=== PATIENT | female | born 1950 | race Caucasian/White ===

== ENCOUNTER 2018-05-04 08:00 | Outpatient (CLI) | payer OTHER ==
[2018-05-04 19:37] LABS: BILIRUBIN,URINE NEGATIVE (NEGATIVE); GLUCOSE, URINE (UA) NEGATIVE (NEGATIVE); KETONES,URINE (UA) NEGATIVE (NEGATIVE); LEUKOCYTE ESTERASE, URINE LARGE (NEGATIVE); NITRITE,URINE NEGATIVE (NEGATIVE); OCCULT BLOOD,URINE SMALL (NEGATIVE); PH,URINE 5.5 PH (5.0-7.5); PROTEIN,URINE NEGATIVE (NEGATIVE); UROBILINOGEN,URINE 0.2 (NORMAL) E.U./dL (NORMAL)
[2018-05-04 19:38] LABS: BACTERIA,URINE None Seen /HPF (None Seen); CLARITY,URINE CLEAR (CLEAR); RBC,URINE 0-5 /HPF (0-5); SQUAMOUS EPITHELIAL CELL,UR NONE SEEN (<= Few)
== END 2018-05-04 08:01 | disposition home or self-care (01) ==
LOC: LAB.R 08:00
PROVIDERS: ATTEND Physician Assistant Medical
DX: R30.0 Dysuria (principal); N10 Acute pyelonephritis
CPT/HCPCS: 81001; 87077; 87086; 87181

== ENCOUNTER 2019-04-26 08:00 | Outpatient (CLI) | payer OTHER ==
[2019-04-26 18:38] LABS: BILIRUBIN,URINE NEGATIVE (NEGATIVE); GLUCOSE, URINE (UA) NEGATIVE (NEGATIVE); KETONES,URINE (UA) NEGATIVE (NEGATIVE); LEUKOCYTE ESTERASE, URINE TRACE (NEGATIVE); NITRITE,URINE NEGATIVE (NEGATIVE); OCCULT BLOOD,URINE TRACE-INTA (NEGATIVE); PROTEIN,URINE NEGATIVE (NEGATIVE); UROBILINOGEN,URINE 0.2 (NORMAL) E.U./dL (NORMAL)
[2019-04-26 18:46] LABS: CLARITY,URINE CLEAR (CLEAR)
[2019-04-26 18:53] LABS: BACTERIA,URINE Rare /HPF (None Seen); RBC,URINE 0-5 /HPF (0-5); SQUAMOUS EPITHELIAL CELL,UR FEW Squamous (<= Few)
== END 2019-04-26 23:59 | disposition home or self-care (01) ==
LOC: LAB.N 08:00
PROVIDERS: ATTEND Physician Assistant Medical
DX: M54.5 Low back pain (principal); N10 Acute pyelonephritis
CPT/HCPCS: 81001; 81003; 87086

== ENCOUNTER 2019-10-23 08:00 | Outpatient (CLI) | payer OTHER ==
[2019-10-23 12:29] LABS: BASOPHILS # (AUTO) 0.1 10^3/uL (0.0-0.1); BASOPHILS % (AUTO) 1.2 %; EOSINOPHILS % (AUTO) 0.6 %; HGB - HEMOGLOBIN 12.6 g/dL (12.0-16.0); LYMPHOCYTES # (AUTO) 1.6 10^3/uL (1.5-3.5); LYMPHOCYTES % (AUTO) 31.1 %; MEAN CORPUSCULAR HEMOGLOBIN 27.7 pg (27.0-31.0); MEAN CORPUSCULAR HGB CONC 31.6 g/dL (32.0-36.0); MEAN CORPUSCULAR VOLUME 87.7 fL (81.0-99.0); MEAN PLATELET VOLUME 9.6 fL (7.9-10.8); MONOCYTES # (AUTO) 0.3 10^3/uL (0.0-1.0); MONOCYTES % (AUTO) 5.3 %; NEUTROPHILS # (AUTO) 3.1 10^3/uL (1.5-6.6); NEUTROPHILS % (AUTO) 61.6 %; PLT - PLATELET COUNT 225 10^3/uL (130-450); RED BLOOD COUNT 4.55 10^6/uL (4.20-5.40); RED CELL DISTRIBUTION WIDTH 13.2 % (12.0-15.0); WHITE BLOOD COUNT 5.1 x10^3/uL (4.8-10.8)
[2019-10-23 12:45] LABS: ALBUMIN 4.4 g/dL (3.2-5.5); ALBUMIN/GLOBULIN RATIO 1.1 (1.0-2.2); BILIRUBIN,TOTAL 0.7 mg/dL (0.2-1.0); CALCIUM 9.1 mg/dL (8.5-10.3); TOTAL PROTEIN 8.3 g/dL (6.7-8.2)
== END 2019-10-23 23:59 | disposition home or self-care (01) ==
LOC: LAB.N 08:00
PROVIDERS: ATTEND Physician Assistant Medical
DX: I10 Essential (primary) hypertension (principal)
CPT/HCPCS: 36415; 80053; 85025

== ENCOUNTER 2020-01-30 08:00 | Outpatient (CLI) | payer OTHER ==
[2020-01-30 19:39] LABS: BILIRUBIN,URINE NEGATIVE (NEGATIVE); GLUCOSE, URINE (UA) NEGATIVE (NEGATIVE); KETONES,URINE (UA) NEGATIVE (NEGATIVE); LEUKOCYTE ESTERASE, URINE TRACE (NEGATIVE); NITRITE,URINE NEGATIVE (NEGATIVE); OCCULT BLOOD,URINE NEGATIVE (NEGATIVE); PROTEIN,URINE NEGATIVE (NEGATIVE); UROBILINOGEN,URINE 0.2 (NORMAL) E.U./dL (NORMAL)
[2020-01-30 19:56] LABS: CLARITY,URINE CLEAR (CLEAR)
[2020-01-30 20:10] LABS: BACTERIA,URINE Rare /HPF (None Seen); EPITHELIAL CELLS,UR RARE Transitional /HPF (<= Few); RBC,URINE 0-5 /HPF (0-5); SQUAMOUS EPITHELIAL CELL,UR FEW Squamous (<= Few); WBC CLUMPS,URINE PRESENT
== END 2020-01-30 23:59 | disposition home or self-care (01) ==
LOC: LAB.R 08:00
PROVIDERS: ATTEND Physician Assistant Medical
DX: N39.0 Urinary tract infection, site not specified (principal)
CPT/HCPCS: 81001; 81003; 87086

== ENCOUNTER 2020-02-19 08:57 | Outpatient (CLI) | payer OTHER ==
[2020-02-19 12:22] LABS: CALCIUM 8.8 mg/dL (8.5-10.3); CREATININE 0.9 mg/dL (0.4-1.0)
== END 2020-02-19 08:58 | disposition home or self-care (01) ==
LOC: LAB.N 08:57
PROVIDERS: ATTEND Physician Assistant Medical
DX: E87.6 Hypokalemia (principal)
CPT/HCPCS: 36415; 80048

== ENCOUNTER 2020-09-10 11:10 | Outpatient (CLI) | payer OTHER | END 2020-09-10 11:11 | disposition home or self-care (01) | LOC: COV 11:10 | PROVIDERS: ATTEND Family Medicine | DX: Z20.828 Contact with and (suspected) exposure to other viral communicable diseases (principal) ==

== ENCOUNTER 2022-09-30 08:15 | Outpatient (CLI) | payer MEDICARE | END 2022-09-30 08:16 | disposition critical access hospital (66) | LOC: EMS 08:15 | DX: R41.0 Disorientation, unspecified (principal); R44.3 Hallucinations, unspecified | CPT/HCPCS: A0425; A0429 ==

== ENCOUNTER 2022-09-30 09:35 | Emergency (ER) | payer MEDICARE, OTHER ==
[2022-09-30 10:37] LABS: BASOPHILS % (AUTO) 0.5 %; EOSINOPHILS % (AUTO) 0.4 %; HCT - HEMATOCRIT 36.6 % (37.0-47.0); HGB - HEMOGLOBIN 12.3 g/dL (12.0-16.0); LYMPHOCYTES # (AUTO) 1.1 10^3/uL (1.5-3.5); LYMPHOCYTES % (AUTO) 19.1 %; MEAN CORPUSCULAR HEMOGLOBIN 29.3 pg (27.0-31.0); MEAN CORPUSCULAR HGB CONC 33.6 g/dL (32.0-36.0); MEAN CORPUSCULAR VOLUME 87.1 fL (81.0-99.0); MEAN PLATELET VOLUME 9.3 fL (7.9-10.8); MONOCYTES # (AUTO) 0.2 10^3/uL (0.0-1.0); MONOCYTES % (AUTO) 4.2 %; NEUTROPHILS # (AUTO) 4.3 10^3/uL (1.5-6.6); NEUTROPHILS % (AUTO) 75.6 %; PLT - PLATELET COUNT 205 10^3/uL (130-450); RED CELL DISTRIBUTION WIDTH 12.4 % (12.0-15.0); WHITE BLOOD COUNT 5.7 x10^3/uL (4.8-10.8)
[2022-09-30 10:38] LABS: MUDS CUTOFF CONCENTRATIONS CUTOFF CONC BELOW:
[2022-09-30 10:40] LABS: BILIRUBIN,URINE NEGATIVE (NEGATIVE); GLUCOSE, URINE (UA) NEGATIVE (NEGATIVE); KETONES,URINE (UA) 15 mg/dL (NEGATIVE); LEUKOCYTE ESTERASE, URINE LARGE (NEGATIVE); NITRITE,URINE NEGATIVE (NEGATIVE); OCCULT BLOOD,URINE SMALL (NEGATIVE); PROTEIN,URINE NEGATIVE (NEGATIVE); UROBILINOGEN,URINE 0.2 (NORMAL) E.U./dL (NORMAL)
[2022-09-30 10:51] LABS: CLARITY,URINE HAZY (CLEAR)
[2022-09-30 10:52] LABS: AMPHETAMINE SCREEN,URINE NEGATIVE (NEGATIVE); BACTERIA,URINE Few /HPF (None Seen); BARBITURATE SCREEN,UR NEGATIVE (NEGATIVE); BENZODIAZEPINES SCREEN, URINE NEGATIVE (NEGATIVE); COCAINE SCREEN URINE NEGATIVE (NEGATIVE); METHADONE SCREEN, URINE NEGATIVE (NEGATIVE); METHAMPHETAMINES SCREEN, URINE NEGATIVE (NEGATIVE); OPIATE SCREEN, URINE NEGATIVE (NEGATIVE); OXYCODONE SCREEN, URINE NEGATIVE (NEGATIVE); PROPOXYPHENE SCREEN, URINE NEGATIVE (NEGATIVE); SQUAMOUS EPITHELIAL CELL,UR FEW Squamous (<= Few); THC CANNABINOID SCREEN, URINE NEGATIVE (NEGATIVE); TRICYCLIC ANTIDEPRESSANT,URINE NEGATIVE (NEGATIVE)
[2022-09-30 10:53] LABS: ACETAMINOPHEN < 10 ug/mL (10-30); ALBUMIN 4.5 g/dL (3.2-5.5); ALBUMIN/GLOBULIN RATIO 1.3 (1.0-2.2); ALKALINE PHOSPHATASE 58 IU/L (42-121); ALT ALANINE AMINOTRANSFERASE 16 IU/L (10-60); AST ASPARTATE AMINOTRANSFERASE 26 IU/L (10-42); BILIRUBIN,TOTAL 1.3 mg/dL (0.2-1.0); BUN - BLOOD UREA NITROGEN 24 mg/dL (6-20); CALCIUM 9.3 mg/dL (8.5-10.3); CARBON DIOXIDE - CO2 26 mmol/L (21-32); CHLORIDE 102 mmol/L (101-111); CREATININE 0.9 mg/dL (0.4-1.0); ETOH - ETHANOL < 5.0 mg/dL; GFR - MDRD 62 (>89); GLUCOSE 103 mg/dL (70-100); LIPASE 34 U/L (22-51); POTASSIUM 3.5 mmol/L (3.5-5.0); SALICYLATE < 6.0 mg/dL; SODIUM 136 mmol/L (135-145); TOTAL PROTEIN 7.9 g/dL (6.7-8.2)
--- NOTE | 2022-09-30 11:44 | CT Report ---
PROCEDURE: HEAD WO INDICATIONS: new onset hallucinations TECHNIQUE: Noncontrast 4.5 mm thick angled axial sections acquired from the foramen magnum to the vertex. For r adiation dose reduction, the following was used: automated exposure control, adjustment of mA and/or kV according to patient size. COMPARISON: None. FINDINGS: Image quality: Excellent. CSF spaces: Basal cisterns are patent. No extra-axial fluid collections. Ventricles are normal in size and shape. Brain: No midline shift. No intracranial masses or hemorrhage. Gilbert-white matter interface is norm al. Skull and face: Calvarium and visualized facial bones are intact, without suspicious lesions. Sinuses: Opacification of the visualized portions of the right maxillary sinus. Opacification of the some of the right ethmoid air cells. Paranasal sinuses, left maxillary sinus, frontal sinuses are jonathan ar. Mastoids are clear. IMPRESSION: No acute intracranial abnormality. Opacification of the visualized portions of the right maxillary sinus most consistent with sinusitis. Chronicity is uncertain. Reviewed by: Niraj Salinas MD on 09/30/2022 10:42 AM RYAN Approved by: Niraj Salinas MD on 09/30/2022 10:42 AM RYAN Station ID: [id number]
--- NOTE | 2022-09-30 12:06 | ED Physician Documentation ---
PD HPI MHE - Stated complaint Stated Complaint: MHE - Chief complaint Chief Complaint: MHE - History obtained from History obtained from: Patient, EMS - History of Present Illness Primary symptom: Psychosis Timing - onset: How many days ago (2) Contributing factors: Family, Money Similar symptoms before: Has not had sx before Recently seen: Not recently seen - Additional information Additional information: 71-year-old female the history of hypertension presents to the emergency department with francis hallucinations that she is seeing her sister have CPR performed on her. She had this yesterday and she has had this again today. She called 911 both times. Today she was been asked to come to the emergency department for evaluation. She is able to tell me now that she does not believe there was ever anything wrong with her sister. She tells me that she is under significant stress. The 2 of them are living in an apartment they have lived there for 20 years and they are now both without jobs and looking for subsidy to the rent. PD PAST MEDICAL HISTORY - Past Medical History Past Medical History: Yes Cardiovascular: Hypertension - Past Surgical History Past Surgical History: Yes General: Cholecystectomy - Present Medications Home Medications: Ambulatory Orders Medication Instructions Recorded Confirmed Atenolol 50 mg PO BID 05/18/13 09/30/22 Prazosin HCl [Minipress] 2 mg PO 3-4XD 05/18/13 09/30/22 - Allergies Allergies/Adverse Reactions: Allergies Allergy/AdvReac Type Severity Reaction Status Date / Time cefaclor [From Ceclor] Allergy Intermediate Itching Verified 09/30/22 09:50 cephradine [From Velosef] Allergy Intermediate Itching Verified 09/30/22 09:50 erythromycin base Allergy Intermediate Nausea Verified 09/30/22 09:50 [Erythromycin Base] naproxen [From Naprosyn] Allergy Intermediate Rash Verified 09/30/22 09:50 sulfamethoxazole Allergy Intermediate Rash Verified 09/30/22 09:50 [From Septra] trimethoprim [From Septra] Allergy Intermediate Rash Verified 09/30/22 09:50 erythromycin estolate * Allergy Mild Nausea Verified 09/30/22 09:50 [From Ilosone] Penicillins Allergy Mild Rash Verified 09/30/22 09:50 ibuprofen [From Motrin] AdvReac Intermediate Itching Verified 09/30/22 09:50 meperidine HCl * AdvReac Intermediate Headache Verified 09/30/22 09:50 [From Demerol] acetaminophen [From Tylox] AdvReac Mild Nausea Verified 09/30/22 09:50 oxycodone HCl * [From Tylox] AdvReac Mild Nausea Verified 09/30/22 09:50 bp Allergy Intermediate Edema Uncoded 09/30/22 09:50 - Social History Does the pt smoke?: No Smoking Status: Never smoker Does the pt drink ETOH?: No Does the pt have substance abuse?: No - Immunizations Immunizations are current?: Yes - POLST Patient has POLST: No Results - Vitals Vitals: Vital Signs - 24 hr 09/30/22 09:36 Temperature 36.3 C L Heart Rate 80 Respiratory 16 Rate Blood Pressure 203/113 H O2 Saturation 100 Oxygen O2 Source Room air - Labs Labs: Laboratory Tests 09/30/22 09/30/22 09/30/22 10:25 10:25 10:25 WBC 5.7 RBC 4.20 Hgb 12.3 Hct 36.6 L MCV 87.1 MCH 29.3 MCHC 33.6 RDW 12.4 Plt Count 205 MPV 9.3 Neut # (Auto) 4.3 Lymph # (Auto) 1.1 L Bell # (Auto) 0.2 Eos # (Auto) 0.0 Baso # (Auto) 0.0 Absolute Nucleated RBC 0.00 Nucleated RBC % 0.0 Sodium 136 Potassium 3.5 Chloride 102 Carbon Dioxide 26 Anion Gap 8.0 BUN 24 H Creatinine 0.9 Estimated GFR (MDRD) 62 L Glucose 103 H Calcium 9.3 Total Bilirubin 1.3 H AST 26 ALT 16 Alkaline Phosphatase 58 Total Protein 7.9 Albumin 4.5 Globulin 3.4 Albumin/Globulin Ratio 1.3 Lipase 34 TSH 2.11 Urine Color Urine Clarity Urine pH Ur Specific [place] Urine Protein Urine Glucose (UA) Urine Ketones Urine Occult Blood Urine Nitrite Urine Bilirubin Urine Urobilinogen Ur Leukocyte Esterase Urine RBC Urine WBC Ur Squamous Epith Cells Urine Bacteria Ur Microscopic Review Urine Culture Comments Salicylates < 6.0 Urine Opiates Screen Ur Oxycodone Screen Urine Methadone Screen Ur Propoxyphene Screen Acetaminophen < 10 L Ur Barbiturates Screen Ur Tricyclics Screen Ur Phencyclidine Scrn Ur Amphetamine Screen U Methamphetamines Scrn U Benzodiazepines Scrn Urine Cocaine Screen U Cannabinoids Screen Ethyl Alcohol < 5.0 09/30/22 10:28 WBC RBC Hgb Hct MCV MCH MCHC RDW Plt Count MPV Neut # (Auto) Lymph # (Auto) Bell # (Auto) Eos # (Auto) Baso # (Auto) Absolute Nucleated RBC Nucleated RBC % Sodium Potassium Chloride Carbon Dioxide Anion Gap BUN Creatinine Estimated GFR (MDRD) Glucose Calcium Total Bilirubin AST ALT Alkaline Phosphatase Total Protein Albumin Globulin Albumin/Globulin Ratio Lipase TSH Urine Color YELLOW Urine Clarity HAZY Urine pH 6.0 Ur Specific [place] 1.015 Urine Protein NEGATIVE Urine Glucose (UA) NEGATIVE Urine Ketones 15 H Urine Occult Blood SMALL H Urine Nitrite NEGATIVE Urine Bilirubin NEGATIVE Urine Urobilinogen 0.2 (NORMAL) Ur Leukocyte Esterase LARGE H Urine RBC 6-10 H Urine WBC 6-10 H Ur Squamous Epith Cells FEW Squamous Urine Bacteria Few Ur Microscopic Review INDICATED Urine Culture Comments INDICATED Salicylates Urine Opiates Screen NEGATIVE Ur Oxycodone Screen NEGATIVE Urine Methadone Screen NEGATIVE Ur Propoxyphene Screen NEGATIVE Acetaminophen Ur Barbiturates Screen NEGATIVE Ur Tricyclics Screen NEGATIVE Ur Phencyclidine Scrn NEGATIVE Ur Amphetamine Screen NEGATIVE U Methamphetamines Scrn NEGATIVE U Benzodiazepines Scrn NEGATIVE Urine Cocaine Screen NEGATIVE U Cannabinoids Screen NEGATIVE Ethyl Alcohol - Rads (name of study) CT head Radiology: Prelim report reviewed (Impression: No acute intracranial abnormality. Opacification Acacian of the visualized portion of the right maxillary sinus most consistent with sinusitis. Chronicity is uncertain.), EMP read indepedently, See rad report PD MEDICAL DECISION MAKING - ED course Complexity details: reviewed old records, reviewed results, re-evaluated patient, considered differential, d/w patient, d/w family ED course: 71 y/o female with acute psychosis and poor memory. Her case is not clear and we have asked for assistance with diagnosis from telepsych. At shift change her telepsych evaluation is pending and her care is turned over to the oncoming ED physician. Findings of sinusitis on CT are correlated with chronic sinus congestion and no current symptoms. She reports undulation of symptoms over years time. Departure - Departure Clinical Impression: Psychiatric symptoms
--- NOTE | 2022-09-30 17:05 | ED Physician Documentation ---
ED Addendum - Addendum Addendum: 09/30/22 17:[address] Car at shift change. 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 Case discussed with tele-psychiatrist. Recommends risperidone 1 mg p.o. nightly which we will prescribe and I sent the prescription electronically to [facility] per the daughters preference. She is willing to take her home and we have asked social work to give them resources on help with dementia. Discussed with patient that she is no longer able to drive which is very upsetting to her. Her blood pressure also remained on the high side here and I sent a prescription for his lisinopril 20 mg p.o. daily to [facility] as well. Disposition: Discharged home Condition: Stable Diagnosis: 1. Early onset dementia with psychosis
--- NOTE | 2022-09-30 17:10 | TELEPSYCH PHYS NOTE ---
Telepsych Consultation Note Consult: Array Name: KEILY JAMISON : 1950 Date and Time: 09/30/2022 7:04:22 PM Location of the patient: [facility] ED Location of the doctor: My office in [place], [place] Length of consult: 50 mins This evaluation was conducted via video telepsychiatry with the assistance of onsite staff Reason for consult: ED evaluation Requested by: Dr Car History of Present Illness: 71 year-old female without formal psychiatric history presents to the ED BIB EMS after she called 911 c/o hallucinations and paranoid/persecutory delusions regarding home invasion and concerns that her sister was getting CPR. At this time, pt is calm, cooperative, and oriented to self and location, states she was "having hallucinations I guess". She endorses stress, anxiety, and insomnia, but she denies SI/HI/. Per daughter Juliana, pt has an 18-month history of declining cognition, forgetfulness, and non-sensical and repetitive speech. Pt is non-compliant with all prescribed meds including her blood pressure medications, but she is not able to demonstrate an understanding of the risks of non-compliance. Collateral Contacted: Yes Collateral name: Daughter Juliana @ [phone] Collateral phone number: Collateral relationship to the patient: Sleep issues?: Yes Sleep Quantity: Acute insomnia Sleep Quality: Psychiatric History/Treatment History: Past diagnoses: None Hospitalizations: No Current Treatment:No Suicide Assessment: PSS-3: 1) Over the past 2 weeks have you felt down, depressed or hopeless? Yes 2) Over the past 2 weeks have you had thoughts of killing yourself? No 3) Have you ever in your life attempted to kill yourself? No Within the past 6 months? [facility] Safety Assessment: Risk Factors Stressors: Early onset dementia Attempts/Self-injury: No Impulsivity:No Drug/Alcohol History:No Trauma History:No Access to firearms:No HI/Violence/Property destruction:No Legal: No Family Psych History:Unknown-NA Family History of suicide:Unknown-NA Protective Factors: Can handle stress well? No Quaker? No External: Social supports/ Therapeutic relationships: Yes Description: Relationship history: Single Living situation: Lives alone/independently in her own apartment Employment: No Education: HS Responsibility to family/children/work: Yes Description: Future orientation:Yes Description: Health History: Medical History: HTN Medications & Freq: non-compliant Allergies: Multiple antibiotics - see chart Mental Status Exam: Appearance and Attire: Good eye contact Psychomotor agitation: No abnormality Attitude and behavior: Cooperative, Guarded Speech: No abnormality, Mood: Depressed Affect: Flat Thought process: Linear Thought content: No suicidal ideation, No homicidal ideation, Paranoia, Delusions, Ideas of persecution Perception: Auditory hallucinations, Visual hallucinations Intel: Unknown Abstract: Poor reasoning Language: No abnormality Orientation: Grossly oriented Sense: Normal Knowledge: Unknown Memory: Unknown Insight: Moderate impairment Judgement: Moderate impairment Gait: Unknown Impression/Risk Assessment: Current Suicide Risk Elevated? No Current Violence Risk Elevated? No Issues with ability to care for self? Yes Summary: 71 year-old female with unspecified psychosis, unspecified neurocognitive disorder, r/o dementia; she is low-risk imminent violence or intentional self-harm but she lacks capacity for her own medical decision-viri burkett NOTE: Capacity is a fluid determination and may be re-assessed as indicated. Case d/w pt's daughter Juliana at length regarding the above. 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 Assign proxy medical decision-maker i.e. daughter Juliana while guardianship is sought; Juliana is agreeable with the above. 2. D/C to home; 3. Rx risperidone 1mg PO qHS; 4. Follow-up with PCP and/or OP MH resources i.e. geriatric psychiatry; in the outpatient setting, consider Aricept or Namenda to slow the progression of possible dementia Level of Care: ED to outpatient Psychiatric Clearance: Yes Observation level 1:1 needed?: No Pharmacological: As above Patient psychotic?Yes Was a standing psychotic ordered? Yes Description: Therapy: Supportive Follow up needed while in the hospital?: No Discussed plan with onsite sales team manager: Yes Who ED MD Car Other: List names and roles of persons who participated in consult: Dr Car
[2022-09-30 17:28] VITALS: BP 211/120
== END 2022-09-30 17:29 | disposition home or self-care (01) ==
LOC: ED 09:35
DX: F03.92 Unspecified dementia, unspecified severity, with psychotic disturbance (principal)
CPT/HCPCS: 36415; 70450; 80053; 80306; 80307; 81001; 83690; 84443; 85025; 87086; 99283; 99284; G0426; G0480; Q3014; 80320; 80329; 81003; 90834

== ENCOUNTER 2023-10-03 09:15 | Outpatient (CLI) | payer MEDICARE ==
--- NOTE | 2023-10-03 12:09 | Ultrasound Report ---
PROCEDURE: Retroperitoneal INDICATIONS: CKD TECHNIQUE: Real-time scanning was performed of the retroperitoneal organs, with image documentation. COMPARISON: None. FINDINGS: Kidneys: Kidneys are normal in size. Right kidney measures 8.2 cm long; left kidney measures 9.7 cm long. Right renal cortical thickness is 0.7 cm; left renal cortical thickness is 0.9 cm. No solid masses, hydronephrosis, or nephrolithiasis. There is a 1.3 cm left lower pole simple cyst. Bladder: Pre-void bladder volume is 101.91 mL. Post-void residual is 76.15 mL. Pre-void images dem onstrate no intraluminal masses or stones. On pre-void images, bilateral ureteral jets are noted wit h color Doppler interrogation. (Of note, ureteral jets may not be detectable in up to 25% of cases d ue to insufficient differences in specific gravity between ureteral and bladder urine). Miscellaneous: No free abdominal fluid. IMPRESSION: 1. No hydronephrosis or nephrolithiasis. 2. Large post void residual. Reviewed by: Shayna Park MD on 10/03/2023 12:08 PM PST Approved by: Shayna Park MD on 10/03/2023 12:08 PM PST Station ID: [id number]
== END 2023-10-03 09:16 | disposition home or self-care (01) ==
LOC: DI 09:15
PROVIDERS: ATTEND Family Medicine
DX: N18.31 Chronic kidney disease, stage 3a (principal)

== ENCOUNTER 2024-01-23 18:31 | Outpatient (CLI) | payer MEDICARE | END 2024-01-23 23:59 | disposition critical access hospital (66) | LOC: EMS 18:31 | DX: R53.1 Weakness (principal); R41.0 Disorientation, unspecified; R30.9 Painful micturition, unspecified; I10 Essential (primary) hypertension; R50.9 Fever, unspecified; R39.89 Other symptoms and signs involving the genitourinary system; R00.0 Tachycardia, unspecified | CPT/HCPCS: A0425; A0427 ==

== ENCOUNTER 2024-01-23 18:48 | Inpatient (IN) | payer MEDICARE ==
--- NOTE | 2024-01-23 18:56 | ED Physician Documentation ---
PD HPI FEVER - Stated complaint Stated Complaint: DIZZINESS/FEVER - History obtained from History obtained from: Patient, Family, EMS - Additional information Additional information: This is a alberto 73-year-old woman presents by EMS accompanied by her daughter. She has a history of dementia and developed some weakness today and had a fall without injury. EMS noted her to be febrile to 101, tachycardic to 115 or so and brought her in for evaluation for that. PD PAST MEDICAL HISTORY - Past Medical History Cardiovascular: Hypertension - Past Surgical History Past Surgical History: Yes General: Cholecystectomy - Present Medications Home Medications: Ambulatory Orders Medication Instructions Recorded Confirmed Atenolol 50 mg PO BID 05/18/13 01/23/24 Lisinopril [Zestril] 20 mg PO DAILY #30 tablet 09/30/22 01/23/24 risperiDONE [RisperDAL] 1 mg PO QPM #30 tablet 09/30/22 01/23/24 Atorvastatin [Lipitor] 20 mg PO DAILY 01/23/24 01/23/24 Donepezil [Aricept] 5 mg PO DAILY PM 01/23/24 01/23/24 Mirtazapine 15 mg PO DAILY PM 01/23/24 01/23/24 amLODIPine [Norvasc] 2.5 mg PO DAILY 01/23/24 01/23/24 traZODone [Desyrel] 25 mg PO DAILY PM 01/23/24 01/23/24 - Allergies Allergies/Adverse Reactions: Allergies Allergy/AdvReac Type Severity Reaction Status Date / Time cefaclor [From Ceclor] Allergy Intermediate Itching Verified 01/23/24 18:54 cephradine [From Velosef] Allergy Intermediate Itching Verified 01/23/24 18:54 erythromycin base Allergy Intermediate Nausea Verified 01/23/24 18:54 [Erythromycin Base] naproxen [From Naprosyn] Allergy Intermediate Rash Verified 01/23/24 18:54 sulfamethoxazole Allergy Intermediate Rash Verified 01/23/24 18:54 [From Septra] trimethoprim [From Septra] Allergy Intermediate Rash Verified 01/23/24 18:54 erythromycin estolate * Allergy Mild Nausea Verified 01/23/24 18:54 [From Ilosone] Penicillins Allergy Mild Rash Verified 01/23/24 18:54 ibuprofen [From Motrin] AdvReac Intermediate Itching Verified 02/25/24 18:54 meperidine HCl * AdvReac Intermediate Headache Verified 01/23/24 18:54 [From Demerol] acetaminophen [From Tylox] AdvReac Mild Nausea Verified 01/23/24 18:54 oxycodone HCl * [From Tylox] AdvReac Mild Nausea Verified 01/23/24 18:54 bp Allergy Intermediate Edema Uncoded 01/23/24 18:54 - Social History Does the pt smoke?: No Smoking Status: Never smoker Does the pt drink ETOH?: No Does the pt have substance abuse?: No - Immunizations Immunizations are current?: Yes - POLST Patient has POLST: No PD ED PE NORMAL - Vitals Vital signs reviewed: Yes - General General: No acute distress, Other (Alert and oriented to person and place but not time or events. Appears well and nontoxic.) - HEENT HEENT: Pharynx benign - Neck Neck: Supple, no meningeal sign, No bony TTP - Cardiac Cardiac: Other (Mild resting tachycardia) - Respiratory Respiratory: No respiratory distress, Clear bilaterally - Abdomen Abdomen: Non tender - Psych Psych: Normal mood Results - Vitals Vitals: Vital Signs - 24 hr 01/23/24 01/23/24 18:55 19:24 Temperature 36.7 C Heart Rate 110 H 96 Respiratory 18 18 Rate Blood Pressure 170/100 H 164/90 H O2 Saturation 100 96 Oxygen O2 Source Room air - Labs Labs: Laboratory Tests 01/23/24 01/23/24 01/23/24 19:03 19:03 19:03 WBC 4.6 L RBC 4.00 L Hgb 11.2 L Hct 34.8 L MCV 87.0 MCH 28.0 MCHC 32.2 RDW 12.8 Plt Count 118 L MPV 8.9 Neut # (Auto) 3.4 Lymph # (Auto) 0.6 L [place] # (Auto) 0.6 Eos # (Auto) 0.0 Baso # (Auto) 0.0 Absolute Nucleated RBC 0.00 Nucleated RBC % 0.0 Sodium 132 L Potassium 3.3 L Chloride 97 L Carbon Dioxide 26 Anion Gap 9.0 BUN 20 Creatinine 1.0 Estimated GFR (MDRD) 55 L Glucose 106 H Lactic Acid 0.9 Calcium 9.1 Total Bilirubin 0.9 AST 17 ALT 9 L Alkaline Phosphatase 68 Total Protein 7.2 Albumin 4.5 Globulin 2.7 Albumin/Globulin Ratio 1.7 Lipase 38 Urine Color Urine Clarity Urine pH Ur Specific [place] Urine Protein Urine Glucose (UA) Urine Ketones Urine Occult Blood Urine Nitrite Urine Bilirubin Urine Urobilinogen Ur Leukocyte Esterase Urine RBC Urine WBC Ur Squamous Epith Cells Amorphous Sediment Urine Bacteria Ur Microscopic Review Urine Culture Comments Nasal Adenovirus (PCR) Nasal B. parapertussis DNA (PCR) Nasal Coronavir 229E PCR Nasal Coronavir HKU1 PCR Nasal Coronavir NL63 PCR Nasal Coronavir OC43 PCR Nasal Enterovir/Rhinovir PCR Nasal Influenza B PCR Nasal Influenza A PCR Nasal Parainfluen 1 PCR Nasal Parainfluen 2 PCR Nasal Parainfluen 3 PCR Nasal Parainfluen 4 PCR Nasal RSV (PCR) Nasal B.pertussis DNA PCR Nasal C.pneumoniae (PCR) [place] Human Metapneumo PCR Nasal M.pneumoniae (PCR) Nasal SARS-CoV-2 (PCR) 01/23/24 01/23/24 19:27 20:07 WBC RBC Hgb Hct MCV MCH MCHC RDW Plt Count MPV Neut # (Auto) Lymph # (Auto) [place] # (Auto) Eos # (Auto) Baso # (Auto) Absolute Nucleated RBC Nucleated RBC % Sodium Potassium Chloride Carbon Dioxide Anion Gap BUN Creatinine Estimated GFR (MDRD) Glucose Lactic Acid Calcium Total Bilirubin AST ALT Alkaline Phosphatase Total Protein Albumin Globulin Albumin/Globulin Ratio Lipase Urine Color YELLOW Urine Clarity CLOUDY Urine pH 8.5 H Ur Specific [place] 1.015 Urine Protein TRACE Urine Glucose (UA) NEGATIVE Urine Ketones NEGATIVE Urine Occult Blood MODERATE H Urine Nitrite POSITIVE H Urine Bilirubin NEGATIVE Urine Urobilinogen 0.2 (NORMAL) Ur Leukocyte Esterase TRACE H Urine RBC 6-10 H Urine WBC 4-5 Ur Squamous Epith Cells RARE Squamous Amorphous Sediment Few Urine Bacteria Many H Ur Microscopic Review INDICATED Urine Culture Comments INDICATED Nasal Adenovirus (PCR) NOT DETECTED Nasal B. parapertussis DNA (PCR) NOT DETECTED Nasal Coronavir 229E PCR NOT DETECTED Nasal Coronavir HKU1 PCR NOT DETECTED Nasal Coronavir NL63 PCR NOT DETECTED Nasal Coronavir OC43 PCR NOT DETECTED Nasal Enterovir/Rhinovir PCR NOT DETECTED Nasal Influenza B PCR NOT DETECTED Nasal Influenza A PCR NOT DETECTED Nasal Parainfluen 1 PCR NOT DETECTED Nasal Parainfluen 2 PCR NOT DETECTED Nasal Parainfluen 3 PCR NOT DETECTED Nasal Parainfluen 4 PCR NOT DETECTED Nasal RSV (PCR) NOT DETECTED Nasal B.pertussis DNA PCR NOT DETECTED Nasal C.pneumoniae (PCR) NOT DETECTED [place] Human Metapneumo PCR NOT DETECTED Nasal M.pneumoniae (PCR) NOT DETECTED Nasal SARS-CoV-2 (PCR) DETECTED A PD Medical Decision Making - ED course ED course: 73-year-old woman presents with fever, tachycardia, and concern for UTI with positive UA. She does have sepsis criteria with tachycardia and fever. She does not have a white count or lactic acidosis. She is administered Levaquin after blood cultures noting extensive antibiotic allergies. Spoke with telehealth physician for admission at 8:21 PM. Also Covid 19 pos Departure - Departure Disposition: 66 [facility] DC/Xfer Clinical Impression: COVID-19 UTI (urinary tract infection) Qualifiers: Urinary tract infection type: site unspecified Hematuria presence: without hematuria Qualified Code(s): N39.0 - Urinary tract infection, site not specified Sepsis Qualifiers: Sepsis type: sepsis due to unspecified organism Sepsis acute organ dysfunction status: without acute organ dysfunction Qualified Code(s): A41.9 - Sepsis, unspecified organism Condition: Serious
[2024-01-23 19:12] LABS: BASOPHILS % (AUTO) 0.4 %; HCT - HEMATOCRIT 34.8 % (37.0-47.0); HGB - HEMOGLOBIN 11.2 g/dL (12.0-16.0); LYMPHOCYTES # (AUTO) 0.6 10^3/uL (1.5-3.5); LYMPHOCYTES % (AUTO) 12.1 %; MEAN CORPUSCULAR HGB CONC 32.2 g/dL (32.0-36.0); MEAN PLATELET VOLUME 8.9 fL (7.9-10.8); MONOCYTES # (AUTO) 0.6 10^3/uL (0.0-1.0); MONOCYTES % (AUTO) 13.4 %; NEUTROPHILS # (AUTO) 3.4 10^3/uL (1.5-6.6); NEUTROPHILS % (AUTO) 73.7 %; PLT - PLATELET COUNT 118 10^3/uL (130-450); RED CELL DISTRIBUTION WIDTH 12.8 % (12.0-15.0); WHITE BLOOD COUNT 4.6 x10^3/uL (4.8-10.8)
[2024-01-23] MEDS: SODIUM CHLORIDE 0.9% 1,000 ML IV STA (19:15)
[2024-01-23 19:34] LABS: ALBUMIN 4.5 g/dL (3.2-5.5); ALBUMIN/GLOBULIN RATIO 1.7 (1.0-2.2); BILIRUBIN,TOTAL 0.9 mg/dL (0.2-1.0); CALCIUM 9.1 mg/dL (8.5-10.3); POTASSIUM 3.3 mmol/L (3.5-4.5); TOTAL PROTEIN 7.2 g/dL (6.4-8.9)
[2024-01-23 19:36] LABS: BILIRUBIN,URINE NEGATIVE (NEGATIVE); GLUCOSE, URINE (UA) NEGATIVE (NEGATIVE); KETONES,URINE (UA) NEGATIVE (NEGATIVE); LEUKOCYTE ESTERASE, URINE TRACE (NEGATIVE); NITRITE,URINE POSITIVE (NEGATIVE); OCCULT BLOOD,URINE MODERATE (NEGATIVE); PH,URINE 8.5 PH (5.0-7.5); PROTEIN,URINE TRACE mg/dL (NEGATIVE); UROBILINOGEN,URINE 0.2 (NORMAL) E.U./dL (NORMAL)
[2024-01-23 19:40] LABS: CLARITY,URINE CLOUDY (CLEAR)
[2024-01-23 19:46] LABS: AMORPHOUS SEDIMENT,UR Few /LPF; BACTERIA,URINE Many /HPF (None Seen); SQUAMOUS EPITHELIAL CELL,UR RARE Squamous (<= Few)
[2024-01-23] MEDS: levoFLOXacin 500 MG/100 ML 500 MG/100 ML BAG IV STA (20:12)
--- NOTE | 2024-01-23 20:42 | HISTORY & PHYSICAL EXAMINATION ---
Chief Complaint - Chief Complaint Chief Complaint: fall fver, History of Present Illness - Admitted From Admitted From:: ED - History of Present Illness HPI Comment/Other: This is a 73yo female with history of dementia lives at a halfway facility brought here to the ED with complaint of fall,no injury.pt is confused history obtain from daughter at bedside via zoom technology.EMS responded to call pt was found to be febrile of 101,tachycardic of 115,urinary urgency .As per ed was soft sepss received iv abx, imaging negative for bleed.we were called to evaluate for admission History - Past Medical History Cardiovascular: reports: Hypertension Neuro: reports: Dementia MRSA Hx?: No - Past Surgical History General: reports: Cholecystectomy - POLST Patient has POLST: No Meds/Allgy - Home Medications Home Medications: Ambulatory Orders Medication Instructions Recorded Confirmed Atenolol 50 mg PO BID 05/18/13 01/23/24 Lisinopril [Zestril] 20 mg PO DAILY #30 tablet 09/30/22 01/23/24 risperiDONE [RisperDAL] 1 mg PO QPM #30 tablet 09/30/22 01/23/24 Atorvastatin [Lipitor] 20 mg PO DAILY 01/23/24 01/23/24 Donepezil [Aricept] 5 mg PO DAILY PM 01/23/24 01/23/24 Mirtazapine 15 mg PO DAILY PM 01/23/24 01/23/24 amLODIPine [Norvasc] 2.5 mg PO DAILY 01/23/24 01/23/24 traZODone [Desyrel] 25 mg PO DAILY PM 01/23/24 01/23/24 - Allergies Allergies/Adverse Reactions: Allergies Allergy/AdvReac Type Severity Reaction Status Date / Time cefaclor [From Ceclor] Allergy Intermediate Itching Verified 01/23/24 18:54 cephradine [From Velosef] Allergy Intermediate Itching Verified 01/23/24 18:54 erythromycin base Allergy Intermediate Nausea Verified 01/23/24 18:54 [Erythromycin Base] naproxen [From Naprosyn] Allergy Intermediate Rash Verified 01/23/24 18:54 sulfamethoxazole Allergy Intermediate Rash Verified 01/23/24 18:54 [From Septra] trimethoprim [From Septra] Allergy Intermediate Rash Verified 01/23/24 18:54 erythromycin estolate * Allergy Mild Nausea Verified 01/23/24 18:54 [From Ilosone] Penicillins Allergy Mild Rash Verified 01/23/24 18:54 ibuprofen [From Motrin] AdvReac Intermediate Itching Verified 01/23/24 18:54 meperidine HCl * AdvReac Intermediate Headache Verified 01/23/24 18:54 [From Demerol] acetaminophen [From Tylox] AdvReac Mild Nausea Verified 01/23/24 18:54 oxycodone HCl * [From Tylox] AdvReac Mild Nausea Verified 01/23/24 18:54 bp Allergy Intermediate Edema Uncoded 01/23/24 18:54 Prior Level of Functionality: stable Exam - Vital Signs Vital Signs: Vital Signs x48h Temp Pulse Resp BP Pulse Ox 01/23/24 19:24 96 18 164/90 H 96 01/23/24 18:55 36.7 C 110 H 18 170/100 H 100 - Physical Exam General Appearance: positive: No acute distress (confused) Eyes Bilateral: positive: Normal inspection ENT: positive: ENT inspection nml Respiratory: positive: No respiratory distress Cardiovascular: positive: Tachycardia (na) Conclusion/Plan - Lab Results Fish Bones: 01/23/24 19:03 01/23/24 19:03 - Diagnostic Imaging Results Diagnostic Imaging Results: positive: Prelim report reviewed - EKG Results EKG Interpreted Independently: No Core Measures - Issues Hospital Issues and Management Plan: UTI htn dementia fall no injury hypertension will admit to medr under hospital service as inpatient iv ceftriaxone i gm daily pain control tylenon 650 mg po q6hrs prn pain iv fluids ns 100ml/hr resume home med regular diet Activity as tolerated heparin 500u sc q12hrs plan dw daughter answered all qyestions. - DVT/VTE - Prophylaxis VTE/DVT Device ordered at admit?: Yes
[2024-01-23 21:03] LABS: CORONAVIRUS 229E-RESP PCR NOT DETECTED; CORONAVIRUS HKU1-RESP PCR NOT DETECTED; CORONAVIRUS NL63-RESP PCR NOT DETECTED; CORONAVIRUS OC43-RESP PCR NOT DETECTED
[2024-01-23 21:04] LABS: B. PARAPERTUSSIS- RESP PCR PAN NOT DETECTED; B. PERTUSSIS- RESP PCR PANEL NOT DETECTED; C. PNEUMONIAE- RESP PCR PANEL NOT DETECTED; HUMAN METAPNEUMOVIRUS NOT DETECTED; INFLUENZA A- RESP PCR PANEL NOT DETECTED; INFLUENZA B - RESP PCR PANEL NOT DETECTED; M. PNEUMONIAE- RESP PCR PANEL NOT DETECTED; PARAINFLUENZA VIRUS 1 NOT DETECTED; PARAINFLUENZA VIRUS 2 NOT DETECTED; PARAINFLUENZA VIRUS 3 NOT DETECTED; PARAINFLUENZA VIRUS 4 NOT DETECTED; RHINOVIRUS/ENTEROVIRUS NOT DETECTED; RSV- RESP PCR PANEL NOT DETECTED; SARS-CoV-2 -RESP PCR PANEL DETECTED
[2024-01-23] MEDS: POTASSIUM CHLOR 10 MEQ/100 ML 10 MEQ/100 ML BAG IV STA (21:56)
[2024-01-23] MEDS: SODIUM CHLORIDE 0.9% 1,000 ML IV SCH (21:58)
[2024-01-23] MEDS: HEPARIN 5,000 UNIT/ML VIAL SUBQ SCH (21:58)
[2024-01-23] MEDS: cefTRIAXone 1 GM in SODIUM CHLORIDE 0.9% MINIBAG 100 ML IV ONE (21:59)
[2024-01-23] MEDS: SODIUM CHLORIDE FLUSH 0.9% 10 ML SYRINGE IVP PRN (22:02)
[2024-01-24] MEDS: ACETAMINOPHEN 325 MG TABLET PO PRN (01:16)
[2024-01-24] MEDS: oxyCODONE 5 MG TABLET PO PRN (01:17)
[2024-01-24] MEDS: POTASSIUM CHLORIDE 20 MEQ TABLET PO ONE (01:17)
[2024-01-24] MEDS: SODIUM CHLORIDE FLUSH 0.9% 10 ML SYRINGE IVP SCH (01:18)
[2024-01-24] MEDS: cefTRIAXone 1 GM VIAL IVP STA (01:38)
--- NOTE | 2024-01-24 07:30 | PROVIDER PROGRESS NOTE ---
Assessment/Plan - Problem List (1) UTI (urinary tract infection) Qualifiers: Hematuria presence: without hematuria Assessment/Plan: Her urinalysis was abnormal. Urine culture and blood cultures were drawn and are pending. She spiked a fever at midnight. WBC was 4.6, and Lactic Acid was normal at admission. Today WBC is 4.7 Plan: She received Levaquin in the ER because of multiple allergies but then the admitting Telemedicine provider ordered iv Ceftriaxone which was given and she had no allergic reactions. Therefore, I will continue with Ceftriaxone 1 g IV daily to treat her UTI Await culture results to tailor antibiotics Continue gentle IV fluids Will start Pyridium for her dysuria (2) COVID-19 Assessment/Plan: She is COVID-positive. This is probably adding to her fever She is not hypoxic, and has no productive cough No chest x-ray was performed at admission Plan: Continue with respiratory and infectious isolation precautions Obtain chest x-ray She does not qualify for Remdesivir or Decadron as she is not hypoxic Cont iv fluids due to the fever (3) Fall at long term Assessment/Plan: I reviewed the ambulance run sheet. They describe that she "fell flat on her face". ER provider's note said that the fall was "without injury". No imaging of any kind was done. She is complaining of pain everywhere to her RN Plan: Will obtain facial bones x-rays Will obtain head CT Administer pain meds as needed She will likely need PT and OT elevations. Will order those after we rule out fractures. (4) Hypertension, uncontrolled Assessment/Plan: BP is poorly controlled since admission running 170/100 - 150/90. Having "pain everywhere" after her fall is probably adding to the elevated BP. Plan: I will resume her usual BP meds: Amlodipine 2.5 mg daily, and Lisinopril 20 mg daily Give meds to control her pain (5) Dementia Assessment/Plan: Plan: I have resumed her Aricept at hs, Trazodone at hs, and Mirtazapine at hs - Current Meds Current Meds: Current Medications Generic Name Dose Route Start Last Admin Trade Name Freq PRN Reason Stop Dose Admin Acetaminophen 650 mg 01/24/24 00:41 01/24/24 01:16 Acetaminophen 325 Mg Tablet PO 650 mg Q4HR PRN Administration Pain or Fever > 38C (100.4F) Sodium Chloride 1,000 mls @ 100 mls/hr 01/23/24 21:00 01/23/24 21:58 Normal Saline 0.9% IV 100 mls/hr .Q10H RENETTA Administration Oxycodone HCl 5 mg 01/24/24 00:41 01/24/24 01:17 Oxycodone 5 Mg Tablet PO 5 mg Q6H PRN Administration Severe Pain (Level 7-10) Sodium Chloride 10 ml 01/23/24 20:28 01/23/24 22:02 Sodium Chloride Flush 0.9% 10 Ml Syringe IVP 10 ml PRN PRN Administration NEEDED PER PROVIDER ORDERS Sodium Chloride 10 ml 01/24/24 01:00 01/24/24 01:18 Sodium Chloride Flush 0.9% 10 Ml Syringe IVP 10 ml 0100,[id number],1700 RENETTA Administration - Lab Result Fish Bone Diagrams: 01/24/24 07:40 01/24/24 07:40 - Diagnostic Imaging Results Diagnostic Imaging Results: Final report reviewed - Additional Planning My Orders: My Active Orders 01/24/24 BMP - BASIC METABOLIC PANEL [CHEM] Urgent CBC - COMP BLD CT W/AUTO DIFF [HEME] Urgent 01/24/24 07:26 Facial Bones 1-2V [XR] Stat Head WO [CT] Stat 01/24/24 08:00 Donepezil [Aricept] 5 mg PO DAILY PM Mirtazapine [Remeron] 15 mg PO DAILY PM traZODone [Desyrel] 25 mg PO DAILY PM 01/24/24 09:00 Atenolol [Atenolol] 50 mg PO BID Enoxaparin [Lovenox] 40 mg SUBQ DAILY amLODIPine [Norvasc] 2.5 mg PO DAILY lisinopriL [Zestril] 20 mg PO DAILY 01/24/24 21:00 Atorvastatin [Lipitor] 20 mg PO QPM cefTRIAXone [Rocephin] 1 gm Sodium Chloride 0.9% Minibag [Normal Saline 0.9% Minibag] 100 ml IV QPM risperiDONE [RisperDAL] 1 mg PO QPM 01/25/24 05:00 BMP - BASIC METABOLIC PANEL [CHEM] DAILYLAB CALCIUM [CHEM] DAILYLAB CBC - COMP BLD CT W/AUTO DIFF [HEME] DAILYLAB MAGNESIUM [CHEM] DAILYLAB PHOSPHORUS [CHEM] DAILYLAB 01/26/24 05:00 BMP - BASIC METABOLIC PANEL [CHEM] DAILYLAB CBC - COMP BLD CT W/AUTO DIFF [HEME] DAILYLAB 01/27/24 05:00 BMP - BASIC METABOLIC PANEL [CHEM] DAILYLAB CBC - COMP BLD CT W/AUTO DIFF [HEME] DAILYLAB Subjective - Subjective Patient Reports: Cough (Dry cough noted), Pain (c/O "pain everywhere", RN needed to call night Telemedicine provider and got orders for Tylenol and oxycodone prn), Other (Complains of burning with urination) Objective Vital Signs: Vital Signs - 24 hr 01/23/24 01/23/24 01/23/24 18:55 19:24 20:47 Temperature 36.7 C Heart Rate 110 H 96 96 Heart Rate [ Radial] Respiratory 18 18 18 Rate Blood Pressure 170/100 H 164/90 H 168/88 H Blood Pressure [Right Radial artery] O2 Saturation 100 96 97 01/23/24 01/23/24 01/24/24 21:40 23:55 01:06 Temperature 38.8 C H 38.1 C H Heart Rate Heart Rate [ 103 H 99 102 H Radial] Respiratory 20 18 14 Rate Blood Pressure Blood Pressure 165/97 H 158/95 H 154/91 H [Right Radial artery] O2 Saturation 92 97 97 01/24/24 01/24/24 01/24/24 01:45 01:46 06:27 Temperature 37.3 C 37.3 C 37.0 C Heart Rate Heart Rate [ Radial] Respiratory Rate Blood Pressure Blood Pressure [Right Radial artery] O2 Saturation Oxygen O2 Source Room air I&O (Last 24 Hrs): Intake and Output Totals x24h 01/22/24 01/23/24 01/24/24 23:59 23:59 23:59 Intake Total 1450 Output Total 600 400 Balance 850 -400 General: Alert, No acute distress HEENT: EOMI, Mucous membr. moist/pink Neck: Supple Neuro: Alert, Disoriented, Non Focal Cardiovascular: Regular rate Respiratory: No respiratory distress, Breath sounds nml (fine wheeze) Abdomen: Normal bowel sounds, Soft Extremities: Other (Trace edema) - Results Results: Laboratory Results WBC 4.6 x10^3/uL (4.8-10.8) L 01/23/24 19:03 RBC 4.00 10^6/uL (4.20-5.40) L 01/23/24 19:03 Hgb 11.2 g/dL (12.0-16.0) L 01/23/24 19:03 Hct 34.8 % (37.0-47.0) L 01/23/24 19:03 MCV 87.0 fL (81.0-99.0) 01/23/24 19:03 MCH 28.0 pg (27.0-31.0) 01/23/24 19:03 MCHC 32.2 g/dL (32.0-36.0) 01/23/24 19:03 RDW 12.8 % (12.0-15.0) 01/23/24 19:03 Plt Count 118 10^3/uL (130-450) L 01/23/24 19:03 MPV 8.9 fL (7.9-10.8) 01/23/24 19:03 Neut # (Auto) 3.4 10^3/uL (1.5-6.6) 01/23/24 19:03 Lymph # (Auto) 0.6 10^3/uL (1.5-3.5) L 01/23/24 19:03 [place] # (Auto) 0.6 10^3/uL (0.0-1.0) 01/23/24 19:03 Eos # (Auto) 0.0 10^3/uL (0.0-0.7) 01/23/24 19:03 Baso # (Auto) 0.0 10^3/uL (0.0-0.1) 01/23/24 19:03 Absolute Nucleated RBC 0.00 x10^3/uL 01/23/24 19:03 Nucleated RBC % 0.0 /100WBC 01/23/24 19:03 Sodium 132 mmol/L (135-145) L 01/23/24 19:03 Potassium 3.3 mmol/L (3.5-4.5) L 01/23/24 19:03 Chloride 97 mmol/L (101-111) L 01/23/24 19:03 Carbon Dioxide 26 mmol/L (21-32) 01/23/24 19:03 Anion Gap 9.0 (6-13) 01/23/24 19:03 BUN 20 mg/dL (6-20) 01/23/24 19:03 Creatinine 1.0 mg/dL (0.6-1.3) 01/23/24 19:03 Estimated GFR (MDRD) 55 (>89) L 01/23/24 19:03 Glucose 106 mg/dL (74-104) H 01/23/24 19:03 Lactic Acid 0.9 mmol/L (0.5-2.2) 01/23/24 19:03 Calcium 9.1 mg/dL (8.5-10.3) 01/23/24 19:03 Total Bilirubin 0.9 mg/dL (0.2-1.0) 01/23/24 19:03 AST 17 IU/L (10-42) 01/23/24 19:03 ALT 9 IU/L (10-60) L 01/23/24 19:03 Alkaline Phosphatase 68 IU/L (42-121) 01/23/24 19:03 Total Protein 7.2 g/dL (6.4-8.9) 01/23/24 19:03 Albumin 4.5 g/dL (3.2-5.5) 01/23/24 19:03 Globulin 2.7 g/dL (2.1-4.2) 01/23/24 19:03 Albumin/Globulin Ratio 1.7 (1.0-2.2) 01/23/24 19:03 Lipase 38 U/L (11-82) 01/23/24 19:03 Urine Color YELLOW 01/23/24: Urine Clarity CLOUDY (CLEAR) 01/23/24: Urine pH 8.5 PH (5.0-7.5) H 01/23/24: Ur Specific [place] 1.015 (1.002-1.030) 01/23/24: Urine Protein TRACE mg/dL (NEGATIVE) 01/23/24: Urine Glucose (UA) NEGATIVE mg/dL (NEGATIVE) 01/23/24: Urine Ketones NEGATIVE mg/dL (NEGATIVE) 01/23/24: Urine Occult Blood MODERATE (NEGATIVE) H 01/23/24: Urine Nitrite POSITIVE (NEGATIVE) H 01/23/24: Urine Bilirubin NEGATIVE (NEGATIVE) 02/25/24 19:27 Urine Urobilinogen 0.2 (NORMAL) E.U./dL (NORMAL) 01/23/24 19:27 Ur Leukocyte Esterase TRACE (NEGATIVE) H 01/23/24 19:27 Urine RBC 6-10 /HPF (0-5) H 01/23/24 19:27 Urine WBC 4-5 /HPF (0-5) 01/23/24 19:27 Ur Squamous Epith Cells RARE Squamous (<= Few) 01/23/24 19:27 Amorphous Sediment Few /LPF 01/23/24 19:27 Urine Bacteria Many /HPF (None Seen) H 01/23/24 19:27 Ur Microscopic Review INDICATED 01/23/24 19:27 Urine Culture Comments INDICATED 01/23/24 19:27 Nasal Adenovirus (PCR) NOT DETECTED 01/23/24 20:07 Nasal B. parapertussis DNA (PCR) NOT DETECTED 01/23/24 20:07 Nasal Coronavir 229E PCR NOT DETECTED 01/23/24 20:07 Nasal Coronavir HKU1 PCR NOT DETECTED 01/23/24 20:07 Nasal Coronavir NL63 PCR NOT DETECTED 01/23/24 20:07 Nasal Coronavir OC43 PCR NOT DETECTED 01/23/24 20:07 Nasal Enterovir/Rhinovir PCR NOT DETECTED 01/23/24 20:07 Nasal Influenza B PCR NOT DETECTED 01/23/24 20:07 Nasal Influenza A PCR NOT DETECTED 01/23/24 20:07 Nasal Parainfluen 1 PCR NOT DETECTED 01/23/24 20:07 Nasal Parainfluen 2 PCR NOT DETECTED 01/23/24 20:07 Nasal Parainfluen 3 PCR NOT DETECTED 01/23/24 20:07 Nasal Parainfluen 4 PCR NOT DETECTED 01/23/24 20:07 Nasal RSV (PCR) NOT DETECTED 01/23/24 20:07 Nasal B.pertussis DNA PCR NOT DETECTED 01/23/24 20:07 Nasal C.pneumoniae (PCR) NOT DETECTED 01/23/24 20:07 [place] Human Metapneumo PCR NOT DETECTED 01/23/24 20:07 Nasal M.pneumoniae (PCR) NOT DETECTED 01/23/24 20:07 Nasal SARS-CoV-2 (PCR) DETECTED A 01/23/24 20:07 - Procedures Procedures: Procedures ING HERNIA REP-GRAFT NOS (05/18/13) UNIL FEMOR HRN REP-GRFT (05/18/13)
[2024-01-24 07:46] LABS: BASOPHILS % (AUTO) 0.2 %; HCT - HEMATOCRIT 35.6 % (37.0-47.0); HGB - HEMOGLOBIN 11.7 g/dL (12.0-16.0); LYMPHOCYTES # (AUTO) 0.9 10^3/uL (1.5-3.5); LYMPHOCYTES % (AUTO) 18.8 %; MEAN CORPUSCULAR HEMOGLOBIN 28.6 pg (27.0-31.0); MEAN CORPUSCULAR HGB CONC 32.9 g/dL (32.0-36.0); MONOCYTES # (AUTO) 0.6 10^3/uL (0.0-1.0); MONOCYTES % (AUTO) 11.8 %; NEUTROPHILS # (AUTO) 3.2 10^3/uL (1.5-6.6); PLT - PLATELET COUNT 109 10^3/uL (130-450); RED BLOOD COUNT 4.09 10^6/uL (4.20-5.40); WHITE BLOOD COUNT 4.7 x10^3/uL (4.8-10.8)
[2024-01-24 07:59] LABS: CALCIUM 8.7 mg/dL (8.5-10.3); CREATININE 0.9 mg/dL (0.6-1.3); POTASSIUM 3.3 mmol/L (3.5-4.5)
[2024-01-24] MEDS ORDERED: NON FORMULARY MED (Atenolol [Atenolol] 50 MG Tablet) PO SCH (09:00)
[2024-01-24] MEDS: PHENAZOPYRIDINE 100 MG TABLET PO SCH (09:13)
[2024-01-24] MEDS: amLODIPine 5 MG TABLET PO SCH (09:13)
[2024-01-24] MEDS: lisinopriL 20 MG TABLET PO SCH (09:14)
[2024-01-24] MEDS: ENOXAPARIN 40 MG/0.4 ML SYRINGE SUBQ SCH (09:15)
[2024-01-24] MEDS: LIDOCAINE PATCH 4% TOP SCH (09:15)
--- NOTE | 2024-01-24 09:17 | XRAY Report ---
PROCEDURE: Chest 1V INDICATIONS: COVID (+) TECHNIQUE: One view of the chest was acquired. COMPARISON: None. FINDINGS: Surgical changes and devices: None. Lungs and pleura: No pleural effusions or pneumothorax. Lungs are clear. Mediastinum: Mediastinal contours appear normal. Top normal heart size. Bones and chest wall: No suspicious bony lesions. Overlying soft tissues appear unremarkable. IMPRESSION: Top normal heart size. No acute pulmonary process. Reviewed by: Mikey Renteria MD on 01/24/2024 9:15 AM [facility] Approved by: Mikey Renteria MD on 01/24/2024 9:15 AM [facility] Station ID: [id number]
--- NOTE | 2024-01-24 10:42 | CT Report ---
PROCEDURE: Head WO INDICATIONS: fall onto face on 01/23/24 TECHNIQUE: Noncontrast 4.5 mm thick angled axial sections acquired from the foramen magnum to the vertex. For r adiation dose reduction, the following was used: automated exposure control, adjustment of mA and/or kV according to patient size. COMPARISON: 09/30/2022, CT maxillofacial areas from today.. FINDINGS: Image quality: Excellent. CSF spaces: Basal cisterns are patent. No extra-axial fluid collections. Ventricles are normal in size and shape. Brain: No midline shift. No intracranial masses or hemorrhage. Gilbert-white matter interface is norm al. Intracranial carotid calcifications. Age-related volume loss and mild, age-appropriate small ves xiao ischemic change. Skull and face: Calvarium and visualized facial bones are intact, without suspicious lesions. Sinuses: Minimal left maxillary sinus air-fluid level. IMPRESSION: No acute intracranial pathology. Minimal left maxillary sinus disease. Reviewed by: Mikey Renteria MD on 01/24/2024 10:40 AM PST Approved by: Mikey Renteria MD on 01/24/2024 10:40 AM PST Station ID: [id number]
--- NOTE | 2024-01-24 10:44 | CT Report ---
PROCEDURE: Maxillofacial WO INDICATIONS: FALL ONTO FACE ON 01/23/24 TECHNIQUE: Noncontrast 1.5 mm thick axial images acquired from the mandible through the frontal sinuses, with co taty and sagittal reformatting. For radiation dose reduction, the following was used: automated ex posure control, adjustment of mA and/or kV according to patient size. COMPARISON: None. FINDINGS: Image quality: Excellent. Bones and teeth: Orbital hannah are intact. Sinus hannah show no fracture or deformity. Bilateral TMJ degenerative change. Nasal bones and septum are intact. Visualized portions of the mandible demons trate no fractures or subluxation. Zygomatic arches are intact. Pterygoid plates are intact. Visua lized portions of the skull base and auditory canals are intact. Sinuses: Tiny leftair maxillary sinus-fluid level. Minimal patchy bilateral anterior ethmoid opacific ation. Mastoid air cells are aerated. Soft tissues: No edema, masses, or fluid collections. No enlarged lymph nodes. No soft tissue lace rations or debris. Vascular: Visualized vascular structures appear normal in the absence of contrast. Bony vascular fo ramina and canals are intact. IMPRESSION: 1. No displaced facial bone fracture or mandibular fracture. 2. Bilateral TMJ degenerative arthritis. 3. Mild sinus disease. Reviewed by: Mikey Renteria MD on 01/24/2024 10:43 AM [facility] Approved by: Mikey Renteria MD on 01/24/2024 10:43 AM [facility] Station ID: [id number]
--- NOTE | 2024-01-24 12:08 | PHARMACY PROGRESS NOTE ---
- Best Possible Medication History Admit Date and Time: 01/23/242027 Processed by: Pharmacy Medications reviewed in ED?: Yes (By ED RN) Medication History completed: Yes Secondary Source(s): Physician records, Insurance records As the person ultimately responsible for medication therapy, providers are able to order a medication from an existing home medication list in [facility] via the "Reconcile Routine" prior to Confirmation of that medication by administrative support associate. Such practice is discouraged except when the physician, in their clinical judgment, deems that a medical need exists for a medication without regard to previous use.
[2024-01-24] MEDS: cefTRIAXone 1 GM in SODIUM CHLORIDE 0.9% MINIBAG 100 ML IV SCH (21:30)
[2024-01-24] MEDS: risperiDONE 1 MG TABLET PO SCH (21:30)
[2024-01-24] MEDS: MIRTAZAPINE 15 MG TABLET PO SCH (21:30)
[2024-01-24] MEDS: traZODone 50 MG TABLET PO SCH (21:30)
[2024-01-24] MEDS: ATORVASTATIN 10 MG TABLET PO SCH (21:30)
[2024-01-24] MEDS: DONEPEZIL 5 MG TABLET PO SCH (21:31)
[2024-01-25 05:46] LABS: BASOPHILS % (AUTO) 0.3 %; HCT - HEMATOCRIT 37.3 % (37.0-47.0); HGB - HEMOGLOBIN 12.4 g/dL (12.0-16.0); LYMPHOCYTES # (AUTO) 1.1 10^3/uL (1.5-3.5); MEAN CORPUSCULAR HEMOGLOBIN 28.7 pg (27.0-31.0); MEAN CORPUSCULAR HGB CONC 33.2 g/dL (32.0-36.0); MEAN CORPUSCULAR VOLUME 86.3 fL (81.0-99.0); MEAN PLATELET VOLUME 9.4 fL (7.9-10.8); MONOCYTES # (AUTO) 0.4 10^3/uL (0.0-1.0); MONOCYTES % (AUTO) 11.6 %; NEUTROPHILS # (AUTO) 2.3 10^3/uL (1.5-6.6); NEUTROPHILS % (AUTO) 59.8 %; PLT - PLATELET COUNT 131 10^3/uL (130-450); RED BLOOD COUNT 4.32 10^6/uL (4.20-5.40); RED CELL DISTRIBUTION WIDTH 12.8 % (12.0-15.0); WHITE BLOOD COUNT 3.8 x10^3/uL (4.8-10.8)
[2024-01-25 06:00] LABS: CALCIUM 8.7 mg/dL (8.5-10.3); CREATININE 0.9 mg/dL (0.6-1.3); MAGNESIUM 1.5 mg/dL (1.7-2.3); POTASSIUM 3.1 mmol/L (3.5-4.5)
--- NOTE | 2024-01-25 08:30 | PROVIDER PROGRESS NOTE ---
Subjective - Prog Note Date Prog Note Date: 01/25/24 Prog Note Time: 09:00 - Subjective Pt reports feeling: Improved Subjective: Pt feeling improved from yesterday, alert and oriented to person and place but not time or events, unknown if that is baseline for her at the moment. Denies any pain, chills, SOB, N/V/D. Able to eat breakfast this morning. Objective - Vital Signs/Intake & Output Vital Signs: Vital Signs x48h Temp Pulse Resp BP Pulse Ox 01/25/24 05:29 37.1 C 96 16 134/80 H 98 Intake & Output: Intake & Output 01/22/24 01/23/24 01/24/24 01/25/24 23:59 23:59 23:59 23:59 Intake Total 1450 3143.333 996.667 Output Total 600 2000 Balance 850 1143.333 996.667 - Objective General Appearance: positive: No acute distress Eyes Bilateral: positive: EOMI ENT: positive: ENT inspection nml Neck: positive: Nml inspection, No JVD Respiratory: positive: Chest non-tender, No respiratory distress, Breath sounds nml Cardiovascular: positive: Regular rate & rhythm, No murmur Abdomen: positive: Non-tender. negative: Guarding, Rebound Skin: positive: Color nml, Warm, Dry Extremities: positive: Pedal edema (1+), Other (Dry skin, vericose veins present.) Neurologic/Psychiatric: positive: Other (Pt is oriented to person and place but not time or event.) - Lab Results Fish Bones: 01/25/24 05:43 01/25/24 05:43 Other Labs: Lab Results x24hrs 01/25/24 01/25/24 Range/Units 05:43 05:43 WBC 3.8 L (4.8-10.8) x10^3/uL RBC 4.32 (4.20-5.40) 10^6/uL Hgb 12.4 (12.0-16.0) g/dL Hct 37.3 (37.0-47.0) % MCV 86.3 (81.0-99.0) fL MCH 28.7 (27.0-31.0) pg MCHC 33.2 (32.0-36.0) g/dL RDW 12.8 (12.0-15.0) % Plt Count 131 (130-450) 10^3/uL MPV 9.4 (7.9-10.8) fL Neut # (Auto) 2.3 (1.5-6.6) 10^3/uL Lymph # (Auto) 1.1 L (1.5-3.5) 10^3/uL [place] # (Auto) 0.4 (0.0-1.0) 10^3/uL Eos # (Auto) 0.0 (0.0-0.7) 10^3/uL Baso # (Auto) 0.0 (0.0-0.1) 10^3/uL Absolute Nucleated RBC 0.00 x10^3/uL Nucleated RBC % 0.0 /100WBC Sodium 137 (135-145) mmol/L Potassium 3.1 L (3.5-4.5) mmol/L Chloride 102 (101-111) mmol/L Carbon Dioxide 26 (21-32) mmol/L Anion Gap 9.0 (6-13) BUN 15 (6-20) mg/dL Creatinine 0.9 (0.6-1.3) mg/dL Estimated GFR (MDRD) 62 L (>89) Glucose 88 (74-104) mg/dL Calcium 8.7 (8.5-10.3) mg/dL Phosphorus 4.0 (2.5-5.0) mg/dL Magnesium 1.5 L (1.7-2.3) mg/dL Assessment/Plan - Problem List (1) UTI (urinary tract infection) Impression: UTI (urinary tract infection) Assessment/Plan: Her urinalysis was abnormal. Fever resolved currently. HR in upper 90's. Urine culture grew E.Coli and unknown proteus species. Sensitivity is pending. Blood cultures show no growth after 1 day. WBC was 4.6, and Lactic Acid was normal at admission. Today WBC is 4.7 Plan: -She received Levaquin in the ER because of multiple allergies but then the admitting Telemedicine provider ordered IV Ceftriaxone which was given and she had no allergic reactions. Will continue with Ceftriaxone 1 g IV daily to treat her UTI -Await culture results to tailor antibiotics -Continue gentle IV fluids -Will start Pyridium for her dysuria COVID-19 Assessment/Plan: She is COVID-positive. She is not hypoxic, and has no productive cough or SOB. Denies any chills or muscle aches. Nml CXR, no acute changes. no signs of PNA. Per social media developer, pt is to be sent back to assisted living, no restrictions with pt testing positive for COVID at this point. Plan: -Continue with respiratory and infectious isolation precautions. -She does not qualify for Remdesivir or Decadron as she is not hypoxic -Cont IV fluids due to the fever Fall at half-way Assessment/Plan: I reviewed the ambulance run sheet. They describe that she "fell flat on her face". ER provider's note said that the fall was "without injury". No imaging of any kind was done. On admission pt was complaining of pain everywhere to her RN. Imaging results: XR facial bones, no fx's or dislocations, head CT showed no injuries as well, no acute pathology, minimal left maxillary sinus disease, CXR showed no fx's or pnuemothorax. Per RN pt is one person assist, recommend PT and OT eval. Plan: -Administer pain meds as needed -Order PT and OT elevations. Hypertension, uncontrolled Assessment/Plan: BP is poorly controlled since admission running 170/100 - 150/90. Having "pain everywhere" after her fall is probably adding to the elevated BP. Plan: -Discontinue amlodipine, cont lisinopril, will give cardizem to help control her pressure. -Give meds to control her pain. Dementia Assessment/Plan: Plan: I have resumed her Aricept at hs, Trazodone at hs, and Mirtazapine at hs Hypokalemia Assessment/Plan: Plan: K was 3.1. Will administer oral potassium, 40 meq. Hypomagnesemia. Assessment/Plan: Plan: Mag was 1.5. Will order supplement. Qualifiers: Hematuria presence: without hematuria
[2024-01-25] MEDS: BENZOCAINE/MENTHOL LOZENGE MM PRN (12:29)
[2024-01-25] MEDS: POTASSIUM CHLORIDE 20 MEQ/15 ML UDC PO SCH (12:29)
[2024-01-25] MEDS: MAGNESIUM OXIDE 400 MG TABLET PO SCH (18:45)
[2024-01-26 07:25] LABS: MAGNESIUM 1.6 mg/dL (1.7-2.3); POTASSIUM 3.2 mmol/L (3.5-4.5)
--- NOTE | 2024-01-26 09:26 | PROVIDER PROGRESS NOTE ---
Subjective - Prog Note Date Prog Note Date: 01/26/24 Prog Note Time: 10:00 - Subjective Pt reports feeling: No change (Pt states she had some trouble sleeping last night because she feels like she is in a strange place. Reports some chills. Denies any pain, SOB, N/V/D.) Objective - Vital Signs/Intake & Output Vital Signs: Vital Signs x48h Temp Pulse Resp BP BP Pulse Ox 01/26/24 09:00 37.1 C 97 16 142/77 H 96 01/26/24 08:11 142/77 H 01/26/24 05:57 37 C 80 16 129/75 97 Intake & Output: Intake & Output 01/23/24 01/24/24 01/25/24 01/26/24 23:59 23:59 23:59 23:59 Intake Total 1450 3143.333 3223.334 755 Output Total 600 2000 1370 500 Balance 850 2915.823 8637.334 255 - Objective General Appearance: positive: No acute distress, Alert Eyes Bilateral: positive: PERRL, EOMI ENT: positive: Pharynx nml Neck: positive: Nml inspection, No JVD, Trachea midline Respiratory: positive: Chest non-tender, No respiratory distress, Breath sounds nml Cardiovascular: positive: Regular rate & rhythm, No murmur Abdomen: positive: Non-tender, No distention. negative: Guarding, Rebound Skin: positive: Color nml, No rash, Warm, Dry Extremities: positive: Pedal edema (1+), Other (Dry scaly skin to LE's, vericose veins present.) Neurologic/Psychiatric: positive: Other (Aware or person and place but not time or event. Repeats questions.) - Lab Results Fish Bones: 01/25/24 05:43 01/26/24 05:57 Other Labs: Lab Results x24hrs 01/26/24 Range/Units 05:57 Potassium 3.2 L (3.5-4.5) mmol/L Magnesium 1.6 L (1.7-2.3) mg/dL Sepsis Event Note (H) - Evaluation Current Stage of Sepsis: Resolved Assessment/Plan - Problem List (1) UTI (urinary tract infection) Impression: Assessment/Plan: UA in ER showing UTI. Fever has resolved currently. HR in upper 90's. Urine culture grew E.Coli and unknown proteus mirabillis. Showed sensitivity to ceftriaxone which she is currently on. Blood cultures show no growth after 2 day. WBC trend 4.6, 4.7, 3.8. Normal lactic Acid at admission. Plan: -She received Levaquin in the ER because of multiple allergies but then the admitting Telemedicine provider ordered IV Ceftriaxone which was given and she had no allergic reactions. Will continue with Ceftriaxone 1 g IV daily to treat her UTI. -Continue gentle IV fluids -Cont Pyridium for her dysuria COVID-19 Assessment/Plan: Tested COVID-positive on 01-23-24. O2 sat has remained in upper 90's on RA. Today 97%. Does not appear hypoxic, afebrile at 37.1C, and has no productive cough or SOB. Denies any chills or muscle aches. Nml CXR 01-24-24, no acute changes, nml heart size, no signs of PNA. Per protective services social worker, pt is to be sent back to assisted living, no restrictions with pt testing positive for COVID at this point. Plan: -Continue with respiratory and infectious isolation precautions. -She does not qualify for Remdesivir or Decadron as she is not hypoxic -Cont IV fluids. Fall at senior living Assessment/Plan: ER provider's note said that the fall was "without injury". No imaging of any kind was done. Ambulance sheet reports pt "fell flat on her face". On admission pt was complaining of pain everywhere to her RN. Imaging done here. Imaging results: XR facial bones, no fx's or dislocations, head CT showed no injuries as well, no acute pathology, minimal left maxillary sinus disease, CXR showed no fx's or pnuemothorax. Per RN pt is one person assist, recommend PT and OT eval. Plan: -Administer pain meds as needed -Order PT and OT elevations. Hypertension, uncontrolled Assessment/Plan: BP was poorly controlled since admission running 170/100 - 150/90. Today 142/72. Pain has improved since admission, this was likely contributing to her hypertension. Plan: -Discontinue amlodipine, cont lisinopril, will give cardizem to help control her pressure. -Give meds to control her pain. Dementia Assessment/Plan: Plan: Resume Aricept at hs, Trazodone at hs, and Mirtazapine at hs Hypokalemia Assessment/Plan: Plan: K was 3.1, today 3.2. Will cont monitoring. Ordered oral potassium, 40 meq. Hypomagnesemia. Assessment/Plan: Plan: Mag was 1.5, today 1.6. Will cont monitoring. Ordered magnesium 400mg daily. Qualifiers: Hematuria presence: without hematuria
[2024-01-26] MEDS: POTASSIUM CHLORIDE 20 MEQ/15 ML UDC PO SCH (11:45)
--- NOTE | 2024-01-26 16:34 | DISCHARGE SUMMARY ---
Discharge Summary Admit Date: 01/23/24 Discharge Date: 01/27/24 Discharging Provider: Dr. Deng Mullen Code Status: Attempt Resuscitation Condition at Discharge: Good Discharge Disposition: [facility] DC/Xfer - DIAGNOSES Admission Diagnoses: Urinary tract infection UA in ER showing UTI. Was febrile but resolved now. HR remained in the upper 90's throughout stay, HR now 72. Vitals otherwise stable. Urine culture grew E.Coli and proteus mirabillis and showed sensitivity to ceftriaxone which she is currently on. Blood cultures show no growth. WBC trend 4.6, 4.7, 3.8. Normal lactic Acid at admission. Discharge: -Ceftriaxone 1 g IV daily to treat her UTI. -IV fluids -Pyridium for her dysuria COVID-19 Tested COVID-positive on 01-23-24. O2 sat has remained in upper 90's on RA. No respiratory distress, afebrile, denied any sx, no productive cough or SOB, chills or muscle aches. Pt did not require Remdesivir or Decadron during stay. Nml CXR 01-24-24, no acute changes, nml heart size, no signs of PNA. Per outreach and education social worker, pt is to be sent back to assisted living, no restrictions with pt testing positive for COVID at this point. Recommend continuing with respiratory and infectious isolation precautions at home. Fall at group home GLF at group home, Pt "fell flat on her face". Imaging results: XR facial bones, no fx's or dislocations, head CT showed no acute injuries, minimal left maxillary sinus disease, CXR showed no fx's or pnuemothorax. Pt evaluated by PT and OT during stay. Stable to be discharged to SNF. Hypertension, uncontrolled RESOLVED. Pt was having poorly controlled BP during stay, running 170/100 - 150/90. Given Cardizem during stay. Today 132/77. Cont BP meds at home. Dementia Resume Aricept at hs, Trazodone at hs, and Mirtazapine at hs Hypokalemia RESOLVED. K levels 3.1, 3.2, 3.8. Treated with oral potassium, 40 meq. Hypomagnesemia. Mag levels 1.5, 1.6, 1.6. Treated with magnesium 400mg daily. - HPI History of Present Illness: 73 YOF with a Hx of dementia who lives in a group home is brought in by EMS s/p ground level fall which EMS states she "fell onto her face" but did not suffer obvious injuries. On scene she was noted to have a fever of 101F and was also tachycardic at 115 BMP which is what ultimately brought her in. She was also confused but it is uncertain if this is her baseline mental status. - HOSPITAL COURSE Hospital Course: Pt found to have UTI in ED meeting criteria for sepsis with tachycardia and fever was admitted and started on Levaquin due to allergies but switched to ceftriaxone 1gm daily upon admission. Fever resolved with Tylenol 650mg, h ydrated with IV fluids. Culture of urine grew E.coli and proteus microbillis which both showed sensitivity to ceftriaxone. Blood cultures done showed no growth. Pt tested (+) for COVID in ED, did not have URI symptoms prior to arrival or during admission aside from fever and slight sore throat which resolved. CXR showed no acute pathology. Pt was on air droplet precautions. Pt endured a GLF at her nursing facility, EMS reports her "falling to her face", initial ER evaluation was benign, no imaging was done, upon admission pt complained of pain throughout, XR of facial bones showed no acute injuries, head CT was also benign. PT and OT evaluated pt during stay and pt is now stable. Abnormal labs: Pt was hypokalemic, K was 3.1 and 3.2, treated w/ 40meq potassium chloride. Now 3.8. She was also hypomagnesemia, mg 1.5, 1.6, 1.6 treated w/ 400mg daily. - ALLERGIES Allergies/Adverse Reactions: Allergies Allergy/AdvReac Type Severity Reaction Status Date / Time cefaclor [From Ceclor] Allergy Intermediate Itching Verified 01/23/24 18:54 cephradine [From Velosef] Allergy Intermediate Itching Verified 01/23/24 18:54 erythromycin base Allergy Intermediate Nausea Verified 01/23/24 18:54 [Erythromycin Base] naproxen [From Naprosyn] Allergy Intermediate Rash Verified 01/23/24 18:54 sulfamethoxazole Allergy Intermediate Rash Verified 01/23/24 18:54 [From Septra] trimethoprim [From Septra] Allergy Intermediate Rash Verified 01/23/24 18:54 erythromycin estolate * Allergy Mild Nausea Verified 01/23/24 18:54 [From Ilosone] Penicillins Allergy Mild Rash Verified 01/23/24 18:54 ibuprofen [From Motrin] AdvReac Intermediate Itching Verified 01/23/24 18:54 meperidine HCl * AdvReac Intermediate Headache Verified 01/23/24 18:54 [From Demerol] acetaminophen [From Tylox] AdvReac Mild Nausea Verified 01/23/24 18:54 oxycodone HCl * [From Tylox] AdvReac Mild Nausea Verified 01/23/24 18:54 bp Allergy Intermediate Edema Uncoded 01/23/24 18:54 - MEDICATIONS Home Medications: Ambulatory Orders Medication Instructions Recorded Confirmed Lisinopril [Zestril] 20 mg PO DAILY #30 tablet 09/30/22 01/23/24 risperiDONE [RisperDAL] 1 mg PO QPM #30 tablet 09/30/22 01/23/24 Atorvastatin [Lipitor] 20 mg PO DAILY 01/23/24 01/23/24 Donepezil [Aricept] 5 mg PO QPM 01/23/24 01/24/24 Mirtazapine 15 mg PO QPM 01/23/24 01/24/24 amLODIPine [Norvasc] 2.5 mg PO DAILY 01/23/24 01/23/24 traZODone [Desyrel] 25 mg PO QPM 01/24/24 01/24/24 - PHYSICAL EXAM AT DISCHARGE General Appearance: positive: No acute distress Eyes Bilateral: positive: EOMI Neck: positive: Nml inspection, Trachea midline. negative: No JVD Respiratory: positive: Chest non-tender, Breath sounds nml. negative: No respiratory distress Cardiovascular: positive: Regular rate & rhythm, No murmur Peripheral Pulses: positive: 2+ Abdomen: positive: Non-tender. negative: No distention, Guarding, Rebound Skin: positive: Color nml, Warm, Dry. negative: Cyanosis Extremities: positive: Pedal edema (1+). negative: Non-tender Neurologic/Psychiatric: positive: Other (Oriented to person and place but not time or event. Appears to be baseline at this point. ) - LABS Result Diagrams: 01/25/24 05:43 01/27/24 05:46 - SEPSIS Current Stage of Sepsis: Resolved - TIME SPENT Time Spent in Discharge (Minutes): 30
[2024-01-27 06:10] LABS: CALCIUM 8.8 mg/dL (8.5-10.3); CREATININE 0.8 mg/dL (0.6-1.3); MAGNESIUM 1.6 mg/dL (1.7-2.3); PHOSPHORUS 2.8 mg/dL (2.5-5.0); POTASSIUM 3.8 mmol/L (3.5-4.5)
[2024-01-27] MEDS: LIDOCAINE PATCH 5% TOP SCH (08:58)
--- NOTE | 2024-01-27 11:06 | PROVIDER PROGRESS NOTE ---
Subjective - Prog Note Date Prog Note Date: 01/27/24 Prog Note Time: 10:00 - Subjective Pt reports feeling: No change Subjective: Pt reports being able to sleep last night. Denies any pain or SOB. No N/V/D. Eating breakfast in the morning. Objective - Vital Signs/Intake & Output Vital Signs: Vital Signs x48h Temp Pulse Resp BP BP Pulse Ox 01/27/24 09:04 168/106 H 01/27/24 08:37 36.6 C 94 18 168/92 H 98 01/27/24 04:43 36.6 C 77 16 132/77 H 98 Intake & Output: Intake & Output 01/24/24 01/25/24 01/26/24 01/27/24 23:59 23:59 23:59 23:59 Intake Total 3143.333 3223.334 2695 1891.667 Output Total 1999 1370 1550 600 Balance 1734.616 1751.334 1145 1291.667 - Objective General Appearance: positive: No acute distress, Alert (To person and place but not time or event.) Eyes Bilateral: positive: PERRL, EOMI ENT: positive: ENT inspection nml, Pharynx nml Neck: positive: Nml inspection, No JVD Respiratory: positive: Chest non-tender, No respiratory distress, Breath sounds nml Cardiovascular: positive: Regular rate & rhythm, No murmur Abdomen: positive: Non-tender, No distention. negative: Guarding, Rebound Skin: positive: Color nml, Warm, Dry, Cyanosis Extremities: positive: Pedal edema (1+) Neurologic/Psychiatric: positive: Other (Oriented to person and place but not time or event. Repeats questions frequently.) - Lab Results Fish Bones: 01/25/24 05:43 01/27/24 05:46 Other Labs: Lab Results x24hrs 01/27/24 01/26/24 Range/Units 05:46 20:00 Sodium 138 (135-145) mmol/L Potassium 3.8 (3.5-4.5) mmol/L Chloride 105 (101-111) mmol/L Carbon Dioxide 27 (21-32) mmol/L Anion Gap 6.0 (6-13) BUN 10 (6-20) mg/dL Creatinine 0.8 (0.6-1.3) mg/dL Estimated GFR (MDRD) 71 L (>89) Glucose 97 (74-104) mg/dL Calcium 8.8 (8.5-10.3) mg/dL Phosphorus 2.8 (2.5-5.0) mg/dL Magnesium 1.6 L 1.7 (1.7-2.3) mg/dL Sepsis Event Note (H) - Evaluation Current Stage of Sepsis: Resolved Assessment/Plan - Problem List (1) UTI (urinary tract infection) Impression: Urinary tract infection UA in ER showing UTI. Was febrile but resolved now. HR has lowered from upper 90's to mid 70's now. Vitals otherwise stable. Urine culture grew E.Coli and proteus mirabillis and showed sensitivity to ceftriaxone which she is being barry ated with. Blood cultures show no growth. WBC trend 4.6, 4.7, 3.8. Normal lactic Acid at admission. Pt is medically cleared to be discharged but is remaining hospitalized due to SNF stating pt cant be transferred until 02-02-24 because of her COVID Dx. Plan: -Ceftriaxone 1 g IV daily to treat her UTI. -IV fluids -Pyridium for her dysuria. COVID-19 Tested COVID-positive on 01-23-24. O2 sat has remained in upper 90's on RA. No respiratory distress, sx have resolved. Pt did not require Remdesivir or Decadron during stay. Nml CXR 01-24-24, no acute changes, nml heart size, no signs of PNA. Per manager social work, pt wont be discharged to SNF until 02-02-24 due to COVID. Will continue with respiratory and infectious isolation precautions. Fall at alf GLF at alf, Pt "fell flat on her face". Imaging results: XR facial bones w/ no fx's or dislocations. Head CT showed no acute injuries, minimal left maxillary sinus disease. CXR showed no fx's, pneumo, PNA. Pt evaluated by PT and OT during stay. Stable for transfer to SNF once COVID precautions are met. Hypertension, uncontrolled RESOLVED. Pt was having poorly controlled BP during stay, running 170/100 - 150/90. Given Cardizem during stay. BP now stable, cont BP meds at home. Dementia Resume Aricept at hs, Trazodone at hs, and Mirtazapine at hs Hypokalemia RESOLVED. K levels 3.1, 3.2, 3.8. Treated with oral potassium, 40 meq. Hypomagnesemia. Mag levels 1.5, 1.6, 1.6. Treated with magnesium 400mg daily. Qualifiers: Hematuria presence: without hematuria
[2024-01-27] MEDS: MULTIVITAMIN W/MINERALS TABLET PO SCH (14:27)
[2024-01-27] MEDS: MAGNESIUM OXIDE 400 MG TABLET PO SCH (20:56)
--- NOTE | 2024-01-28 21:52 | PROVIDER PROGRESS NOTE ---
Assessment/Plan - Problem List (1) UTI (urinary tract infection) Qualifiers: Hematuria presence: without hematuria Assessment/Plan: UA in ER showing UTI. Was febrile but resolved now. HR has lowered from upper 90's to mid 70's now. Vitals otherwise stable. Urine culture grew E.Coli and proteus mirabillis and showed sensitivity to ceftriaxone which she is being treated with. Blood cultures show no growth. WBC trend 4.6, 4.7, 3.8. Normal lactic Acid at admission. Pt is medically cleared to be discharged but is remaining hospitalized due to SNF stating pt cant be transferred until 02-02-24 because of her COVID Dx. Plan: Couse of antibiotics completed COVID-19 Tested COVID-positive on 01-23-24. O2 sat has remained in upper 90's on RA. No respiratory distress, sx have resolved. Pt did not require Remdesivir or Decadron during stay. Nml CXR 01-24-24, no acute changes, nml heart size, no signs of PNA. Per social worker delinquency prevention, pt wont be discharged to SNF until 02-02-24 due to COVID. Will continue with respiratory and infectious isolation precautions. Fall at [facility] at [facility], Pt "fell flat on her face". Imaging results: XR facial bones w/ no fx's or dislocations. Head CT showed no acute injuries, minimal left maxillary sinus disease. CXR showed no fx's, pneumo, PNA. Pt evaluated by PT and OT during stay. Stable for transfer to SNF once COVID precautions are met. Hypertension, uncontrolled RESOLVED. Pt was having poorly controlled BP during stay, running 170/100 - 150/90. Given Cardizem during stay. BP now stable, cont BP meds at home. Dementia Resume Aricept at hs, Trazodone at hs, and Mirtazapine at hs Hypokalemia RESOLVED. Hypomagnesemia. Continue magnesium oxide. Qualifiers: Hematuria presence: without hematuria - Current Meds Current Meds: Current Medications Generic Name Dose Route Start Last Admin Trade Name Freq PRN Reason Stop Dose Admin Acetaminophen 650 mg 01/24/24 00:41 01/24/24 01:16 Acetaminophen 325 Mg Tablet PO 650 mg Q4HR PRN Administration Pain or Fever > 38C (100.4F) Atorvastatin Calcium 20 mg 01/24/24 21:00 01/28/24 19:59 Atorvastatin 10 Mg Tablet PO 20 mg QPM RENETTA Administration Diltiazem HCl 60 mg 01/24/24 19:00 01/28/24 19:59 Diltiazem 60 Mg Tablet PO 60 mg 0800,1300,1900 RENETTA Administration Donepezil HCl 5 mg 01/24/24 21:00 01/28/24 19:59 Donepezil 5 Mg Tablet PO 5 mg QPM RENETTA Administration Enoxaparin Sodium 40 mg 01/24/24 09:00 01/28/24 08:22 Enoxaparin 40 Mg/0.4 Ml Syringe SUBQ 40 mg DAILY RENETTA Administration Ceftriaxone Sodium 1 gm/ 100 mls @ 200 mls/hr 01/24/24 21:00 01/28/24 20:51 Sodium Chloride IV Infused QPM RENETTA Infusion Lidocaine 1 patch 01/27/24 09:00 01/28/24 08:35 Lidocaine Patch 5% TOP 1 patch DAILY RENETTA Administration Lisinopril 20 mg 01/24/24 09:00 01/28/24 08:22 Lisinopril 20 Mg Tablet PO 20 mg DAILY RENETTA Administration Magnesium Oxide 400 mg 01/25/24 18:39 01/28/24 08:22 Magnesium Oxide 400 Mg Tablet PO 400 mg DAILYWM RENETTA Administration Mirtazapine 15 mg 01/24/24 21:00 01/28/24 19:59 Mirtazapine 15 Mg Tablet PO 15 mg QPM RENETTA Administration Multivitamins/Minerals 1 tab 01/27/24 12:00 01/28/24 08:22 Multivitamin W/Minerals Tablet PO 1 tab DAILYWM RENETTA Administration Oxycodone HCl 5 mg 01/24/24 00:41 01/24/24 01:17 Oxycodone 5 Mg Tablet PO 5 mg Q6H PRN Administration Severe Pain (Level 7-10) Phenazopyridine HCl 100 mg 01/24/24 08:00 01/28/24 19:59 Phenazopyridine 100 Mg Tablet PO 100 mg TID RENETTA Administration Potassium Chloride 40 meq 01/25/24 12:00 01/28/24 08:22 Potassium Chloride 20 Meq/15 Ml Udc PO 40 meq DAILYWM RENETTA Administration Risperidone 1 mg 01/24/24 21:00 01/28/24 19:59 Risperidone 1 Mg Tablet PO 1 mg QPM RENETTA Administration Sodium Chloride 10 ml 02/25/24 20:28 01/23/24 22:02 Sodium Chloride Flush 0.9% 10 Ml Syringe IVP 10 ml PRN PRN Administration NEEDED PER PROVIDER ORDERS Sodium Chloride 10 ml 01/24/24 01:00 01/28/24 16:07 Sodium Chloride Flush 0.9% 10 Ml Syringe IVP 10 ml 0100,0900,1700 RENETTA Administration Throat Lozenges 1 lozenge 01/25/24 11:39 01/25/24 12:29 Benzocaine/Menthol Lozenge MM 1 lozenge Q2HR PRN Administration Mouth Sore Pain Trazodone HCl 25 mg 01/24/24 21:00 01/28/24 19:59 Trazodone 50 Mg Tablet PO 25 mg QPM RENETTA Administration - Lab Result Fish Bone Diagrams: 01/25/24 05:43 01/27/24 05:46 Subjective - Subjective Patient Reports: Other (Alert. No complaints today.) Objective Vital Signs: Vital Signs - 24 hr 01/28/24 01/28/24 01/28/24 00:21 04:51 08:00 Temperature 36.7 C 36.8 C 36.8 C Heart Rate [ 82 79 76 Brachial] Respiratory 20 16 18 Rate Blood Pressure Blood Pressure 117/79 146/81 H [Left Brachial artery] Blood Pressure 108/62 [Right Radial artery] O2 Saturation 97 96 97 01/28/24 01/28/24 01/28/24 08:36 12:27 12:41 Temperature 36.6 C Heart Rate [ 106 H Brachial] Respiratory 18 Rate Blood Pressure 144/77 H 114/78 Blood Pressure 114/78 [Left Brachial artery] Blood Pressure [Right Radial artery] O2 Saturation 97 01/28/24 15:46 Temperature 36.8 C Heart Rate [ 75 Brachial] Respiratory 18 Rate Blood Pressure Blood Pressure [Left Brachial artery] Blood Pressure 139/74 H [Right Radial artery] O2 Saturation 95 Oxygen O2 Source Room air I&O (Last 24 Hrs): Intake and Output Totals x24h 01/26/24 01/27/24 01/28/24 23:59 23:59 23:59 Intake Total 2695 2811.667 870 Output Total 1550 1050 50 Balance 1145 1761.667 820 General: Alert, No acute distress Neck: No JVD, No thyromegaly Neuro: Alert Cardiovascular: Regular rate, Normal S1, Normal S2 Respiratory: Other (Good air exchange in all lung zendejas no wheezing no crackles.) Abdomen: Normal bowel sounds Extremities: No cyanosis Skin: No rashes - Results Results: Laboratory Results WBC 3.8 x10^3/uL (4.8-10.8) L 01/25/24 05:43 RBC 4.32 10^6/uL (4.20-5.40) 01/25/24 05:43 Hgb 12.4 g/dL (12.0-16.0) 01/25/24 05:43 Hct 37.3 % (37.0-47.0) 01/25/24 05:43 MCV 86.3 fL (81.0-99.0) 01/25/24 05:43 MCH 28.7 pg (27.0-31.0) 01/25/24 05:43 MCHC 33.2 g/dL (32.0-36.0) 01/25/24 05:43 RDW 12.8 % (12.0-15.0) 01/25/24 05:43 Plt Count 131 10^3/uL (130-450) 01/25/24 05:43 MPV 9.4 fL (7.9-10.8) 01/25/24 05:43 Neut # (Auto) 2.3 10^3/uL (1.5-6.6) 01/25/24 05:43 Lymph # (Auto) 1.1 10^3/uL (1.5-3.5) L 01/25/24 05:43 [place] # (Auto) 0.4 10^3/uL (0.0-1.0) 01/25/24 05:43 Eos # (Auto) 0.0 10^3/uL (0.0-0.7) 01/25/24 05:43 Baso # (Auto) 0.0 10^3/uL (0.0-0.1) 01/25/24 05:43 Absolute Nucleated RBC 0.00 x10^3/uL 01/25/24 05:43 Nucleated RBC % 0.0 /100WBC 01/25/24 05:43 Sodium 138 mmol/L (135-145) 01/27/24 05:46 Potassium 3.8 mmol/L (3.5-4.5) 01/27/24 05:46 Chloride 105 mmol/L (101-111) 01/27/24 05:46 Carbon Dioxide 27 mmol/L (21-32) 01/27/24 05:46 Anion Gap 6.0 (6-13) 01/27/24 05:46 BUN 10 mg/dL (6-20) 01/27/24 05:46 Creatinine 0.8 mg/dL (0.6-1.3) 01/27/24 05:46 Estimated GFR (MDRD) 71 (>89) L 01/27/24 05:46 Glucose 97 mg/dL (74-104) 01/27/24 05:46 Lactic Acid 0.9 mmol/L (0.5-2.2) 01/23/24 19:03 Calcium 8.8 mg/dL (8.5-10.3) 01/27/24 05:46 Phosphorus 2.8 mg/dL (2.5-5.0) 01/27/24 05:46 Magnesium 1.6 mg/dL (1.7-2.3) L 01/27/24 05:46 Total Bilirubin 0.9 mg/dL (0.2-1.0) 01/23/24 19:03 AST 17 IU/L (10-42) 01/23/24 19:03 ALT 9 IU/L (10-60) L 01/23/24 19:03 Alkaline Phosphatase 68 IU/L (42-121) 01/23/24 19:03 Total Protein 7.2 g/dL (6.4-8.9) 01/23/24 19:03 Albumin 4.5 g/dL (3.2-5.5) 01/23/24 19:03 Globulin 2.7 g/dL (2.1-4.2) 01/23/24 19:03 Albumin/Globulin Ratio 1.7 (1.0-2.2) 01/23/24 19:03 Lipase 38 U/L (11-82) 01/23/24 19:03 Urine Color YELLOW 01/23/24 19:27 Urine Clarity CLOUDY (CLEAR) 01/23/24 19:27 Urine pH 8.5 PH (5.0-7.5) H 01/23/24 19:27 Ur Specific [place] 1.015 (1.002-1.030) 01/23/24 19: Urine Protein TRACE mg/dL (NEGATIVE) 01/23/24 19: Urine Glucose (UA) NEGATIVE mg/dL (NEGATIVE) 01/23/24 19: Urine Ketones NEGATIVE mg/dL (NEGATIVE) 01/23/24 19: Urine Occult Blood MODERATE (NEGATIVE) H 01/23/24 19: Urine Nitrite POSITIVE (NEGATIVE) H 01/23/24 19: Urine Bilirubin NEGATIVE (NEGATIVE) 01/23/24 19: Urine Urobilinogen 0.2 (NORMAL) E.U./dL (NORMAL) 01/23/24 19: Ur Leukocyte Esterase TRACE (NEGATIVE) H 01/23/24 19: Urine RBC 6-10 /HPF (0-5) H 01/23/24 19: Urine WBC 4-5 /HPF (0-5) 01/23/24 19:27 Ur Squamous Epith Cells RARE Squamous (<= Few) 01/23/24 19: Amorphous Sediment Few /LPF 01/23/24 19:27 Urine Bacteria Many /HPF (None Seen) H 01/23/24 19:27 Ur Microscopic Review INDICATED 01/23/24 19:27 Urine Culture Comments INDICATED 01/23/24 19: Nasal Adenovirus (PCR) NOT DETECTED 01/23/24 20:07 Nasal B. parapertussis DNA (PCR) NOT DETECTED 01/23/24 20:07 Nasal Coronavir 229E PCR NOT DETECTED 01/23/24 20:07 Nasal Coronavir HKU1 PCR NOT DETECTED 01/23/24 20:07 Nasal Coronavir NL63 PCR NOT DETECTED 01/23/24 20:07 Nasal Coronavir OC43 PCR NOT DETECTED 01/23/24 20:07 Nasal Enterovir/Rhinovir PCR NOT DETECTED 01/23/24 20:07 Nasal Influenza B PCR NOT DETECTED 01/23/24 20:07 Nasal Influenza A PCR NOT DETECTED 01/23/24 20:07 Nasal Parainfluen 1 PCR NOT DETECTED 01/23/24 20:07 Nasal Parainfluen 2 PCR NOT DETECTED 01/23/24 20:07 Nasal Parainfluen 3 PCR NOT DETECTED 01/23/24 20:07 Nasal Parainfluen 4 PCR NOT DETECTED 01/23/24 20:07 Nasal RSV (PCR) NOT DETECTED 01/23/24 20:07 Nasal B.pertussis DNA PCR NOT DETECTED 01/23/24 20:07 Nasal C.pneumoniae (PCR) NOT DETECTED 01/23/24 20:07 [place] Human Metapneumo PCR NOT DETECTED 01/23/24 20:07 Nasal M.pneumoniae (PCR) NOT DETECTED 01/23/24 20:07 Nasal SARS-CoV-2 (PCR) DETECTED A 01/23/24 20:07 - Procedures Procedures: Procedures ING HERNIA REP-GRAFT NOS (05/18/13) UNIL FEMOR HRN REP-GRFT (05/18/13) Sepsis Event Note (H) - Evaluation Current Stage of Sepsis: Resolved
--- NOTE | 2024-01-29 10:53 | PROVIDER PROGRESS NOTE ---
Assessment/Plan - Problem List (1) UTI (urinary tract infection) Qualifiers: Hematuria presence: without hematuria Assessment/Plan: UA in ER showing UTI. Was febrile but resolved now. HR has lowered from upper 90's to mid 70's now. Vitals otherwise stable. Urine culture grew E.Coli and proteus mirabillis and showed sensitivity to ceftriaxone which she is being treated with. Blood cultures show no growth. WBC trend 4.6, 4.7, 3.8. Normal lactic Acid at admission. Pt is medically cleared to be discharged but is remaining hospitalized due to SNF stating pt cant be transferred until 02-02-24 because of her COVID Dx. Plan: Course of antibiotics completed COVID-19 Tested COVID-positive on 01-23-24. O2 sat has remained in upper 90's on RA. No re spiratory distress, sx have resolved. Pt did not require Remdesivir or Decadron during stay. Nml CXR 01-24-24, no acute changes, nml heart size, no signs of PNA. Per professor of social work, pt wont be discharged to SNF until 02-02-24 due to COVID. Will continue with respiratory and infectious isolation precautions. [facility], Pt "fell flat on her face". Imaging results: XR facial bones w/ no fx's or dislocations. Head CT showed no acute injuries, minimal left maxillary sinus disease. CXR showed no fx's, pneumo, PNA. Pt evaluated by PT and OT during stay. Stable for transfer to SNF once COVID precautions are met. Hypertension, uncontrolled RESOLVED. Pt was having poorly controlled BP during stay, running 170/100 - 150/90. Given Cardizem during stay. BP now stable, cont BP meds at home. Dementia Resume Aricept at hs, Trazodone at hs, and Mirtazapine at hs Hypokalemia RESOLVED. Hypomagnesemia. Continue magnesium oxide. Qualifiers: Hematuria presence: without hematuria - Current Meds Current Meds: Current Medications Generic Name Dose Route Start Last Admin Trade Name Freq PRN Reason Stop Dose Admin Acetaminophen 650 mg 01/24/24 00:41 01/24/24 01:16 Acetaminophen 325 Mg Tablet PO 650 mg Q4HR PRN Administration Pain or Fever > 38C (100.4F) Atorvastatin Calcium 20 mg 01/24/24 21:00 01/28/24 19:59 Atorvastatin 10 Mg Tablet PO 20 mg QPM RENETTA Administration Diltiazem HCl 60 mg 01/24/24 19:00 01/29/24 08:20 Diltiazem 60 Mg Tablet PO 60 mg 0800,1300,1900 RENETTA Administration Donepezil HCl 5 mg 01/24/24 21:00 01/28/24 19:59 Donepezil 5 Mg Tablet PO 5 mg QPM RENETTA Administration Enoxaparin Sodium 40 mg 01/24/24 09:00 01/29/24 08:20 Enoxaparin 40 Mg/0.4 Ml Syringe SUBQ 40 mg DAILY RENETTA Administration Lidocaine 1 patch 01/27/24 09:00 01/29/24 09:16 Lidocaine Patch 5% TOP 1 patch DAILY RENETTA Administration Lisinopril 20 mg 01/24/24 09:00 01/29/24 08:20 Lisinopril 20 Mg Tablet PO 20 mg DAILY RENETTA Administration Magnesium Oxide 400 mg 01/25/24 18:39 01/29/24 08:20 Magnesium Oxide 400 Mg Tablet PO 400 mg DAILYWM RENETTA Administration Mirtazapine 15 mg 01/24/24 21:00 01/28/24 19:59 Mirtazapine 15 Mg Tablet PO 15 mg QPM RENETTA Administration Multivitamins/Minerals 1 tab 01/27/24 12:00 01/29/24 08:20 Multivitamin W/Minerals Tablet PO 1 tab DAILYWM RENETTA Administration Oxycodone HCl 5 mg 01/24/24 00:41 01/24/24 01:17 Oxycodone 5 Mg Tablet PO 5 mg Q6H PRN Administration Severe Pain (Level 7-10) Phenazopyridine HCl 100 mg 01/24/24 08:00 01/29/24 05:44 Phenazopyridine 100 Mg Tablet PO 100 mg TID RENETTA Administration Potassium Chloride 40 meq 01/25/24 12:00 01/29/24 08:20 Potassium Chloride 20 Meq/15 Ml Udc PO 40 meq DAILYWM RENETTA Administration Risperidone 1 mg 01/24/24 21:00 01/28/24 19:59 Risperidone 1 Mg Tablet PO 1 mg QPM RENETTA Administration Sodium Chloride 10 ml 01/23/24 20:28 01/23/24 22:02 Sodium Chloride Flush 0.9% 10 Ml Syringe IVP 10 ml PRN PRN Administration NEEDED PER PROVIDER ORDERS Sodium Chloride 10 ml 01/24/24 01:00 01/29/24 08:21 Sodium Chloride Flush 0.9% 10 Ml Syringe IVP 10 ml 0100,0900,1700 RENETTA Administration Throat Lozenges 1 lozenge 01/25/24 11:39 01/25/24 12:29 Benzocaine/Menthol Lozenge MM 1 lozenge Q2HR PRN Administration Mouth Sore Pain Trazodone HCl 25 mg 01/24/24 21:00 01/28/24 19:59 Trazodone 50 Mg Tablet PO 25 mg QPM RENETTA Administration - Lab Result Fish Bone Diagrams: 01/25/24 05:43 01/27/24 05:46 Subjective - Subjective Patient Reports: Other (Alert. Patient denies any complaints at this time.) Objective Vital Signs: Vital Signs - 24 hr 01/28/24 01/28/24 01/28/24 12:27 12:41 15:46 Temperature 36.6 C 36.8 C Heart Rate [ 106 H 75 Brachial] Respiratory 18 18 Rate Blood Pressure 114/78 Blood Pressure 114/78 [Left Brachial artery] Blood Pressure 139/74 H [Right Radial artery] O2 Saturation 97 95 01/29/24 01/29/24 01/29/24 00:05 07:26 08:20 Temperature 36.3 C L 36.9 C Heart Rate [ 75 77 Brachial] Respiratory 16 18 Rate Blood Pressure 152/84 H Blood Pressure 125/78 [Left Brachial artery] Blood Pressure 152/84 H [Right Radial artery] O2 Saturation 95 99 Oxygen O2 Source Room air I&O (Last 24 Hrs): Intake and Output Totals x24h 01/27/24 01/28/24 01/29/24 23:59 23:59 23:59 Intake Total 2811.667 1120 120 Output Total 1050 50 Balance 4773.767 4939 120 General: Alert HEENT: Atraumatic Neck: Supple, No JVD Neuro: Alert Cardiovascular: Regular rate, Normal S1, Normal S2 Respiratory: Other (Good air exchange in all lung zendejas no wheezing no crackles.) Extremities: No cyanosis Skin: No rashes - Results Results: Laboratory Results WBC 3.8 x10^3/uL (4.8-10.8) L 01/25/24 05:43 RBC 4.32 10^6/uL (4.20-5.40) 01/25/24 05:43 Hgb 12.4 g/dL (12.0-16.0) 01/25/24 05:43 Hct 37.3 % (37.0-47.0) 01/25/24 05:43 MCV 86.3 fL (81.0-99.0) 01/25/24 05:43 MCH 28.7 pg (27.0-31.0) 01/25/24 05:43 MCHC 33.2 g/dL (32.0-36.0) 01/25/24 05:43 RDW 12.8 % (12.0-15.0) 01/25/24 05:43 Plt Count 131 10^3/uL (130-450) 01/25/24 05:43 MPV 9.4 fL (7.9-10.8) 01/25/24 05:43 Neut # (Auto) 2.3 10^3/uL (1.5-6.6) 01/25/24 05:43 Lymph # (Auto) 1.1 10^3/uL (1.5-3.5) L 01/25/24 05:43 [place] # (Auto) 0.4 10^3/uL (0.0-1.0) 01/25/24 05:43 Eos # (Auto) 0.0 10^3/uL (0.0-0.7) 01/25/24 05:43 Baso # (Auto) 0.0 10^3/uL (0.0-0.1) 01/25/24 05:43 Absolute Nucleated RBC 0.00 x10^3/uL 01/25/24 05:43 Nucleated RBC % 0.0 /100WBC 01/25/24 05:43 Sodium 138 mmol/L (135-145) 01/27/24 05:46 Potassium 3.8 mmol/L (3.5-4.5) 01/27/24 05:46 Chloride 105 mmol/L (101-111) 01/27/24 05:46 Carbon Dioxide 27 mmol/L (21-32) 01/27/24 05:46 Anion Gap 6.0 (6-13) 01/27/24 05:46 BUN 10 mg/dL (6-20) 01/27/24 05:46 Creatinine 0.8 mg/dL (0.6-1.3) 01/27/24 05:46 Estimated GFR (MDRD) 71 (>89) L 01/27/24 05:46 Glucose 97 mg/dL (74-104) 01/27/24 05:46 Lactic Acid 0.9 mmol/L (0.5-2.2) 01/23/24 19:03 Calcium 8.8 mg/dL (8.5-10.3) 01/27/24 05:46 Phosphorus 2.8 mg/dL (2.5-5.0) 01/27/24 05:46 Magnesium 1.6 mg/dL (1.7-2.3) L 01/27/24 05:46 Total Bilirubin 0.9 mg/dL (0.2-1.0) 01/23/24 19:03 AST 17 IU/L (10-42) 01/23/24 19:03 ALT 9 IU/L (10-60) L 01/23/24 19:03 Alkaline Phosphatase 68 IU/L (42-121) 01/23/24 19:03 Total Protein 7.2 g/dL (6.4-8.9) 01/23/24 19:03 Albumin 4.5 g/dL (3.2-5.5) 01/23/24 19:03 Globulin 2.7 g/dL (2.1-4.2) 01/23/24 19:03 Albumin/Globulin Ratio 1.7 (1.0-2.2) 01/23/24 19:03 Lipase 38 U/L (11-82) 01/23/24 19:03 Urine Color YELLOW 01/23/24 19:27 Urine Clarity CLOUDY (CLEAR) 01/23/24 19: Urine pH 8.5 PH (5.0-7.5) H 01/23/24 19: Ur Specific [place] 1.015 (1.002-1.030) 01/23/24 19:27 Urine Protein TRACE mg/dL (NEGATIVE) 01/23/24 19: Urine Glucose (UA) NEGATIVE mg/dL (NEGATIVE) 01/23/24 19: Urine Ketones NEGATIVE mg/dL (NEGATIVE) 01/23/24 19:27 Urine Occult Blood MODERATE (NEGATIVE) H 01/23/24 19:27 Urine Nitrite POSITIVE (NEGATIVE) H 01/23/24 19: Urine Bilirubin NEGATIVE (NEGATIVE) 01/23/24 19: Urine Urobilinogen 0.2 (NORMAL) E.U./dL (NORMAL) 01/23/24 19:27 Ur Leukocyte Esterase TRACE (NEGATIVE) H 01/23/24 19:27 Urine RBC 6-10 /HPF (0-5) H 01/23/24 19: Urine WBC 4-5 /HPF (0-5) 01/23/24 19:27 Ur Squamous Epith Cells RARE Squamous (<= Few) 01/23/24 19: Amorphous Sediment Few /LPF 01/23/24 19: Urine Bacteria Many /HPF (None Seen) H 01/23/24 19:27 Ur Microscopic Review INDICATED 01/23/24 19: Urine Culture Comments INDICATED 01/23/24 19: Nasal Adenovirus (PCR) NOT DETECTED 01/23/24 20:07 Nasal B. parapertussis DNA (PCR) NOT DETECTED 01/23/24 20:07 Nasal Coronavir 229E PCR NOT DETECTED 01/23/24 20:07 Nasal Coronavir HKU1 PCR NOT DETECTED 01/23/24 20:07 Nasal Coronavir NL63 PCR NOT DETECTED 01/23/24 20:07 Nasal Coronavir OC43 PCR NOT DETECTED 01/23/24 20:07 Nasal Enterovir/Rhinovir PCR NOT DETECTED 01/23/24 20:07 Nasal Influenza B PCR NOT DETECTED 01/23/24 20:07 Nasal Influenza A PCR NOT DETECTED 01/23/24 20:07 Nasal Parainfluen 1 PCR NOT DETECTED 01/23/24 20:07 Nasal Parainfluen 2 PCR NOT DETECTED 01/23/24 20:07 Nasal Parainfluen 3 PCR NOT DETECTED 01/23/24 20:07 Nasal Parainfluen 4 PCR NOT DETECTED 01/23/24 20:07 Nasal RSV (PCR) NOT DETECTED 01/23/24 20:07 Nasal B.pertussis DNA PCR NOT DETECTED 01/23/24 20:07 Nasal C.pneumoniae (PCR) NOT DETECTED 01/23/24 20:07 [place] Human Metapneumo PCR NOT DETECTED 01/23/24 20:07 Nasal M.pneumoniae (PCR) NOT DETECTED 01/23/24 20:07 Nasal SARS-CoV-2 (PCR) DETECTED A 01/23/24 20:07 - Procedures Procedures: Procedures ING HERNIA REP-GRAFT NOS (05/18/13) UNIL FEMOR HRN REP-GRFT (05/18/13) Sepsis Event Note (H) - Evaluation Current Stage of Sepsis: Resolved
--- NOTE | 2024-01-30 21:45 | PROVIDER PROGRESS NOTE ---
Assessment/Plan - Problem List (1) UTI (urinary tract infection) Qualifiers: Hematuria presence: without hematuria Assessment/Plan: Resolved. UA in ER showing UTI. Was febrile but resolved now. HR has lowered from upper 90's to mid 70's now. Vitals otherwise stable. Urine culture grew E.Coli and proteus mirabillis and showed sensitivity to ceftriaxone which she is being barry ated with. Blood cultures show no growth. WBC trend 4.6, 4.7, 3.8. Normal lactic Acid at admission. Pt is medically cleared to be discharged but is remaining hospitalized due to SNF stating pt cant be transferred until 02-02-24 because of her COVID Dx. Plan: Course of antibiotics completed COVID-19 Tested COVID-positive on 01-23-24. O2 sat has remained in upper 90's on RA. No respiratory distress, sx have resolved. Pt did not require Remdesivir or Decadron during stay. Nml CXR 01-24-24, no acute changes, nml heart size, no signs of PNA. Per social worker delinquency prevention, pt wont be discharged to SNF until 02-02-24 due to COVID. Will continue with respiratory and infectious isolation precautions. Fall at alf GLF at alf, Pt "fell flat on her face". Imaging results: XR facial bones w/ no fx's or dislocations. Head CT showed no acute injuries, minimal left maxillary sinus disease. CXR showed no fx's, pneumo, PNA. Pt evaluated by PT and OT during stay. Stable for transfer to SNF once COVID precautions are met. Hypertension, uncontrolled RESOLVED. Pt was having poorly controlled BP during stay, running 170/100 - 150/90. Given Cardizem during stay. BP now stable, cont BP meds at home. Dementia Resume Aricept at hs, Trazodone at hs, and Mirtazapine at hs Hypokalemia RESOLVED. Hypomagnesemia. Continue magnesium oxide. Qualifiers: Hematuria presence: without hematuria - Current Meds Current Meds: Current Medications Generic Name Dose Route Start Last Admin Trade Name Freq PRN Reason Stop Dose Admin Acetaminophen 650 mg 01/24/24 00:41 01/30/24 09:01 Acetaminophen 325 Mg Tablet PO 650 mg Q4HR PRN Administration Pain or Fever > 38C (100.4F) Atorvastatin Calcium 20 mg 01/24/24 21:00 01/30/24 20:49 Atorvastatin 10 Mg Tablet PO 20 mg QPM RENETTA Administration Diltiazem HCl 60 mg 01/24/24 19:00 01/30/24 19:50 Diltiazem 60 Mg Tablet PO 60 mg 0800,1300,1900 RENETTA Administration Donepezil HCl 5 mg 01/24/24 21:00 01/30/24 20:50 Donepezil 5 Mg Tablet PO 5 mg QPM RENETTA Administration Enoxaparin Sodium 40 mg 01/24/24 09:00 01/30/24 09:02 Enoxaparin 40 Mg/0.4 Ml Syringe SUBQ 40 mg DAILY RENETTA Administration Lidocaine 1 patch 01/27/24 09:00 01/30/24 09:02 Lidocaine Patch 5% TOP 1 patch DAILY RENETTA Administration Lisinopril 20 mg 01/24/24 09:00 01/30/24 09:01 Lisinopril 20 Mg Tablet PO 20 mg DAILY RENETTA Administration Magnesium Oxide 400 mg 01/25/24 18:39 01/30/24 09:01 Magnesium Oxide 400 Mg Tablet PO 400 mg DAILYWM RENETTA Administration Mirtazapine 15 mg 01/24/24 21:00 01/30/24 20:50 Mirtazapine 15 Mg Tablet PO 15 mg QPM RENETTA Administration Multivitamins/Minerals 1 tab 01/27/24 12:00 01/30/24 08:58 Multivitamin W/Minerals Tablet PO 1 tab DAILYWM RENETTA Administration Oxycodone HCl 5 mg 01/24/24 00:41 01/24/24 01:17 Oxycodone 5 Mg Tablet PO 5 mg Q6H PRN Administration Severe Pain (Level 7-10) Risperidone 1 mg 01/24/24 21:00 01/30/24 20:50 Risperidone 1 Mg Tablet PO 1 mg QPM RENETTA Administration Sodium Chloride 10 ml 01/23/24 20:28 01/23/24 22:02 Sodium Chloride Flush 0.9% 10 Ml Syringe IVP 10 ml PRN PRN Administration NEEDED PER PROVIDER ORDERS Sodium Chloride 10 ml 01/24/24 01:00 01/30/24 15:48 Sodium Chloride Flush 0.9% 10 Ml Syringe IVP 10 ml 0100,0900,1700 RENETTA Administration Throat Lozenges 1 lozenge 01/25/24 11:39 01/25/24 12:29 Benzocaine/Menthol Lozenge MM 1 lozenge Q2HR PRN Administration Mouth Sore Pain Trazodone HCl 25 mg 01/24/24 21:00 01/30/24 20:50 Trazodone 50 Mg Tablet PO 25 mg QPM RENETTA Administration - Lab Result Fish Bone Diagrams: 01/25/24 05:43 01/27/24 05:46 Subjective - Subjective Patient Reports: Other (Alert.Not oriented to person time place or situation.No other complaints today.) Objective Vital Signs: Vital Signs - 24 hr 01/29/24 01/30/24 01/30/24 23:35 08:00 08:59 Temperature 36.8 C 36.6 C Heart Rate [ 71 96 Brachial] Respiratory 18 18 Rate Blood Pressure 145/88 H Blood Pressure 144/89 H [Left Brachial artery] Blood Pressure 116/68 [Right Radial artery] O2 Saturation 95 97 01/30/24 01/30/24 16:00 19:50 Temperature 37 C Heart Rate [ 78 Brachial] Respiratory 16 Rate Blood Pressure 154/100 H Blood Pressure 125/72 [Left Brachial artery] Blood Pressure [Right Radial artery] O2 Saturation 98 Oxygen O2 Source Room air I&O (Last 24 Hrs): Intake and Output Totals x24h 01/28/24 01/29/24 01/30/24 23:59 23:59 23:59 Intake Total 1120 973 978 Output Total 50 50 1800 Balance 1070 923 -822 General: Alert, No acute distress HEENT: Atraumatic Neck: Supple, No JVD Lymphatic: no adenopathy, axilla node tender (R) Neuro: Alert, Non Focal Cardiovascular: Regular rate, Normal S1, Normal S2 Respiratory: Other (Good air exchange in all lung zendejas no wheezing no crackles.) Abdomen: Normal bowel sounds, Soft, No tenderness Extremities: No cyanosis, No edema Skin: No rashes - Results Results: Laboratory Results WBC 3.8 x10^3/uL (4.8-10.8) L 01/25/24 05:43 RBC 4.32 10^6/uL (4.20-5.40) 01/25/24 05:43 Hgb 12.4 g/dL (12.0-16.0) 01/25/24 05:43 Hct 37.3 % (37.0-47.0) 01/25/24 05:43 MCV 86.3 fL (81.0-99.0) 01/25/24 05:43 MCH 28.7 pg (27.0-31.0) 01/25/24 05:43 MCHC 33.2 g/dL (32.0-36.0) 01/25/24 05:43 RDW 12.8 % (12.0-15.0) 01/25/24 05:43 Plt Count 131 10^3/uL (130-450) 01/25/24 05:43 MPV 9.4 fL (7.9-10.8) 01/25/24 05:43 Neut # (Auto) 2.3 10^3/uL (1.5-6.6) 01/25/24 05:43 Lymph # (Auto) 1.1 10^3/uL (1.5-3.5) L 01/25/24 05:43 [place] # (Auto) 0.4 10^3/uL (0.0-1.0) 01/25/24 05:43 Eos # (Auto) 0.0 10^3/uL (0.0-0.7) 01/25/24 05:43 Baso # (Auto) 0.0 10^3/uL (0.0-0.1) 01/25/24 05:43 Absolute Nucleated RBC 0.00 x10^3/uL 01/25/24 05:43 Nucleated RBC % 0.0 /100WBC 01/25/24 05:43 Sodium 138 mmol/L (135-145) 01/27/24 05:46 Potassium 3.8 mmol/L (3.5-4.5) 01/27/24 05:46 Chloride 105 mmol/L (101-111) 01/27/24 05:46 Carbon Dioxide 27 mmol/L (21-32) 01/27/24 05:46 Anion Gap 6.0 (6-13) 01/27/24 05:46 BUN 10 mg/dL (6-20) 01/27/24 05:46 Creatinine 0.8 mg/dL (0.6-1.3) 01/27/24 05:46 Estimated GFR (MDRD) 71 (>89) L 01/27/24 05:46 Glucose 97 mg/dL (74-104) 01/27/24 05:46 Lactic Acid 0.9 mmol/L (0.5-2.2) 01/23/24 19:03 Calcium 8.8 mg/dL (8.5-10.3) 01/27/24 05:46 Phosphorus 2.8 mg/dL (2.5-5.0) 01/27/24 05:46 Magnesium 1.6 mg/dL (1.7-2.3) L 01/27/24 05:46 Total Bilirubin 0.9 mg/dL (0.2-1.0) 01/23/24 19:03 AST 17 IU/L (10-42) 01/23/24 19:03 ALT 9 IU/L (10-60) L 01/23/24 19:03 Alkaline Phosphatase 68 IU/L (42-121) 01/23/24 19:03 Total Protein 7.2 g/dL (6.4-8.9) 01/23/24 19:03 Albumin 4.5 g/dL (3.2-5.5) 01/23/24 19:03 Globulin 2.7 g/dL (2.1-4.2) 01/23/24 19:03 Albumin/Globulin Ratio 1.7 (1.0-2.2) 01/23/24 19:03 Lipase 38 U/L (11-82) 01/23/24 19:03 Urine Color YELLOW 01/23/24 19: Urine Clarity CLOUDY (CLEAR) 01/23/24 19: Urine pH 8.5 PH (5.0-7.5) H 01/23/24 19: Ur Specific [place] 1.015 (1.002-1.030) 01/23/24 19: Urine Protein TRACE mg/dL (NEGATIVE) 01/23/24 19: Urine Glucose (UA) NEGATIVE mg/dL (NEGATIVE) 01/23/24: Urine Ketones NEGATIVE mg/dL (NEGATIVE) 01/23/24 19: Urine Occult Blood MODERATE (NEGATIVE) H 01/23/24 19: Urine Nitrite POSITIVE (NEGATIVE) H 01/23/24: Urine Bilirubin NEGATIVE (NEGATIVE) 01/23/24 19: Urine Urobilinogen 0.2 (NORMAL) E.U./dL (NORMAL) 01/23/24 19:27 Ur Leukocyte Esterase TRACE (NEGATIVE) H 01/23/24 19:27 Urine RBC 6-10 /HPF (0-5) H 01/23/24 19:27 Urine WBC 4-5 /HPF (0-5) 01/23/24 19:27 Ur Squamous Epith Cells RARE Squamous (<= Few) 01/23/24 19:27 Amorphous Sediment Few /LPF 01/23/24 19:27 Urine Bacteria Many /HPF (None Seen) H 01/23/24 19:27 Ur Microscopic Review INDICATED 01/23/24 19:27 Urine Culture Comments INDICATED 01/23/24 19:27 Nasal Adenovirus (PCR) NOT DETECTED 01/23/24 20:07 Nasal B. parapertussis DNA (PCR) NOT DETECTED 01/23/24 20:07 Nasal Coronavir 229E PCR NOT DETECTED 01/23/24 20:07 Nasal Coronavir HKU1 PCR NOT DETECTED 01/23/24 20:07 Nasal Coronavir NL63 PCR NOT DETECTED 01/23/24 20:07 Nasal Coronavir OC43 PCR NOT DETECTED 01/23/24 20:07 Nasal Enterovir/Rhinovir PCR NOT DETECTED 01/23/24 20:07 Nasal Influenza B PCR NOT DETECTED 01/23/24 20:07 Nasal Influenza A PCR NOT DETECTED 01/23/24 20:07 Nasal Parainfluen 1 PCR NOT DETECTED 01/23/24 20:07 Nasal Parainfluen 2 PCR NOT DETECTED 01/23/24 20:07 Nasal Parainfluen 3 PCR NOT DETECTED 01/23/24 20:07 Nasal Parainfluen 4 PCR NOT DETECTED 01/23/24 20:07 Nasal RSV (PCR) NOT DETECTED 01/23/24 20:07 Nasal B.pertussis DNA PCR NOT DETECTED 01/23/24 20:07 Nasal C.pneumoniae (PCR) NOT DETECTED 01/23/24 20:07 [place] Human Metapneumo PCR NOT DETECTED 01/23/24 20:07 Nasal M.pneumoniae (PCR) NOT DETECTED 01/23/24 20:07 Nasal SARS-CoV-2 (PCR) DETECTED A 01/23/24 20:07 - Procedures Procedures: Procedures ING HERNIA REP-GRAFT NOS (05/18/13) UNIL FEMOR HRN REP-GRFT (05/18/13) Sepsis Event Note (H) - Evaluation Current Stage of Sepsis: Resolved
[2024-01-31 06:27] LABS: CALCIUM 9.8 mg/dL (8.5-10.3); PHOSPHORUS 4.8 mg/dL (2.5-5.0)
--- NOTE | 2024-01-31 11:20 | PROVIDER PROGRESS NOTE ---
Assessment/Plan - Problem List (1) UTI (urinary tract infection) Qualifiers: Hematuria presence: without hematuria Assessment/Plan: Resolved. UA in ER showing UTI. Was febrile but resolved now. HR has lowered from upper 90's to mid 70's now. Vitals otherwise stable. Urine culture grew E.Coli and proteus mirabillis and showed sensitivity to ceftriaxone which she is being tr eated with. Blood cultures show no growth. WBC trend 4.6, 4.7, 3.8. Normal lactic Acid at admission. Pt is medically cleared to be discharged but is remaining hospitalized due to SNF stating pt cant be transferred until 02-02-24 because of her COVID Dx. Plan: Course of antibiotics completed COVID-19 Tested COVID-positive on 01-23-24. O2 sat has remained in upper 90's on RA. No respiratory distress, sx have resolved. Pt did not require Remdesivir or Decadron during stay. Nml CXR 01-24-24, no acute changes, nml heart size, no signs of PNA. Per older adult social work specialist, pt wont be discharged to SNF until 02-02-24 due to COVID. Will continue with respiratory and infectious isolation precautions. [facility] Imaging results: XR facial bones w/ no fx's or dislocations. Head CT showed no acute injuries, minimal left maxillary sinus disease. CXR showed no fx's, pneumo, PNA. Pt evaluated by PT and OT during stay. Stable for transfer to SNF once COVID precautions are met. Hypertension, uncontrolled RESOLVED. Pt was having poorly controlled BP during stay, running 170/100 - 150/90. Given Cardizem during stay. BP now stable, cont BP meds at home. Dementia Resume Aricept at hs, Trazodone at hs, and Mirtazapine at hs Hypokalemia RESOLVED. Hypomagnesemia. Continue magnesium oxide. Qualifiers: Hematuria presence: without hematuria Disposition Patient is now medically cleared for return to nursing facility. - Current Meds Current Meds: Current Medications Generic Name Dose Route Start Last Admin Trade Name Freq PRN Reason Stop Dose Admin Acetaminophen 650 mg 01/24/24 00:41 01/30/24 09:01 Acetaminophen 325 Mg Tablet PO 650 mg Q4HR PRN Administration Pain or Fever > 38C (100.4F) Atorvastatin Calcium 20 mg 01/24/24 21:00 01/30/24 20:49 Atorvastatin 10 Mg Tablet PO 20 mg QPM RENETTA Administration Diltiazem HCl 60 mg 01/24/24 19:00 01/31/24 08:44 Diltiazem 60 Mg Tablet PO 60 mg 0800,1300,1900 RENETTA Administration Donepezil HCl 5 mg 01/24/24 21:00 01/30/24 20:50 Donepezil 5 Mg Tablet PO 5 mg QPM RENETTA Administration Enoxaparin Sodium 40 mg 01/24/24 09:00 01/31/24 08:45 Enoxaparin 40 Mg/0.4 Ml Syringe SUBQ 40 mg DAILY RENETTA Administration Lidocaine 1 patch 01/27/24 09:00 01/31/24 08:45 Lidocaine Patch 5% TOP 1 patch DAILY RENETTA Administration Lisinopril 20 mg 01/24/24 09:00 01/31/24 08:45 Lisinopril 20 Mg Tablet PO 20 mg DAILY RENETTA Administration Magnesium Oxide 400 mg 01/25/24 18:39 01/31/24 08:45 Magnesium Oxide 400 Mg Tablet PO 400 mg DAILYWM RENETTA Administration Mirtazapine 15 mg 01/24/24 21:00 01/30/24 20:50 Mirtazapine 15 Mg Tablet PO 15 mg QPM RENETTA Administration Multivitamins/Minerals 1 tab 01/27/24 12:00 01/31/24 08:45 Multivitamin W/Minerals Tablet PO 1 tab DAILYWM RENETTA Administration Risperidone 1 mg 01/24/24 21:00 01/30/24 20:50 Risperidone 1 Mg Tablet PO 1 mg QPM RENETTA Administration Sodium Chloride 10 ml 01/23/24 20:28 01/23/24 22:02 Sodium Chloride Flush 0.9% 10 Ml Syringe IVP 10 ml PRN PRN Administration NEEDED PER PROVIDER ORDERS Sodium Chloride 10 ml 01/24/24 01:00 01/31/24 08:46 Sodium Chloride Flush 0.9% 10 Ml Syringe IVP 10 ml 0100,0900,1700 RENETTA Administration Throat Lozenges 1 lozenge 01/25/24 11:39 01/25/24 12:29 Benzocaine/Menthol Lozenge MM 1 lozenge Q2HR PRN Administration Mouth Sore Pain Trazodone HCl 25 mg 01/24/24 21:00 01/30/24 20:50 Trazodone 50 Mg Tablet PO 25 mg QPM RENETTA Administration - Lab Result Fish Bone Diagrams: 01/25/24 05:43 01/31/24 05:54 Subjective - Subjective Patient Reports: Other (Alert. Oriented to name only. She has no complaints to day.) Objective Vital Signs: Vital Signs - 24 hr 01/30/24 01/30/24 01/31/24 16:00 19:50 08:26 Temperature 37 C 36.6 C Heart Rate [ 78 85 Brachial] Respiratory 16 18 Rate Blood Pressure 154/100 H Blood Pressure 125/72 154/88 H [Left Brachial artery] O2 Saturation 98 98 01/31/24 08:44 Temperature Heart Rate [ Brachial] Respiratory Rate Blood Pressure 154/88 H Blood Pressure [Left Brachial artery] O2 Saturation Oxygen O2 Source Room air I&O (Last 24 Hrs): Intake and Output Totals x24h 01/29/24 01/30/24 01/31/24 23:59 23:59 23:59 Intake Total 973 978 Output Total 50 1800 900 Balance 923 -822 -900 General: Alert, No acute distress HEENT: Atraumatic Neck: Supple, No JVD Lymphatic: no adenopathy Neuro: Alert Cardiovascular: Regular rate, Normal S1, Normal S2 Respiratory: Other (Good air exchange in all lung zendejas no wheezing no crackles.) Extremities: No cyanosis Skin: No rashes - Results Results: Laboratory Results WBC 3.8 x10^3/uL (4.8-10.8) L 01/25/24 05:43 RBC 4.32 10^6/uL (4.20-5.40) 01/25/24 05:43 Hgb 12.4 g/dL (12.0-16.0) 01/25/24 05:43 Hct 37.3 % (37.0-47.0) 01/25/24 05:43 MCV 86.3 fL (81.0-99.0) 01/25/24 05:43 MCH 28.7 pg (27.0-31.0) 01/25/24 05:43 MCHC 33.2 g/dL (32.0-36.0) 01/25/24 05:43 RDW 12.8 % (12.0-15.0) 01/25/24 05:43 Plt Count 131 10^3/uL (130-450) 01/25/24 05:43 MPV 9.4 fL (7.9-10.8) 01/25/24 05:43 Neut # (Auto) 2.3 10^3/uL (1.5-6.6) 01/25/24 05:43 Lymph # (Auto) 1.1 10^3/uL (1.5-3.5) L 01/25/24 05:43 Story # (Auto) 0.4 10^3/uL (0.0-1.0) 01/25/24 05:43 Eos # (Auto) 0.0 10^3/uL (0.0-0.7) 01/25/24 05:43 Baso # (Auto) 0.0 10^3/uL (0.0-0.1) 01/25/24 05:43 Absolute Nucleated RBC 0.00 x10^3/uL 01/25/24 05:43 Nucleated RBC % 0.0 /100WBC 01/25/24 05:43 Sodium 137 mmol/L (135-145) 01/31/24 05:54 Potassium 4.0 mmol/L (3.5-4.5) 01/31/24 05:54 Chloride 98 mmol/L (101-111) L 01/31/24 05:54 Carbon Dioxide 32 mmol/L (21-32) 01/31/24 05:54 Anion Gap 7.0 (6-13) 01/31/24 05:54 BUN 19 mg/dL (6-20) 01/31/24 05:54 Creatinine 1.0 mg/dL (0.6-1.3) 01/31/24 05:54 Estimated GFR (MDRD) 55 (>89) L 01/31/24 05:54 Glucose 96 mg/dL (74-104) 01/31/24 05:54 Lactic Acid 0.9 mmol/L (0.5-2.2) 01/23/24 19:03 Calcium 9.8 mg/dL (8.5-10.3) 01/31/24 05:54 Phosphorus 4.8 mg/dL (2.5-5.0) 01/31/24 05:54 Magnesium 2.0 mg/dL (1.7-2.3) 01/31/24 05:54 Total Bilirubin 0.9 mg/dL (0.2-1.0) 01/23/24 19:03 AST 17 IU/L (10-42) 01/23/24 19:03 ALT 9 IU/L (10-60) L 01/23/24 19:03 Alkaline Phosphatase 68 IU/L (42-121) 01/23/24 19:03 Total Protein 7.2 g/dL (6.4-8.9) 01/23/24 19:03 Albumin 4.5 g/dL (3.2-5.5) 01/23/24 19:03 Globulin 2.7 g/dL (2.1-4.2) 01/23/24 19:03 Albumin/Globulin Ratio 1.7 (1.0-2.2) 01/23/24 19:03 Lipase 38 U/L (11-82) 01/23/24 19:03 Urine Color YELLOW 01/23/24 19: Urine Clarity CLOUDY (CLEAR) 01/23/24 19: Urine pH 8.5 PH (5.0-7.5) H 01/23/24 19: Ur Specific [place] 1.015 (1.002-1.030) 01/23/24 19: Urine Protein TRACE mg/dL (NEGATIVE) 01/23/24: Urine Glucose (UA) NEGATIVE mg/dL (NEGATIVE) 01/23/24: Urine Ketones NEGATIVE mg/dL (NEGATIVE) 01/23/24: Urine Occult Blood MODERATE (NEGATIVE) H 01/23/24: Urine Nitrite POSITIVE (NEGATIVE) H 01/23/24: Urine Bilirubin NEGATIVE (NEGATIVE) 01/23/24: Urine Urobilinogen 0.2 (NORMAL) E.U./dL (NORMAL) 01/23/24 19: Ur Leukocyte Esterase TRACE (NEGATIVE) H 01/23/24 19: Urine RBC 6-10 /HPF (0-5) H 01/23/24 19: Urine WBC 4-5 /HPF (0-5) 01/23/24 19:27 Ur Squamous Epith Cells RARE Squamous (<= Few) 01/23/24 19: Amorphous Sediment Few /LPF 01/23/24 19:27 Urine Bacteria Many /HPF (None Seen) H 01/23/24 19:27 Ur Microscopic Review INDICATED 01/23/24 19:27 Urine Culture Comments INDICATED 01/23/24 19:27 Nasal Adenovirus (PCR) NOT DETECTED 01/23/24 20:07 Nasal B. parapertussis DNA (PCR) NOT DETECTED 01/23/24 20:07 Nasal Coronavir 229E PCR NOT DETECTED 01/23/24 20:07 Nasal Coronavir HKU1 PCR NOT DETECTED 01/23/24 20:07 Nasal Coronavir NL63 PCR NOT DETECTED 01/23/24 20:07 Nasal Coronavir OC43 PCR NOT DETECTED 01/23/24 20:07 Nasal Enterovir/Rhinovir PCR NOT DETECTED 01/23/24 20:07 Nasal Influenza B PCR NOT DETECTED 01/23/24 20:07 Nasal Influenza A PCR NOT DETECTED 01/23/24 20:07 Nasal Parainfluen 1 PCR NOT DETECTED 01/23/24 20:07 Nasal Parainfluen 2 PCR NOT DETECTED 01/23/24 20:07 Nasal Parainfluen 3 PCR NOT DETECTED 01/23/24 20:07 Nasal Parainfluen 4 PCR NOT DETECTED 01/23/24 20:07 Nasal RSV (PCR) NOT DETECTED 01/23/24 20:07 Nasal B.pertussis DNA PCR NOT DETECTED 01/23/24 20:07 Nasal C.pneumoniae (PCR) NOT DETECTED 01/23/24 20:07 [place] Human Metapneumo PCR NOT DETECTED 01/23/24 20:07 Nasal M.pneumoniae (PCR) NOT DETECTED 01/23/24 20:07 Nasal SARS-CoV-2 (PCR) DETECTED A 01/23/24 20:07 - Procedures Procedures: Procedures ING HERNIA REP-GRAFT NOS (05/18/13) UNIL FEMOR HRN REP-GRFT (05/18/13) Sepsis Event Note (H) - Evaluation Current Stage of Sepsis: Resolved
--- NOTE | 2024-02-01 09:16 | PROVIDER PROGRESS NOTE ---
Assessment/Plan - Problem List (1) Fall at residential Qualifiers: Encounter type: initial encounter Qualified Code(s): W19.XXXA - Unspecified fall, initial encounter; Y92.129 - Unspecified place in residential as the place of occurrence of the external cause Assessment/Plan: secondary to UTI, Covid-19 infection -treat medical conditions -Treat with PT/OT -patient has been improved, pet PT, patient can be discharged to home with home health, if she is comfortable with the plan (2) COVID-19 Assessment/Plan: No hypoxia, no indication for anti-viral treatment Covid-19 positive on admission, patient has no need of use oxygen, continue supportive care. - Current Meds Current Meds: Current Medications Generic Name Dose Route Start Last Admin Trade Name Freq PRN Reason Stop Dose Admin Acetaminophen 650 mg 01/24/24 00:41 01/30/24 09:01 Acetaminophen 325 Mg Tablet PO 650 mg Q4HR PRN Administration Pain or Fever > 38C (100.4F) Atorvastatin Calcium 20 mg 01/24/24 21:00 01/31/24 21:00 Atorvastatin 10 Mg Tablet PO 20 mg QPM RENETTA Administration Diltiazem HCl 60 mg 01/24/24 19:00 02/01/24 08:35 Diltiazem 60 Mg Tablet PO 60 mg 0800,1300,1900 RENETTA Administration Donepezil HCl 5 mg 01/24/24 21:00 01/31/24 20:59 Donepezil 5 Mg Tablet PO 5 mg QPM RENETTA Administration Enoxaparin Sodium 40 mg 01/24/24 09:00 02/01/24 08:31 Enoxaparin 40 Mg/0.4 Ml Syringe SUBQ 40 mg DAILY RENETTA Administration Lidocaine 1 patch 01/27/24 09:00 02/01/24 08:31 Lidocaine Patch 5% TOP Not Given DAILY RENETTA Lisinopril 20 mg 01/24/24 09:00 02/01/24 08:30 Lisinopril 20 Mg Tablet PO 20 mg DAILY RENETTA Administration Magnesium Oxide 400 mg 01/25/24 18:39 02/01/24 08:30 Magnesium Oxide 400 Mg Tablet PO 400 mg DAILYWM RENETTA Administration Mirtazapine 15 mg 01/24/24 21:00 01/31/24 20:59 Mirtazapine 15 Mg Tablet PO 15 mg QPM RENETTA Administration Multivitamins/Minerals 1 tab 01/27/24 12:00 02/01/24 08:30 Multivitamin W/Minerals Tablet PO 1 tab DAILYWM RENETTA Administration Risperidone 1 mg 01/24/24 21:00 01/31/24 21:00 Risperidone 1 Mg Tablet PO 1 mg QPM RENETTA Administration Sodium Chloride 10 ml 01/23/24 20:28 01/31/24 20:59 Sodium Chloride Flush 0.9% 10 Ml Syringe IVP 10 ml PRN PRN Administration NEEDED PER PROVIDER ORDERS Sodium Chloride 10 ml 01/24/24 01:00 02/01/24 08:31 Sodium Chloride Flush 0.9% 10 Ml Syringe IVP 10 ml 0100,0900,1700 RENETTA Administration Throat Lozenges 1 lozenge 01/25/24 11:39 01/25/24 12:29 Benzocaine/Menthol Lozenge MM 1 lozenge Q2HR PRN Administration Mouth Sore Pain Trazodone HCl 25 mg 01/24/24 21:00 01/31/24 20:59 Trazodone 50 Mg Tablet PO 25 mg QPM RENETTA Administration - Lab Result Fish Bone Diagrams: 01/25/24 05:43 01/31/24 05:54 - Additional Planning Additional Planning Notes: Await for PT/OT re-evaluation tomorrow, if continue improving, can be discharged back to her facility Subjective - Subjective Patient Reports: Feeling Better, Other (able to walk with PT/OT) Objective Vital Signs: Vital Signs - 24 hr 01/31/24 01/31/24 01/31/24 13:14 16:32 18:51 Temperature 36.9 C Heart Rate [ 99 Brachial] Respiratory 17 Rate Blood Pressure 116/70 120/79 Blood Pressure [Left Brachial artery] Blood Pressure 117/69 [Right Radial artery] O2 Saturation 98 01/31/24 02/01/24 02/01/24 20:52 08:08 08:35 Temperature 36.7 C 36.6 C Heart Rate [ 92 73 Brachial] Respiratory 18 14 Rate Blood Pressure 117/68 Blood Pressure 120/71 [Left Brachial artery] Blood Pressure 117/68 [Right Radial artery] O2 Saturation 97 98 Oxygen O2 Source Room air I&O (Last 24 Hrs): Intake and Output Totals x24h 01/30/24 01/31/24 02/01/24 23:59 23:59 23:59 Intake Total 978 250 120 Output Total 1800 1100 Balance -822 -817 120 - Results Results: Laboratory Results WBC 3.8 x10^3/uL (4.8-10.8) L 01/25/24 05:43 RBC 4.32 10^6/uL (4.20-5.40) 01/25/24 05:43 Hgb 12.4 g/dL (12.0-16.0) 01/25/24 05:43 Hct 37.3 % (37.0-47.0) 01/25/24 05:43 MCV 86.3 fL (81.0-99.0) 01/25/24 05:43 MCH 28.7 pg (27.0-31.0) 01/25/24 05:43 MCHC 33.2 g/dL (32.0-36.0) 01/25/24 05:43 RDW 12.8 % (12.0-15.0) 01/25/24 05:43 Plt Count 131 10^3/uL (130-450) 01/25/24 05:43 MPV 9.4 fL (7.9-10.8) 01/25/24 05:43 Neut # (Auto) 2.3 10^3/uL (1.5-6.6) 01/25/24 05:43 Lymph # (Auto) 1.1 10^3/uL (1.5-3.5) L 01/25/24 05:43 [place] # (Auto) 0.4 10^3/uL (0.0-1.0) 01/25/24 05:43 Eos # (Auto) 0.0 10^3/uL (0.0-0.7) 01/25/24 05:43 Baso # (Auto) 0.0 10^3/uL (0.0-0.1) 01/25/24 05:43 Absolute Nucleated RBC 0.00 x10^3/uL 01/25/24 05:43 Nucleated RBC % 0.0 /100WBC 01/25/24 05:43 Sodium 137 mmol/L (135-145) 01/31/24 05:54 Potassium 4.0 mmol/L (3.5-4.5) 01/31/24 05:54 Chloride 98 mmol/L (101-111) L 01/31/24 05:54 Carbon Dioxide 32 mmol/L (21-32) 01/31/24 05:54 Anion Gap 7.0 (6-13) 01/31/24 05:54 BUN 19 mg/dL (6-20) 01/31/24 05:54 Creatinine 1.0 mg/dL (0.6-1.3) 01/31/24 05:54 Estimated GFR (MDRD) 55 (>89) L 01/31/24 05:54 Glucose 96 mg/dL (74-104) 01/31/24 05:54 Lactic Acid 0.9 mmol/L (0.5-2.2) 01/23/24 19:03 Calcium 9.8 mg/dL (8.5-10.3) 01/31/24 05:54 Phosphorus 4.8 mg/dL (2.5-5.0) 01/31/24 05:54 Magnesium 2.0 mg/dL (1.7-2.3) 01/31/24 05:54 Total Bilirubin 0.9 mg/dL (0.2-1.0) 01/23/24 19:03 AST 17 IU/L (10-42) 01/23/24 19:03 ALT 9 IU/L (10-60) L 01/23/24 19:03 Alkaline Phosphatase 68 IU/L (42-121) 01/23/24 19:03 Total Protein 7.2 g/dL (6.4-8.9) 01/23/24 19:03 Albumin 4.5 g/dL (3.2-5.5) 01/23/24 19:03 Globulin 2.7 g/dL (2.1-4.2) 01/23/24 19:03 Albumin/Globulin Ratio 1.7 (1.0-2.2) 01/23/24 19:03 Lipase 38 U/L (11-82) 01/23/24 19:03 Urine Color YELLOW 01/23/24 19:27 Urine Clarity CLOUDY (CLEAR) 01/23/24 19:27 Urine pH 8.5 PH (5.0-7.5) H 01/23/24 19:27 Ur Specific [place] 1.015 (1.002-1.030) 01/23/24 19:27 Urine Protein TRACE mg/dL (NEGATIVE) 01/23/24 19: Urine Glucose (UA) NEGATIVE mg/dL (NEGATIVE) 01/23/24 19: Urine Ketones NEGATIVE mg/dL (NEGATIVE) 01/23/24 19: Urine Occult Blood MODERATE (NEGATIVE) H 01/23/24 19: Urine Nitrite POSITIVE (NEGATIVE) H 01/23/24 19: Urine Bilirubin NEGATIVE (NEGATIVE) 01/23/24 19: Urine Urobilinogen 0.2 (NORMAL) E.U./dL (NORMAL) 01/23/24 19:27 Ur Leukocyte Esterase TRACE (NEGATIVE) H 01/23/24 19: Urine RBC 6-10 /HPF (0-5) H 01/23/24 19: Urine WBC 4-5 /HPF (0-5) 01/23/24 19:27 Ur Squamous Epith Cells RARE Squamous (<= Few) 01/23/24 19: Amorphous Sediment Few /LPF 01/23/24 19: Urine Bacteria Many /HPF (None Seen) H 01/23/24 19:27 Ur Microscopic Review INDICATED 01/23/24 19:27 Urine Culture Comments INDICATED 01/23/24 19:27 Nasal Adenovirus (PCR) NOT DETECTED 01/23/24 20:07 Nasal B. parapertussis DNA (PCR) NOT DETECTED 01/23/24 20:07 Nasal Coronavir 229E PCR NOT DETECTED 01/23/24 20:07 Nasal Coronavir HKU1 PCR NOT DETECTED 01/23/24 20:07 Nasal Coronavir NL63 PCR NOT DETECTED 01/23/24 20:07 Nasal Coronavir OC43 PCR NOT DETECTED 01/23/24 20:07 Nasal Enterovir/Rhinovir PCR NOT DETECTED 01/23/24 20:07 Nasal Influenza B PCR NOT DETECTED 01/23/24 20:07 Nasal Influenza A PCR NOT DETECTED 01/23/24 20:07 Nasal Parainfluen 1 PCR NOT DETECTED 01/23/24 20:07 Nasal Parainfluen 2 PCR NOT DETECTED 01/23/24 20:07 Nasal Parainfluen 3 PCR NOT DETECTED 01/23/24 20:07 Nasal Parainfluen 4 PCR NOT DETECTED 01/23/24 20:07 Nasal RSV (PCR) NOT DETECTED 01/23/24 20:07 Nasal B.pertussis DNA PCR NOT DETECTED 01/23/24 20:07 Nasal C.pneumoniae (PCR) NOT DETECTED 01/23/24 20:07 [place] Human Metapneumo PCR NOT DETECTED 01/23/24 20:07 Nasal M.pneumoniae (PCR) NOT DETECTED 01/23/24 20:07 Nasal SARS-CoV-2 (PCR) DETECTED A 01/23/24 20:07 - Procedures Procedures: Procedures ING HERNIA REP-GRAFT NOS (05/18/13) UNIL FEMOR HRN REP-GRFT (05/18/13) Sepsis Event Note (H) - Evaluation Current Stage of Sepsis: Resolved ABX Reporting Has patient been on IV antibiotics over the past 48 hours?: No Current Medications - Current Medications Current Medications: Active Medications Acetaminophen (Acetaminophen 325 Mg Tablet) 650 mg PO Q4HR PRN PRN Reason: Pain or Fever > 38C (100.4F) Last Admin: 01/30/24 09:01 Dose: 650 mg Atorvastatin Calcium (Atorvastatin 10 Mg Tablet) 20 mg PO QPM [facility] Last Admin: 02/01/24 21:08 Dose: 20 mg Diltiazem HCl (Diltiazem 60 Mg Tablet) 60 mg PO 0800,1300,1900 [facility] Last Admin: 02/01/24 19:15 Dose: 60 mg Donepezil HCl (Donepezil 5 Mg Tablet) 5 mg PO QPM [facility] Last Admin: 02/01/24 21:08 Dose: 5 mg Enoxaparin Sodium (Enoxaparin 40 Mg/0.4 Ml Syringe) 40 mg SUBQ DAILY [facility] Last Admin: 02/01/24 08:31 Dose: 40 mg Lidocaine (Lidocaine Patch 5%) 1 patch TOP DAILY [facility] Last Admin: 02/01/24 08:31 Dose: Not Given Lisinopril (Lisinopril 20 Mg Tablet) 20 mg PO DAILY [facility] Last Admin: 02/01/24 08:30 Dose: 20 mg Magnesium Oxide (Magnesium Oxide 400 Mg Tablet) 400 mg PO DAILYWM [facility] Last Admin: 02/01/24 08:30 Dose: 400 mg Mirtazapine (Mirtazapine 15 Mg Tablet) 15 mg PO QPM [facility] Last Admin: 02/01/24 21:08 Dose: 15 mg Multivitamins/Minerals (Multivitamin W/Minerals Tablet) 1 tab PO DAILYWM [facility] Last Admin: 02/01/24 08:30 Dose: 1 tab Risperidone (Risperidone 1 Mg Tablet) 1 mg PO QPM [facility] Last Admin: 02/01/24 21:09 Dose: 1 mg Sodium Chloride (Sodium Chloride Flush 0.9% 10 Ml Syringe) 10 ml IVP PRN PRN PRN Reason: NEEDED PER PROVIDER ORDERS Last Admin: 01/31/24 20:59 Dose: 10 ml Sodium Chloride (Sodium Chloride Flush 0.9% 10 Ml Syringe) 10 ml IVP 0100,0900,1700 [facility] Last Admin: 02/01/24 19:00 Dose: Not Given Throat Lozenges (Benzocaine/Menthol Lozenge) 1 lozenge MM Q2HR PRN PRN Reason: Mouth Sore Pain Last Admin: 01/25/24 12:29 Dose: 1 lozenge Trazodone HCl (Trazodone 50 Mg Tablet) 25 mg PO QPM [facility] Last Admin: 02/01/24 21:09 Dose: 25 mg Atorvastatin [Lipitor] 20 mg PO DAILY 01/23/24 Donepezil [Aricept] 5 mg PO QPM 01/23/24 Mirtazapine 15 mg PO QPM 01/23/24 amLODIPine [Norvasc] 2.5 mg PO DAILY 01/23/24 traZODone [Desyrel] 25 mg PO QPM 01/24/24
--- NOTE | 2024-02-02 13:40 | Discharge Plan ---
Discharge Plan Problem Reviewed?: Yes Disposition: 03 [facility] DC/Xfer Condition: Stable Prescriptions: traZODone [Desyrel] 25 mg PO QPM 30 Days #15 tab Megestrol [Megace] 400 mg PO DAILY 30 Days ea risperiDONE [RisperDAL] 1 mg PO QPM 30 Days #30 tablet Multivitamin W/Minerals [Theragran M] 1 tab PO DAILYWM 30 Days #30 tab Diet: Regular Activity Restrictions: Additional Comments (Be slow when getting up, patient has orthostatic hypotension.) Shower Restrictions: No Driving Restrictions: Yes (congative function impaired) Assistance Devices: Walker Weight Bearing: Full Weight Instruction Topics: Falls Risks Prevent Health Concerns: Urine culture grew E. coli and Proteus, Your UTI was treated during hospital stay with Ceftriaxone, your fever and leukocytosis resolved. You are tested COVID-positive on 01/23/2024, your oxygen saturation has remained in the upper 90s on room air, no Antiviral treatment Indicated, you received only supportive care Regarding your falls at shelter, imaging results showed no fracture or dislocation of your facial bones, head CT no acute injury. Chest x-ray showed no fracture or other pathology. Plan of Treatment: continue PT OT to improve function the goal is to maintain your baseline function is much as possible Care Goals: Resume baseline independent ADLs Assessment: During hospital stay orthostatic hypotension noted while patient is on 60 mg of Cardizem. Decrease the dose to 30 mg. Also instructed patient to hold Cardizem if systolic blood pressure less than 130 With further PT eval, patient is recommended to discharge to SNF Follow-Up Care: Home Health - PT, Home Health - OT No Smoking: If you smoke, Please STOP! Call for help.
--- NOTE | 2024-02-02 17:06 | PROVIDER PROGRESS NOTE ---
Assessment/Plan - Problem List (1) Fall at skilled nursing Qualifiers: Encounter type: initial encounter Qualified Code(s): W19.XXXA - Unspecified fall, initial encounter; Y92.129 - Unspecified place in skilled nursing as the place of occurrence of the external cause Assessment/Plan: Improving Per PT OT evaluation, patient is stable to be discharged to home with home health and home PT OT Await for final plan of the assisted living facility (3) Hypertension, uncontrolled Assessment/Plan: Patient was put on Cardizem 60 mg 3 times a day, blood pressure improved However episode of lightheadedness noted after Cardizem given, orthostatic vital signs were positive for orthostatic hypotension Decrease Cardizem dose to 30 mg Monitoring blood pressure - Current Meds Current Meds: Current Medications Generic Name Dose Route Start Last Admin Trade Name Freq PRN Reason Stop Dose Admin Acetaminophen 650 mg 01/24/24 00:41 01/30/24 09:01 Acetaminophen 325 Mg Tablet PO 650 mg Q4HR PRN Administration Pain or Fever > 38C (100.4F) Atorvastatin Calcium 20 mg 01/24/24 21:00 02/01/24 21:08 Atorvastatin 10 Mg Tablet PO 20 mg QPM RENETTA Administration Donepezil HCl 5 mg 01/24/24 21:00 02/01/24 21:08 Donepezil 5 Mg Tablet PO 5 mg QPM RENETTA Administration Enoxaparin Sodium 40 mg 01/24/24 09:00 02/02/24 08:45 Enoxaparin 40 Mg/0.4 Ml Syringe SUBQ 40 mg DAILY RENETTA Administration Lidocaine 1 patch 01/27/24 09:00 02/02/24 10:54 Lidocaine Patch 5% TOP Not Given DAILY RENETTA Lisinopril 20 mg 01/24/24 09:00 02/02/24 08:45 Lisinopril 20 Mg Tablet PO 20 mg DAILY RENETTA Administration Magnesium Oxide 400 mg 01/25/24 18:39 02/02/24 08:45 Magnesium Oxide 400 Mg Tablet PO 400 mg DAILYWM RENETTA Administration Mirtazapine 15 mg 01/24/24 21:00 02/01/24 21:08 Mirtazapine 15 Mg Tablet PO 15 mg QPM RENETTA Administration Multivitamins/Minerals 1 tab 01/27/24 12:00 02/02/24 08:45 Multivitamin W/Minerals Tablet PO 1 tab DAILYWM RENETTA Administration Risperidone 1 mg 01/24/24 21:00 02/01/24 21:09 Risperidone 1 Mg Tablet PO 1 mg QPM RENETTA Administration Sodium Chloride 10 ml 01/23/24 20:28 01/31/24 20:59 Sodium Chloride Flush 0.9% 10 Ml Syringe IVP 10 ml PRN PRN Administration NEEDED PER PROVIDER ORDERS Sodium Chloride 10 ml 01/24/24 01:00 02/02/24 15:53 Sodium Chloride Flush 0.9% 10 Ml Syringe IVP Not Given 0100,0900,1700 RENETTA Throat Lozenges 1 lozenge 01/25/24 11:39 01/25/24 12:29 Benzocaine/Menthol Lozenge MM 1 lozenge Q2HR PRN Administration Mouth Sore Pain Trazodone HCl 25 mg 01/24/24 21:00 02/01/24 21:09 Trazodone 50 Mg Tablet PO 25 mg QPM RENETTA Administration - Lab Result Fish Bone Diagrams: 01/25/24 05:43 01/31/24 05:54 - Diagnostic Imaging Results Diagnostic Imaging Results: Final report reviewed - Additional Planning Condition/Complexity: Stable My Orders: My Active Orders 02/02/24 Home Health Referral [CONS] Routine Social Work Consult [CONS] Routine 02/02/24 10:33 Vital Signs - Orthostatic [RC] Q4-6H 02/02/24 19:00 [id number] [Cardizem] 30 mg PO 0800,1300,1900 Plan Discussed with:: Patient, Family Time Spent: 15-30 minutes (Patient is medically stable for discharge Await for final safe discharge placement) Objective Vital Signs: Vital Signs - 24 hr 02/02/24 02/02/24 02/02/24 08:16 08:48 09:38 Temperature 36.2 C L Heart Rate [ 84 110 H Brachial] Respiratory 17 Rate Blood Pressure 141/86 H Blood Pressure 141/86 H 78/58 L [Right Radial artery] O2 Saturation 99 96 Oxygen O2 Source Room air I&O (Last 24 Hrs): Intake and Output Totals x24h 01/31/24 02/01/24 02/02/24 23:59 23:59 23:59 Intake Total 250 510 180 Output Total 1100 Balance -850 510 180 - Results Results: Laboratory Results WBC 3.8 x10^3/uL (4.8-10.8) L 01/25/24 05:43 RBC 4.32 10^6/uL (4.20-5.40) 01/25/24 05:43 Hgb 12.4 g/dL (12.0-16.0) 01/25/24 05:43 Hct 37.3 % (37.0-47.0) 01/25/24 05:43 MCV 86.3 fL (81.0-99.0) 01/25/24 05:43 MCH 28.7 pg (27.0-31.0) 01/25/24 05:43 MCHC 33.2 g/dL (32.0-36.0) 01/25/24 05:43 RDW 12.8 % (12.0-15.0) 01/25/24 05:43 Plt Count 131 10^3/uL (130-450) 01/25/24 05:43 MPV 9.4 fL (7.9-10.8) 01/25/24 05:43 Neut # (Auto) 2.3 10^3/uL (1.5-6.6) 01/25/24 05:43 Lymph # (Auto) 1.1 10^3/uL (1.5-3.5) L 01/25/24 05:43 [place] # (Auto) 0.4 10^3/uL (0.0-1.0) 01/25/24 05:43 Eos # (Auto) 0.0 10^3/uL (0.0-0.7) 01/25/24 05:43 Baso # (Auto) 0.0 10^3/uL (0.0-0.1) 01/25/24 05:43 Absolute Nucleated RBC 0.00 x10^3/uL 01/25/24 05:43 Nucleated RBC % 0.0 /100WBC 01/25/24 05:43 Sodium 137 mmol/L (135-145) 01/31/24 05:54 Potassium 4.0 mmol/L (3.5-4.5) 01/31/24 05:54 Chloride 98 mmol/L (101-111) L 01/31/24 05:54 Carbon Dioxide 32 mmol/L (21-32) 01/31/24 05:54 Anion Gap 7.0 (6-13) 01/31/24 05:54 BUN 19 mg/dL (6-20) 01/31/24 05:54 Creatinine 1.0 mg/dL (0.6-1.3) 01/31/24 05:54 Estimated GFR (MDRD) 55 (>89) L 01/31/24 05:54 Glucose 96 mg/dL (74-104) 01/31/24 05:54 Lactic Acid 0.9 mmol/L (0.5-2.2) 01/23/24 19:03 Calcium 9.8 mg/dL (8.5-10.3) 01/31/24 05:54 Phosphorus 4.8 mg/dL (2.5-5.0) 01/31/24 05:54 Magnesium 2.0 mg/dL (1.7-2.3) 01/31/24 05:54 Total Bilirubin 0.9 mg/dL (0.2-1.0) 01/23/24 19:03 AST 17 IU/L (10-42) 01/23/24 19:03 ALT 9 IU/L (10-60) L 01/23/24 19:03 Alkaline Phosphatase 68 IU/L (42-121) 01/23/24 19:03 Total Protein 7.2 g/dL (6.4-8.9) 01/23/24 19:03 Albumin 4.5 g/dL (3.2-5.5) 01/23/24 19:03 Globulin 2.7 g/dL (2.1-4.2) 01/23/24 19:03 Albumin/Globulin Ratio 1.7 (1.0-2.2) 01/23/24 19:03 Lipase 38 U/L (11-82) 01/23/24 19:03 Urine Color YELLOW 01/23/24 19:27 Urine Clarity CLOUDY (CLEAR) 01/23/24 19:27 Urine pH 8.5 PH (5.0-7.5) H 01/23/24 19:27 Ur Specific [place] 1.015 (1.002-1.030) 01/23/24 19:27 Urine Protein TRACE mg/dL (NEGATIVE) 01/23/24 19:27 Urine Glucose (UA) NEGATIVE mg/dL (NEGATIVE) 01/23/24 19:27 Urine Ketones NEGATIVE mg/dL (NEGATIVE) 01/23/24 19:27 Urine Occult Blood MODERATE (NEGATIVE) H 01/23/24 19:27 Urine Nitrite POSITIVE (NEGATIVE) H 01/23/24 19: Urine Bilirubin NEGATIVE (NEGATIVE) 01/23/24 19: Urine Urobilinogen 0.2 (NORMAL) E.U./dL (NORMAL) 01/23/24 19:27 Ur Leukocyte Esterase TRACE (NEGATIVE) H 01/23/24 19:27 Urine RBC 6-10 /HPF (0-5) H 01/23/24 19:27 Urine WBC 4-5 /HPF (0-5) 01/23/24 19:27 Ur Squamous Epith Cells RARE Squamous (<= Few) 01/23/24 19: Amorphous Sediment Few /LPF 01/23/24 19: Urine Bacteria Many /HPF (None Seen) H 01/23/24 19:27 Ur Microscopic Review INDICATED 01/23/24 19: Urine Culture Comments INDICATED 01/23/24 19: Nasal Adenovirus (PCR) NOT DETECTED 01/23/24 20:07 Nasal B. parapertussis DNA (PCR) NOT DETECTED 01/23/24 20:07 Nasal Coronavir 229E PCR NOT DETECTED 01/23/24 20:07 Nasal Coronavir HKU1 PCR NOT DETECTED 01/23/24 20:07 Nasal Coronavir NL63 PCR NOT DETECTED 01/23/24 20:07 Nasal Coronavir OC43 PCR NOT DETECTED 01/23/24 20:07 Nasal Enterovir/Rhinovir PCR NOT DETECTED 01/23/24 20:07 Nasal Influenza B PCR NOT DETECTED 01/23/24 20:07 Nasal Influenza A PCR NOT DETECTED 01/23/24 20:07 Nasal Parainfluen 1 PCR NOT DETECTED 01/23/24 20:07 Nasal Parainfluen 2 PCR NOT DETECTED 01/23/24 20:07 Nasal Parainfluen 3 PCR NOT DETECTED 01/23/24 20:07 Nasal Parainfluen 4 PCR NOT DETECTED 01/23/24 20:07 Nasal RSV (PCR) NOT DETECTED 01/23/24 20:07 Nasal B.pertussis DNA PCR NOT DETECTED 01/23/24 20:07 Nasal C.pneumoniae (PCR) NOT DETECTED 01/23/24 20:07 [place] Human Metapneumo PCR NOT DETECTED 01/23/24 20:07 Nasal M.pneumoniae (PCR) NOT DETECTED 01/23/24 20:07 Nasal SARS-CoV-2 (PCR) DETECTED A 01/23/24 20:07 - Procedures Procedures: Procedures ING HERNIA REP-GRAFT NOS (05/18/13) UNIL FEMOR HRN REP-GRFT (05/18/13) Sepsis Event Note (H) - Evaluation Current Stage of Sepsis: Resolved ABX Reporting Has patient been on IV antibiotics over the past 48 hours?: No
--- NOTE | 2024-02-03 07:28 | PROVIDER PROGRESS NOTE ---
Assessment/Plan - Problem List (1) Fall at senior living Qualifiers: Encounter type: initial encounter Qualified Code(s): W19.XXXA - Unspecified fall, initial encounter; Y92.129 - Unspecified place in senior living as the place of occurrence of the external cause Assessment/Plan: unsteady gait -PT/OT -SNF placement (2) COVID-19 Assessment/Plan: No hypoxia, but complaints of weakness, may related to covid-19 infection also poor oral intake, due to poor appetite -give megac (3) Hypertension, uncontrolled Assessment/Plan: has orthostatic hypotension -discontinue cardizem -Bp monitoring -orthostatic vitals (4) Orthostatic hypotension Assessment/Plan: Orthostatic dizziness Orthostatic hypotension noted -discontinue cardizem -give compression stocking -encourage oral intake -PT/OT -SNF placement (6) At risk for malnutrition Assessment/Plan: poor oral intake, in the setting of recent covid infection, cognitive impairment -nutrition consult -encourage oral intake, provide nutrition supplement -add on megace - Current Meds Current Meds: Current Medications Generic Name Dose Route Start Last Admin Trade Name Freq PRN Reason Stop Dose Admin Acetaminophen 650 mg 01/24/24 00:41 01/30/24 09:01 Acetaminophen 325 Mg Tablet PO 650 mg Q4HR PRN Administration Pain or Fever > 38C (100.4F) Atorvastatin Calcium 20 mg 01/24/24 21:00 02/02/24 20:35 Atorvastatin 10 Mg Tablet PO 20 mg QPM RENETTA Administration Donepezil HCl 5 mg 01/24/24 21:00 02/02/24 20:35 Donepezil 5 Mg Tablet PO 5 mg QPM RENETTA Administration Enoxaparin Sodium 40 mg 01/24/24 09:00 02/02/24 08:45 Enoxaparin 40 Mg/0.4 Ml Syringe SUBQ 40 mg DAILY RENETTA Administration Lidocaine 1 patch 01/27/24 09:00 02/02/24 10:54 Lidocaine Patch 5% TOP Not Given DAILY RENETTA Lisinopril 20 mg 01/24/24 09:00 02/02/24 08:45 Lisinopril 20 Mg Tablet PO 20 mg DAILY RENETTA Administration Magnesium Oxide 400 mg 01/25/24 18:39 02/02/24 08:45 Magnesium Oxide 400 Mg Tablet PO 400 mg DAILYWM RENETTA Administration Mirtazapine 15 mg 01/24/24 21:00 02/02/24 20:35 Mirtazapine 15 Mg Tablet PO 15 mg QPM RENETTA Administration Multivitamins/Minerals 1 tab 01/27/24 12:00 02/02/24 08:45 Multivitamin W/Minerals Tablet PO 1 tab DAILYWM RENETTA Administration Risperidone 1 mg 01/24/24 21:00 02/02/24 20:35 Risperidone 1 Mg Tablet PO 1 mg QPM RENETTA Administration Sodium Chloride 10 ml 01/23/24 20:28 01/31/24 20:59 Sodium Chloride Flush 0.9% 10 Ml Syringe IVP 10 ml PRN PRN Administration NEEDED PER PROVIDER ORDERS Sodium Chloride 10 ml 01/24/24 01:00 02/03/24 00:29 Sodium Chloride Flush 0.9% 10 Ml Syringe IVP Not Given 0100,0900,1700 RENETTA Throat Lozenges 1 lozenge 01/25/24 11:39 01/25/24 12:29 Benzocaine/Menthol Lozenge MM 1 lozenge Q2HR PRN Administration Mouth Sore Pain Trazodone HCl 25 mg 01/24/24 21:00 02/02/24 20:35 Trazodone 50 Mg Tablet PO 25 mg QPM RENETTA Administration - Lab Result Fish Bone Diagrams: 01/25/24 05:43 01/31/24 05:54 - Additional Planning Condition/Complexity: Other (orthostatic dizziness, orthostatic hypotension) My Orders: My Active Orders 02/02/24 10:33 Vital Signs - Orthostatic [RC] QSHIFT 02/03/24 09:00 polyethylene glycoL 3350 [Miralax] 17 gm PO DAILY Plan Discussed with:: Patient Time Spent: 15-30 minutes Additional Planning Notes: With orthostatic dizziness, orthosatic hypotension, patient is not medically stable for discharge today anticipate discharge in 2-3 days, to SNF Subjective - Subjective Patient Reports: Other (reports feels well, reports "I have been eating, I had good breakfast") Nursing Reports: Other (Each meal, only each very small portion of food) Objective Vital Signs: Vital Signs - 24 hr 02/02/24 02/02/24 02/02/24 08:16 08:48 09:38 Temperature 36.2 C L Heart Rate [ 84 110 H Brachial] Respiratory 17 Rate Blood Pressure 141/86 H Blood Pressure 141/86 H 78/58 L [Right Radial artery] O2 Saturation 99 96 02/02/24 18:38 Temperature Heart Rate [ Brachial] Respiratory Rate Blood Pressure 123/68 Blood Pressure [Right Radial artery] O2 Saturation Oxygen O2 Source Room air I&O (Last 24 Hrs): Intake and Output Totals x24h 02/01/24 02/02/24 02/03/24 23:59 23:59 23:59 Intake Total 510 431 Balance 510 431 General: Alert, Cooperative HEENT: PERRLA, EOMI Neck: Supple Neuro: Alert, Non Focal Cardiovascular: Regular rate Extremities: No edema - Results Results: Laboratory Results WBC 3.8 x10^3/uL (4.8-10.8) L 01/25/24 05:43 RBC 4.32 10^6/uL (4.20-5.40) 01/25/24 05:43 Hgb 12.4 g/dL (12.0-16.0) 01/25/24 05:43 Hct 37.3 % (37.0-47.0) 01/25/24 05:43 MCV 86.3 fL (81.0-99.0) 01/25/24 05:43 MCH 28.7 pg (27.0-31.0) 01/25/24 05:43 MCHC 33.2 g/dL (32.0-36.0) 01/25/24 05:43 RDW 12.8 % (12.0-15.0) 01/25/24 05:43 Plt Count 131 10^3/uL (130-450) 01/25/24 05:43 MPV 9.4 fL (7.9-10.8) 01/25/24 05:43 Neut # (Auto) 2.3 10^3/uL (1.5-6.6) 01/25/24 05:43 Lymph # (Auto) 1.1 10^3/uL (1.5-3.5) L 01/25/24 05:43 [place] # (Auto) 0.4 10^3/uL (0.0-1.0) 01/25/24 05:43 Eos # (Auto) 0.0 10^3/uL (0.0-0.7) 01/25/24 05:43 Baso # (Auto) 0.0 10^3/uL (0.0-0.1) 01/25/24 05:43 Absolute Nucleated RBC 0.00 x10^3/uL 01/25/24 05:43 Nucleated RBC % 0.0 /100WBC 01/25/24 05:43 Sodium 137 mmol/L (135-145) 01/31/24 05:54 Potassium 4.0 mmol/L (3.5-4.5) 01/31/24 05:54 Chloride 98 mmol/L (101-111) L 01/31/24 05:54 Carbon Dioxide 32 mmol/L (21-32) 01/31/24 05:54 Anion Gap 7.0 (6-13) 01/31/24 05:54 BUN 19 mg/dL (6-20) 01/31/24 05:54 Creatinine 1.0 mg/dL (0.6-1.3) 01/31/24 05:54 Estimated GFR (MDRD) 55 (>89) L 01/31/24 05:54 Glucose 96 mg/dL (74-104) 01/31/24 05:54 Lactic Acid 0.9 mmol/L (0.5-2.2) 01/23/24 19:03 Calcium 9.8 mg/dL (8.5-10.3) 01/31/24 05:54 Phosphorus 4.8 mg/dL (2.5-5.0) 01/31/24 05:54 Magnesium 2.0 mg/dL (1.7-2.3) 01/31/24 05:54 Total Bilirubin 0.9 mg/dL (0.2-1.0) 01/23/24 19:03 AST 17 IU/L (10-42) 01/23/24 19:03 ALT 9 IU/L (10-60) L 01/23/24 19:03 Alkaline Phosphatase 68 IU/L (42-121) 01/23/24 19:03 Total Protein 7.2 g/dL (6.4-8.9) 01/23/24 19:03 Albumin 4.5 g/dL (3.2-5.5) 01/23/24 19:03 Globulin 2.7 g/dL (2.1-4.2) 01/23/24 19:03 Albumin/Globulin Ratio 1.7 (1.0-2.2) 01/23/24 19:03 Lipase 38 U/L (11-82) 01/23/24 19:03 Urine Color YELLOW 01/23/24 19:27 Urine Clarity CLOUDY (CLEAR) 01/23/24 19: Urine pH 8.5 PH (5.0-7.5) H 01/23/24 19:27 Ur Specific [place] 1.015 (1.002-1.030) 01/23/24 19: Urine Protein TRACE mg/dL (NEGATIVE) 01/23/24 19: Urine Glucose (UA) NEGATIVE mg/dL (NEGATIVE) 01/23/24 19: Urine Ketones NEGATIVE mg/dL (NEGATIVE) 01/23/24 19: Urine Occult Blood MODERATE (NEGATIVE) H 01/23/24 19: Urine Nitrite POSITIVE (NEGATIVE) H 01/23/24 19: Urine Bilirubin NEGATIVE (NEGATIVE) 01/23/24 19: Urine Urobilinogen 0.2 (NORMAL) E.U./dL (NORMAL) 01/23/24 19:27 Ur Leukocyte Esterase TRACE (NEGATIVE) H 01/23/24 19:27 Urine RBC 6-10 /HPF (0-5) H 01/23/24 19:27 Urine WBC 4-5 /HPF (0-5) 01/23/24 19:27 Ur Squamous Epith Cells RARE Squamous (<= Few) 01/23/24 19:27 Amorphous Sediment Few /LPF 01/23/24 19:27 Urine Bacteria Many /HPF (None Seen) H 01/23/24 19:27 Ur Microscopic Review INDICATED 01/23/24 19:27 Urine Culture Comments INDICATED 01/23/24 19:27 Nasal Adenovirus (PCR) NOT DETECTED 01/23/24 20:07 Nasal B. parapertussis DNA (PCR) NOT DETECTED 01/23/24 20:07 Nasal Coronavir 229E PCR NOT DETECTED 01/23/24 20:07 Nasal Coronavir HKU1 PCR NOT DETECTED 01/23/24 20:07 Nasal Coronavir NL63 PCR NOT DETECTED 01/23/24 20:07 Nasal Coronavir OC43 PCR NOT DETECTED 01/23/24 20:07 Nasal Enterovir/Rhinovir PCR NOT DETECTED 01/23/24 20:07 Nasal Influenza B PCR NOT DETECTED 01/23/24 20:07 Nasal Influenza A PCR NOT DETECTED 01/23/24 20:07 Nasal Parainfluen 1 PCR NOT DETECTED 01/23/24 20:07 Nasal Parainfluen 2 PCR NOT DETECTED 01/23/24 20:07 Nasal Parainfluen 3 PCR NOT DETECTED 01/23/24 20:07 Nasal Parainfluen 4 PCR NOT DETECTED 01/23/24 20:07 Nasal RSV (PCR) NOT DETECTED 01/23/24 20:07 Nasal B.pertussis DNA PCR NOT DETECTED 01/23/24 20:07 Nasal C.pneumoniae (PCR) NOT DETECTED 01/23/24 20:07 [place] Human Metapneumo PCR NOT DETECTED 01/23/24 20:07 Nasal M.pneumoniae (PCR) NOT DETECTED 01/23/24 20:07 Nasal SARS-CoV-2 (PCR) DETECTED A 01/23/24 20:07 - Procedures Procedures: Procedures ING HERNIA REP-GRAFT NOS (05/18/13) UNIL FEMOR HRN REP-GRFT (05/18/13) Sepsis Event Note (H) - Evaluation Current Stage of Sepsis: Resolved ABX Reporting Has patient been on IV antibiotics over the past 48 hours?: No
[2024-02-03] MEDS: polyethylene glycoL 3350 17 GM PACKET PO SCH (10:05)
[2024-02-03] MEDS: SENNA 8.6 MG TABLET PO SCH (10:09)
[2024-02-03] MEDS: MEGESTROL 400 MG/10 ML UDC PO SCH (12:33)
[2024-02-04 07:55] LABS: CALCIUM 9.8 mg/dL (8.5-10.3); CREATININE 1.5 mg/dL (0.6-1.3); POTASSIUM 4.2 mmol/L (3.5-4.5)
--- NOTE | 2024-02-04 08:27 | PROVIDER PROGRESS NOTE ---
Assessment/Plan - Problem List (1) BONNY (acute kidney injury) Assessment/Plan: Likely related to poor oral intake Creatinine 1.5 today, comparing to baseline 0.81.0 Give IV fluid Hold lisinopril Monitoring renal function (2) Fall at intermediate Qualifiers: Encounter type: initial encounter Qualified Code(s): W19.XXXA - Unspecified fall, initial encounter; Y92.129 - Unspecified place in intermediate as the place of occurrence of the external cause Assessment/Plan: PT OT Discharge Plan to SNF (3) COVID-19 Assessment/Plan: No respiratory symptoms Generalized weakness may related to COVID infection Supportive care (4) Hypertension, uncontrolled Assessment/Plan: Improved and stable BP systolic 100-130/60s (5) Orthostatic hypotension Assessment/Plan: Improved, After IV fluid Encourage patient oral intake (6) Malnutrition Qualifiers: Protein-calorie malnutrition severity: unspecified severity Assessment/Plan: Patient is able to eat 50 to 75% of her meal today Continue give megace - Current Meds Current Meds: Current Medications Generic Name Dose Route Start Last Admin Trade Name Freq PRN Reason Stop Dose Admin Acetaminophen 650 mg 01/24/24 00:41 01/30/24 09:01 Acetaminophen 325 Mg Tablet PO 650 mg Q4HR PRN Administration Pain or Fever > 38C (100.4F) Atorvastatin Calcium 20 mg 01/24/24 21:00 02/03/24 20:47 Atorvastatin 10 Mg Tablet PO 20 mg QPM RENETTA Administration Donepezil HCl 5 mg 01/24/24 21:00 02/03/24 20:47 Donepezil 5 Mg Tablet PO 5 mg QPM RENETTA Administration Enoxaparin Sodium 40 mg 01/24/24 09:00 02/04/24 08:10 Enoxaparin 40 Mg/0.4 Ml Syringe SUBQ 40 mg DAILY RENETTA Administration Lidocaine 1 patch 01/27/24 09:00 02/03/24 09:09 Lidocaine Patch 5% TOP Not Given DAILY RENETTA Lisinopril 20 mg 01/24/24 09:00 02/04/24 08:10 Lisinopril 20 Mg Tablet PO 20 mg DAILY RENETTA Administration Magnesium Oxide 400 mg 01/25/24 18:39 02/04/24 08:10 Magnesium Oxide 400 Mg Tablet PO 400 mg DAILYWM RENETTA Administration Megestrol Acetate 400 mg 02/03/24 12:00 02/04/24 08:10 Megestrol 400 Mg/10 Ml Udc PO 400 mg DAILY RENETTA Administration Mirtazapine 15 mg 01/24/24 21:00 02/03/24 20:47 Mirtazapine 15 Mg Tablet PO 15 mg QPM RENETTA Administration Multivitamins/Minerals 1 tab 01/27/24 12:00 02/04/24 08:10 Multivitamin W/Minerals Tablet PO 1 tab DAILYWM RENETTA Administration Polyethylene Glycol 17 gm 02/03/24 09:00 02/03/24 10:05 Polyethylene Glycol 3350 17 Gm Packet PO Not Given DAILY RENETTA Risperidone 1 mg 01/24/24 21:00 02/03/24 20:47 Risperidone 1 Mg Tablet PO 1 mg QPM RENETTA Administration Senna 8.6 - 17.2 mg 02/03/24 10:00 02/04/24 08:10 Senna 8.6 Mg Tablet PO 8.6 mg DAILY RENETTA Administration Sodium Chloride 10 ml 01/23/24 20:28 01/31/24 20:59 Sodium Chloride Flush 0.9% 10 Ml Syringe IVP 10 ml PRN PRN Administration NEEDED PER PROVIDER ORDERS Sodium Chloride 10 ml 01/24/24 01:00 02/04/24 00:16 Sodium Chloride Flush 0.9% 10 Ml Syringe IVP Not Given 0100,0900,1700 [facility] Throat Lozenges 1 lozenge 01/25/24 11:39 01/25/24 12:29 Benzocaine/Menthol Lozenge MM 1 lozenge Q2HR PRN Administration Mouth Sore Pain Trazodone HCl 25 mg 01/24/24 21:00 02/03/24 20:47 Trazodone 50 Mg Tablet PO 25 mg QPM RENETTA Administration - Lab Result Lab results reviewed: Yes Fish Bone Diagrams: 02/04/24 07:23 02/04/24 07:23 - Additional Planning Condition/Complexity: Improved My Orders: My Active Orders 02/03/24 07:28 KEYONNA Riggs and Maria De Jesus [RC] QSHIFT 02/03/24 09:00 polyethylene glycoL 3350 [Miralax] 17 gm PO DAILY 02/03/24 12:00 Megestrol [Megace] 400 mg PO DAILY 02/04/24 07:23 CBC [CBC - COMP BLD CT W/AUTO DIFF] [HEME] DAILYLAB 02/04/24 09:00 NS 0.9% @ 83.333 mls/hr Sodium Chloride 0.9% [Normal Saline 0.9%] 1,000 ml IV 83.333 mls/hr Plan Discussed with:: Patient Time Spent: 15-30 minutes Additional Planning Notes: Patient has BONNY, still has orthostatic dizziness Not medically stable for discharge Objective Vital Signs: Vital Signs - 24 hr 02/03/24 02/03/24 02/03/24 09:00 18:00 23:21 Temperature 37.0 C 36.6 C Heart Rate [ 89 85 80 Brachial] Respiratory 20 16 Rate Blood Pressure 147/88 H [Right Brachial artery] Blood Pressure 100/72 114/72 [Right Radial artery] O2 Saturation 98 95 02/04/24 08:12 Temperature 36.8 C Heart Rate [ 80 Brachial] Respiratory 18 Rate Blood Pressure [Right Brachial artery] Blood Pressure 127/77 [Right Radial artery] O2 Saturation 92 Oxygen O2 Source Room air I&O (Last 24 Hrs): Intake and Output Totals x24h 02/02/24 02/03/24 02/04/24 23:59 23:59 23:59 Intake Total 431 1060 Balance 431 1060 - Results Results: Laboratory Results WBC 3.8 x10^3/uL (4.8-10.8) L 01/25/24 05:43 RBC 4.32 10^6/uL (4.20-5.40) 01/25/24 05:43 Hgb 12.4 g/dL (12.0-16.0) 01/25/24 05:43 Hct 37.3 % (37.0-47.0) 01/25/24 05:43 MCV 86.3 fL (81.0-99.0) 01/25/24 05:43 MCH 28.7 pg (27.0-31.0) 01/25/24 05:43 MCHC 33.2 g/dL (32.0-36.0) 01/25/24 05:43 RDW 12.8 % (12.0-15.0) 01/25/24 05:43 Plt Count 131 10^3/uL (130-450) 01/25/24 05:43 MPV 9.4 fL (7.9-10.8) 01/25/24 05:43 Neut # (Auto) 2.3 10^3/uL (1.5-6.6) 01/25/24 05:43 Lymph # (Auto) 1.1 10^3/uL (1.5-3.5) L 01/25/24 05:43 [place] # (Auto) 0.4 10^3/uL (0.0-1.0) 01/25/24 05:43 Eos # (Auto) 0.0 10^3/uL (0.0-0.7) 01/25/24 05:43 Baso # (Auto) 0.0 10^3/uL (0.0-0.1) 01/25/24 05:43 Absolute Nucleated RBC 0.00 x10^3/uL 01/25/24 05:43 Nucleated RBC % 0.0 /100WBC 01/25/24 05:43 Sodium 137 mmol/L (135-145) 02/04/24 07:23 Potassium 4.2 mmol/L (3.5-4.5) 02/04/24 07:23 Chloride 99 mmol/L (101-111) L 02/04/24 07:23 Carbon Dioxide 32 mmol/L (21-32) 02/04/24 07:23 Anion Gap 6.0 (6-13) 02/04/24 07:23 BUN 50 mg/dL (6-20) H 02/04/24 07:23 Creatinine 1.5 mg/dL (0.6-1.3) H 02/04/24 07:23 Estimated GFR (MDRD) 34 (>89) L 02/04/24 07:23 Glucose 97 mg/dL (74-104) 02/04/24 07:23 Lactic Acid 0.9 mmol/L (0.5-2.2) 01/23/24 19:03 Calcium 9.8 mg/dL (8.5-10.3) 02/04/24 07:23 Phosphorus 4.8 mg/dL (2.5-5.0) 01/31/24 05:54 Magnesium 2.0 mg/dL (1.7-2.3) 01/31/24 05:54 Total Bilirubin 0.9 mg/dL (0.2-1.0) 01/23/24 19:03 AST 17 IU/L (10-42) 01/23/24 19:03 ALT 9 IU/L (10-60) L 01/23/24 19:03 Alkaline Phosphatase 68 IU/L (42-121) 01/23/24 19:03 Total Protein 7.2 g/dL (6.4-8.9) 01/23/24 19:03 Albumin 4.5 g/dL (3.2-5.5) 01/23/24 19:03 Globulin 2.7 g/dL (2.1-4.2) 01/23/24 19:03 Albumin/Globulin Ratio 1.7 (1.0-2.2) 01/23/24 19:03 Lipase 38 U/L (11-82) 01/23/24 19:03 Cortisol AM Sample 10.9 ug/dL 02/04/24 07:23 Urine Color YELLOW 01/23/24 19: Urine Clarity CLOUDY (CLEAR) 01/23/24 19: Urine pH 8.5 PH (5.0-7.5) H 01/23/24 19: Ur Specific [place] 1.015 (1.002-1.030) 01/23/24 19: Urine Protein TRACE mg/dL (NEGATIVE) 01/23/24 19: Urine Glucose (UA) NEGATIVE mg/dL (NEGATIVE) 01/23/24: Urine Ketones NEGATIVE mg/dL (NEGATIVE) 01/23/24 19: Urine Occult Blood MODERATE (NEGATIVE) H 01/23/24 19: Urine Nitrite POSITIVE (NEGATIVE) H 01/23/24: Urine Bilirubin NEGATIVE (NEGATIVE) 01/23/24 19: Urine Urobilinogen 0.2 (NORMAL) E.U./dL (NORMAL) 01/23/24 19: Ur Leukocyte Esterase TRACE (NEGATIVE) H 01/23/24 19: Urine RBC 6-10 /HPF (0-5) H 01/23/24 19: Urine WBC 4-5 /HPF (0-5) 01/23/24 19: Ur Squamous Epith Cells RARE Squamous (<= Few) 01/23/24 19:27 Amorphous Sediment Few /LPF 01/23/24 19:27 Urine Bacteria Many /HPF (None Seen) H 01/23/24 19: Ur Microscopic Review INDICATED 01/23/24 19:27 Urine Culture Comments INDICATED 01/23/24 19:27 Nasal Adenovirus (PCR) NOT DETECTED 01/23/24 20:07 Nasal B. parapertussis DNA (PCR) NOT DETECTED 01/23/24 20:07 Nasal Coronavir 229E PCR NOT DETECTED 01/23/24 20:07 Nasal Coronavir HKU1 PCR NOT DETECTED 01/23/24 20:07 Nasal Coronavir NL63 PCR NOT DETECTED 01/23/24 20:07 Nasal Coronavir OC43 PCR NOT DETECTED 01/23/24 20:07 Nasal Enterovir/Rhinovir PCR NOT DETECTED 01/23/24 20:07 Nasal Influenza B PCR NOT DETECTED 01/23/24 20:07 Nasal Influenza A PCR NOT DETECTED 01/23/24 20:07 Nasal Parainfluen 1 PCR NOT DETECTED 01/23/24 20:07 Nasal Parainfluen 2 PCR NOT DETECTED 01/23/24 20:07 Nasal Parainfluen 3 PCR NOT DETECTED 01/23/24 20:07 Nasal Parainfluen 4 PCR NOT DETECTED 01/23/24 20:07 Nasal RSV (PCR) NOT DETECTED 01/23/24 20:07 Nasal B.pertussis DNA PCR NOT DETECTED 01/23/24 20:07 Nasal C.pneumoniae (PCR) NOT DETECTED 01/23/24 20:07 [place] Human Metapneumo PCR NOT DETECTED 01/23/24 20:07 Nasal M.pneumoniae (PCR) NOT DETECTED 01/23/24 20:07 Nasal SARS-CoV-2 (PCR) DETECTED A 01/23/24 20:07 - Procedures Procedures: Procedures ING HERNIA REP-GRAFT NOS (05/18/13) UNIL FEMOR HRN REP-GRFT (05/18/13) Sepsis Event Note (H) - Evaluation Current Stage of Sepsis: Resolved ABX Reporting Has patient been on IV antibiotics over the past 48 hours?: No
[2024-02-04] MEDS: SODIUM CHLORIDE 0.9% 1,000 ML IV SCH (08:51)
[2024-02-04 09:58] LABS: BASOPHILS % (AUTO) 0.2 %; EOSINOPHILS % (AUTO) 0.2 %; HCT - HEMATOCRIT 36.6 % (37.0-47.0); HGB - HEMOGLOBIN 11.5 g/dL (12.0-16.0); LYMPHOCYTES # (AUTO) 1.4 10^3/uL (1.5-3.5); LYMPHOCYTES % (AUTO) 32.1 %; MEAN CORPUSCULAR HEMOGLOBIN 27.6 pg (27.0-31.0); MEAN CORPUSCULAR HGB CONC 31.4 g/dL (32.0-36.0); MEAN CORPUSCULAR VOLUME 87.8 fL (81.0-99.0); MEAN PLATELET VOLUME 9.5 fL (7.9-10.8); MONOCYTES # (AUTO) 0.4 10^3/uL (0.0-1.0); NEUTROPHILS # (AUTO) 2.5 10^3/uL (1.5-6.6); NEUTROPHILS % (AUTO) 57.3 %; PLT - PLATELET COUNT 225 10^3/uL (130-450); RED BLOOD COUNT 4.17 10^6/uL (4.20-5.40); RED CELL DISTRIBUTION WIDTH 12.8 % (12.0-15.0); WHITE BLOOD COUNT 4.3 x10^3/uL (4.8-10.8)
[2024-02-04] MEDS ORDERED: ZINC OXIDE 20% OINT 30 GM TUBE TOP PRN (14:31)
[2024-02-04] MEDS: COD LIVER OIL/ZINC OXIDE 113 GM TUBE TOP PRN (14:44)
[2024-02-05 15:07] LABS: ALBUMIN 3.8 g/dL (3.2-5.5); ALBUMIN/GLOBULIN RATIO 1.3 (1.0-2.2); BILIRUBIN,TOTAL 0.5 mg/dL (0.2-1.0); CREATININE 1.1 mg/dL (0.6-1.3); TOTAL PROTEIN 6.7 g/dL (6.4-8.9)
--- NOTE | 2024-02-05 18:58 | PROVIDER PROGRESS NOTE ---
Assessment/Plan - Problem List (1) BONNY (acute kidney injury) Assessment/Plan: Improving Creatinine improved to 1.1 from 1.5 Continue 1 more days of fluid (2) Fall at senior living Qualifiers: Encounter type: initial encounter Qualified Code(s): W19.XXXA - Unspecified fall, initial encounter; Y92.129 - Unspecified place in senior living as the place of occurrence of the external cause Assessment/Plan: Work with PT OT SNF placement at time of discharge (3) COVID-19 Assessment/Plan: Resolved (4) Hypertension, uncontrolled Assessment/Plan: Labile blood pressure With orthostatic hypotension On compression stocking Poor equilibrate function (5) Orthostatic hypotension Assessment/Plan: refractory Give IV fluid Use compression stocking Encourage oral intake (6) Malnutrition Qualifiers: Malnutrition type: protein-calorie malnutrition Protein-calorie malnutrition severity: unspecified severity Qualified Code(s): E46 - Unspecified protein-calorie malnutrition Assessment/Plan: Continue give appetite stimulants Encourage oral intake Dietary supplement (7) At risk for malnutrition Assessment/Plan: Nutrition consult - Current Meds Current Meds: Current Medications Generic Name Dose Route Start Last Admin Trade Name Freq PRN Reason Stop Dose Admin Acetaminophen 650 mg 01/24/24 00:41 01/30/24 09:01 Acetaminophen 325 Mg Tablet PO 650 mg Q4HR PRN Administration Pain or Fever > 38C (100.4F) Atorvastatin Calcium 20 mg 01/24/24 21:00 02/04/24 20:25 Atorvastatin 10 Mg Tablet PO 20 mg QPM RENETTA Administration Donepezil HCl 5 mg 01/24/24 21:00 02/04/24 20:25 Donepezil 5 Mg Tablet PO 5 mg QPM RENETTA Administration Enoxaparin Sodium 40 mg 01/24/24 09:00 02/05/24 08:46 Enoxaparin 40 Mg/0.4 Ml Syringe SUBQ 40 mg DAILY RENETTA Administration Sodium Chloride 1,000 mls @ 83.333 mls/hr 02/04/24 09:00 02/05/24 08:48 Normal Saline 0.9% IV 83.333 mls/hr .Q12H RENETTA Administration Magnesium Oxide 400 mg 01/25/24 18:39 02/05/24 08:46 Magnesium Oxide 400 Mg Tablet PO 400 mg DAILYWM RENETTA Administration Megestrol Acetate 400 mg 02/03/24 12:00 02/05/24 08:46 Megestrol 400 Mg/10 Ml Udc PO 400 mg DAILY RENETTA Administration Mirtazapine 15 mg 01/24/24 21:00 02/04/24 20:25 Mirtazapine 15 Mg Tablet PO 15 mg QPM RENETTA Administration Multivitamins/Minerals 1 tab 01/27/24 12:00 02/05/24 08:46 Multivitamin W/Minerals Tablet PO 1 tab DAILYWM RENETTA Administration Risperidone 1 mg 01/24/24 21:00 02/04/24 20:25 Risperidone 1 Mg Tablet PO 1 mg QPM RENETTA Administration Senna 8.6 - 17.2 mg 02/03/24 10:00 02/05/24 08:46 Senna 8.6 Mg Tablet PO 8.6 mg DAILY RENETTA Administration Sodium Chloride 10 ml 01/23/24 20:28 01/31/24 20:59 Sodium Chloride Flush 0.9% 10 Ml Syringe IVP 10 ml PRN PRN Administration NEEDED PER PROVIDER ORDERS Sodium Chloride 10 ml 01/24/24 01:00 02/05/24 17:39 Sodium Chloride Flush 0.9% 10 Ml Syringe IVP Not Given 0100,0900,1700 RENETTA Throat Lozenges 1 lozenge 01/25/24 11:39 01/25/24 12:29 Benzocaine/Menthol Lozenge MM 1 lozenge Q2HR PRN Administration Mouth Sore Pain Trazodone HCl 25 mg 01/24/24 21:00 02/04/24 20:25 Trazodone 50 Mg Tablet PO 25 mg QPM RENETTA Administration Zinc Oxide 113 gm 02/04/24 14:13 02/04/24 14:44 Cod Liver Oil/Zinc Oxide 113 Gm Tube TOP 1 applic PRN PRN Administration Skin Care - Lab Result Lab results reviewed: Yes Fish Bone Diagrams: 02/04/24 07:23 02/05/24 14:46 - Additional Planning Condition/Complexity: Other (Not improved) My Orders: My Active Orders 02/06/24 05:00 BMP - BASIC METABOLIC PANEL [CHEM] DAILYLAB CBC [CBC - COMP BLD CT W/AUTO DIFF] [HEME] DAILYLAB 02/07/24 05:00 BMP - BASIC METABOLIC PANEL [CHEM] DAILYLAB CBC [CBC - COMP BLD CT W/AUTO DIFF] [HEME] DAILYLAB 02/08/24 05:00 BMP - BASIC METABOLIC PANEL [CHEM] DAILYLAB CBC [CBC - COMP BLD CT W/AUTO DIFF] [HEME] DAILYLAB 02/09/24 05:00 BMP - BASIC METABOLIC PANEL [CHEM] DAILYLAB CBC [CBC - COMP BLD CT W/AUTO DIFF] [HEME] DAILYLAB 02/10/24 05:00 BMP - BASIC METABOLIC PANEL [CHEM] DAILYLAB CBC [CBC - COMP BLD CT W/AUTO DIFF] [HEME] DAILYLAB Plan Discussed with:: Patient Time Spent: 15-30 minutes Subjective - Subjective Patient Reports: Other (Demented, states she feels fine all the time) Objective Vital Signs: Vital Signs - 24 hr 02/04/24 02/05/24 02/05/24 23:33 05:32 07:53 Temperature 37.0 C 36.9 C 36.6 C Heart Rate [ 90 71 72 Brachial] Respiratory 18 16 18 Rate Blood Pressure 175/90 H 150/75 H 146/79 H [Right Brachial artery] O2 Saturation 97 97 97 02/05/24 16:27 Temperature 37.0 C Heart Rate [ 86 Brachial] Respiratory 16 Rate Blood Pressure 131/78 H [Right Brachial artery] O2 Saturation 93 Oxygen O2 Source Room air I&O (Last 24 Hrs): Intake and Output Totals x24h 02/03/24 02/04/24 02/05/24 23:59 23:59 23:59 Intake Total 1060 0744.892 7729 Balance 1060 0277.343 5163 General: Alert, Cooperative, Other (Forgetful, unreliable history) HEENT: PERRLA, EOMI Neck: Supple Neuro: Alert, Non Focal Respiratory: No respiratory distress Abdomen: Normal bowel sounds, No tenderness Extremities: No edema, Normal pulses - Results Results: Laboratory Results WBC 4.3 x10^3/uL (4.8-10.8) L 02/04/24 07:23 RBC 4.17 10^6/uL (4.20-5.40) L 02/04/24 07:23 Hgb 11.5 g/dL (12.0-16.0) L 02/04/24 07:23 Hct 36.6 % (37.0-47.0) L 02/04/24 07:23 MCV 87.8 fL (81.0-99.0) 02/04/24 07:23 MCH 27.6 pg (27.0-31.0) 02/04/24 07: MCHC 31.4 g/dL (32.0-36.0) L 02/04/24 07:23 RDW 12.8 % (12.0-15.0) 02/04/24 07:23 Plt Count 225 10^3/uL (130-450) 02/04/24 07:23 MPV 9.5 fL (7.9-10.8) 02/04/24 07:23 Neut # (Auto) 2.5 10^3/uL (1.5-6.6) 02/04/24 07: Lymph # (Auto) 1.4 10^3/uL (1.5-3.5) L 02/04/24 07:23 [place] # (Auto) 0.4 10^3/uL (0.0-1.0) 02/04/24 07: Eos # (Auto) 0.0 10^3/uL (0.0-0.7) 02/04/24 07:23 Baso # (Auto) 0.0 10^3/uL (0.0-0.1) 02/04/24 07:23 Absolute Nucleated RBC 0.00 x10^3/uL 02/04/24 07: Nucleated RBC % 0.0 /100WBC 02/04/24 07:23 Sodium 138 mmol/L (135-145) 02/05/24 14:46 Potassium 4.0 mmol/L (3.5-4.5) 02/05/24 14:46 Chloride 105 mmol/L (101-111) 02/05/24 14:46 Carbon Dioxide 28 mmol/L (21-32) 02/05/24 14:46 Anion Gap 5.0 (6-13) L 02/05/24 14:46 BUN 34 mg/dL (6-20) H 02/05/24 14:46 Creatinine 1.1 mg/dL (0.6-1.3) 02/05/24 14:46 Estimated GFR (MDRD) 49 (>89) L 02/05/24 14:46 Glucose 135 mg/dL (74-104) H 02/05/24 14:46 Lactic Acid 0.9 mmol/L (0.5-2.2) 01/23/24 19:03 Calcium 9.0 mg/dL (8.5-10.3) 02/05/24 14:46 Phosphorus 4.8 mg/dL (2.5-5.0) 01/31/24 05:54 Magnesium 2.0 mg/dL (1.7-2.3) 01/31/24 05:54 Total Bilirubin 0.5 mg/dL (0.2-1.0) 02/05/24 14:46 AST 17 IU/L (10-42) 02/05/24 14:46 ALT 16 IU/L (10-60) 02/05/24 14:46 Alkaline Phosphatase 64 IU/L (42-121) 02/05/24 14:46 Total Protein 6.7 g/dL (6.4-8.9) 02/05/24 14:46 Albumin 3.8 g/dL (3.2-5.5) 02/05/24 14:46 Globulin 2.9 g/dL (2.1-4.2) 02/05/24 14:46 Albumin/Globulin Ratio 1.3 (1.0-2.2) 02/05/24 14:46 Lipase 38 U/L (11-82) 01/23/24 19:03 Cortisol AM Sample 10.9 ug/dL 02/04/24 07:23 Urine Color YELLOW 01/23/24 19:27 Urine Clarity CLOUDY (CLEAR) 01/23/24 19:27 Urine pH 8.5 PH (5.0-7.5) H 01/23/24 19:27 Ur Specific [place] 1.015 (1.002-1.030) 01/23/24 19:27 Urine Protein TRACE mg/dL (NEGATIVE) 01/23/24 19: Urine Glucose (UA) NEGATIVE mg/dL (NEGATIVE) 01/23/24 19: Urine Ketones NEGATIVE mg/dL (NEGATIVE) 01/23/24 19: Urine Occult Blood MODERATE (NEGATIVE) H 01/23/24 19:27 Urine Nitrite POSITIVE (NEGATIVE) H 01/23/24 19: Urine Bilirubin NEGATIVE (NEGATIVE) 01/23/24 19: Urine Urobilinogen 0.2 (NORMAL) E.U./dL (NORMAL) 02/25/24 19:27 Ur Leukocyte Esterase TRACE (NEGATIVE) H 01/23/24 19:27 Urine RBC 6-10 /HPF (0-5) H 01/23/24 19:27 Urine WBC 4-5 /HPF (0-5) 01/23/24 19:27 Ur Squamous Epith Cells RARE Squamous (<= Few) 01/23/24 19:27 Amorphous Sediment Few /LPF 01/23/24 19:27 Urine Bacteria Many /HPF (None Seen) H 01/23/24 19:27 Ur Microscopic Review INDICATED 01/23/24 19:27 Urine Culture Comments INDICATED 01/23/24 19:27 Nasal Adenovirus (PCR) NOT DETECTED 01/23/24 20:07 Nasal B. parapertussis DNA (PCR) NOT DETECTED 01/23/24 20:07 Nasal Coronavir 229E PCR NOT DETECTED 01/23/24 20:07 Nasal Coronavir HKU1 PCR NOT DETECTED 01/23/24 20:07 Nasal Coronavir NL63 PCR NOT DETECTED 01/23/24 20:07 Nasal Coronavir OC43 PCR NOT DETECTED 01/23/24 20:07 Nasal Enterovir/Rhinovir PCR NOT DETECTED 01/23/24 20:07 Nasal Influenza B PCR NOT DETECTED 01/23/24 20:07 Nasal Influenza A PCR NOT DETECTED 01/23/24 20:07 Nasal Parainfluen 1 PCR NOT DETECTED 01/23/24 20:07 Nasal Parainfluen 2 PCR NOT DETECTED 01/23/24 20:07 Nasal Parainfluen 3 PCR NOT DETECTED 01/23/24 20:07 Nasal Parainfluen 4 PCR NOT DETECTED 01/23/24 20:07 Nasal RSV (PCR) NOT DETECTED 01/23/24 20:07 Nasal B.pertussis DNA PCR NOT DETECTED 01/23/24 20:07 Nasal C.pneumoniae (PCR) NOT DETECTED 01/23/24 20:07 [place] Human Metapneumo PCR NOT DETECTED 01/23/24 20:07 Nasal M.pneumoniae (PCR) NOT DETECTED 01/23/24 20:07 Nasal SARS-CoV-2 (PCR) DETECTED A 01/23/24 20:07 - Procedures Procedures: Procedures ING HERNIA REP-GRAFT NOS (05/18/13) UNIL FEMOR HRN REP-GRFT (05/18/13) Sepsis Event Note (H) - Evaluation Current Stage of Sepsis: Resolved ABX Reporting Has patient been on IV antibiotics over the past 48 hours?: No
[2024-02-06 05:46] LABS: BASOPHILS % (AUTO) 0.2 %; EOSINOPHILS % (AUTO) 0.3 %; HCT - HEMATOCRIT 33.3 % (37.0-47.0); HGB - HEMOGLOBIN 11.1 g/dL (12.0-16.0); LYMPHOCYTES # (AUTO) 2.3 10^3/uL (1.5-3.5); LYMPHOCYTES % (AUTO) 37.7 %; MEAN CORPUSCULAR HEMOGLOBIN 28.5 pg (27.0-31.0); MEAN CORPUSCULAR HGB CONC 33.3 g/dL (32.0-36.0); MEAN CORPUSCULAR VOLUME 85.6 fL (81.0-99.0); MEAN PLATELET VOLUME 9.1 fL (7.9-10.8); MONOCYTES # (AUTO) 0.4 10^3/uL (0.0-1.0); MONOCYTES % (AUTO) 7.3 %; NEUTROPHILS # (AUTO) 3.3 10^3/uL (1.5-6.6); NEUTROPHILS % (AUTO) 54.3 %; PLT - PLATELET COUNT 190 10^3/uL (130-450); RED BLOOD COUNT 3.89 10^6/uL (4.20-5.40); RED CELL DISTRIBUTION WIDTH 12.5 % (12.0-15.0); WHITE BLOOD COUNT 6.1 x10^3/uL (4.8-10.8)
[2024-02-06 06:07] LABS: CALCIUM 9.2 mg/dL (8.5-10.3); POTASSIUM 3.9 mmol/L (3.5-4.5)
--- NOTE | 2024-02-06 09:54 | PROVIDER PROGRESS NOTE ---
Assessment/Plan - Problem List (1) BONNY (acute kidney injury) Assessment/Plan: Resolved, creatinine 1.0 today Discontinue IV fluid (2) Fall at skilled nursing Qualifiers: Encounter type: initial encounter Qualified Code(s): W19.XXXA - Unspecified fall, initial encounter; Y92.129 - Unspecified place in skilled nursing as the place of occurrence of the external cause Assessment/Plan: May be related to orthostatic hypotension Discussed the situation with the patient daughter, recommend patient to have rehab, recommend patient to be cautious when set up and standing up Continue wearing compression stocking, get up very slow (3) COVID-19 Assessment/Plan: No respiratory symptoms (4) Hypertension, uncontrolled Assessment/Plan: To avoid hypotension, to avoid worsening orthostatic hypotension Monitoring patient off antihypertensive medication (5) Orthostatic hypotension Assessment/Plan: Still positive with over 20 mmHg systolic/blood drop when patient standing up Teach patient to be very cautious when sitting up or standing up (6) Malnutrition Qualifiers: Malnutrition type: protein-calorie malnutrition Protein-calorie malnu trition severity: unspecified severity Qualified Code(s): E46 - Unspecified protein-calorie malnutrition Assessment/Plan: Encourage oral intake, give nutrition supplement (7) At risk for malnutrition Assessment/Plan: Mining Engineer follows patient - Current Meds Current Meds: Current Medications Generic Name Dose Route Start Last Admin Trade Name Freq PRN Reason Stop Dose Admin Acetaminophen 650 mg 01/24/24 00:41 01/30/24 09:01 Acetaminophen 325 Mg Tablet PO 650 mg Q4HR PRN Administration Pain or Fever > 38C (100.4F) Atorvastatin Calcium 20 mg 01/24/24 21:00 02/05/24 21:33 Atorvastatin 10 Mg Tablet PO 20 mg QPM RENETTA Administration Donepezil HCl 5 mg 01/24/24 21:00 02/05/24 21:33 Donepezil 5 Mg Tablet PO 5 mg QPM RENETTA Administration Enoxaparin Sodium 40 mg 01/24/24 09:00 02/06/24 08:05 Enoxaparin 40 Mg/0.4 Ml Syringe SUBQ 40 mg DAILY RENETTA Administration Sodium Chloride 1,000 mls @ 83.333 mls/hr 02/04/24 09:00 02/05/24 21:40 Normal Saline 0.9% IV 83.333 mls/hr .Q12H RENETTA Administration Magnesium Oxide 400 mg 01/25/24 18:39 02/06/24 08:04 Magnesium Oxide 400 Mg Tablet PO 400 mg DAILYWM RENETTA Administration Megestrol Acetate 400 mg 02/03/24 12:00 02/06/24 08:05 Megestrol 400 Mg/10 Ml Udc PO 400 mg DAILY RENETTA Administration Mirtazapine 15 mg 01/24/24 21:00 02/05/24 21:33 Mirtazapine 15 Mg Tablet PO 15 mg QPM RENETTA Administration Multivitamins/Minerals 1 tab 01/27/24 12:00 02/06/24 08:04 Multivitamin W/Minerals Tablet PO 1 tab DAILYWM RENETTA Administration Risperidone 1 mg 01/24/24 21:00 02/05/24 21:33 Risperidone 1 Mg Tablet PO 1 mg QPM RENETTA Administration Senna 8.6 - 17.2 mg 02/03/24 10:00 02/06/24 08:05 Senna 8.6 Mg Tablet PO 8.6 mg DAILY RENETTA Administration Sodium Chloride 10 ml 01/23/24 20:28 01/31/24 20:59 Sodium Chloride Flush 0.9% 10 Ml Syringe IVP 10 ml PRN PRN Administration NEEDED PER PROVIDER ORDERS Sodium Chloride 10 ml 01/24/24 01:00 02/06/24 08:05 Sodium Chloride Flush 0.9% 10 Ml Syringe IVP Not Given 0100,0900,1700 RENETTA Throat Lozenges 1 lozenge 01/25/24 11:39 01/25/24 12:29 Benzocaine/Menthol Lozenge MM 1 lozenge Q2HR PRN Administration Mouth Sore Pain Trazodone HCl 25 mg 01/24/24 21:00 02/05/24 21:32 Trazodone 50 Mg Tablet PO 25 mg QPM RENETTA Administration Zinc Oxide 113 gm 02/04/24 14:13 02/04/24 14:44 Cod Liver Oil/Zinc Oxide 113 Gm Tube TOP 1 applic PRN PRN Administration Skin Care - Lab Result Lab results reviewed: Yes Fish Bone Diagrams: 02/06/24 05:27 02/06/24 05:27 - Additional Planning Condition/Complexity: Improved (Renal function improved) My Orders: My Active Orders 02/07/24 05:00 BMP - BASIC METABOLIC PANEL [CHEM] DAILYLAB CBC [CBC - COMP BLD CT W/AUTO DIFF] [HEME] DAILYLAB 02/08/24 05:00 BMP - BASIC METABOLIC PANEL [CHEM] DAILYLAB CBC [CBC - COMP BLD CT W/AUTO DIFF] [HEME] DAILYLAB 02/09/24 05:00 BMP - BASIC METABOLIC PANEL [CHEM] DAILYLAB CBC [CBC - COMP BLD CT W/AUTO DIFF] [HEME] DAILYLAB 02/10/24 05:00 BMP - BASIC METABOLIC PANEL [CHEM] DAILYLAB CBC [CBC - COMP BLD CT W/AUTO DIFF] [HEME] DAILYLAB Time Spent: 15-30 minutes Additional Planning Notes: It appears patient has orthostatic hypotension is a chronic condition, since there are no good ways to treat such condition, recommend patient to have short- term rehab and educated patient on been slow on sitting up or standing up Plans for discharge patient tomorrow to rehab Subjective - Subjective Patient Reports: Feeling Better (atient has been pleasant and cooperative states she feels fine states that she has been eating well) Objective Vital Signs: Vital Signs - 24 hr 02/05/24 02/05/24 02/06/24 16:27 23:46 08:07 Temperature 37.0 C 36.7 C 37.0 C Heart Rate [ 86 89 85 Brachial] Respiratory 16 16 18 Rate Blood Pressure 131/78 H 180/94 H 172/92 H [Right Brachial artery] O2 Saturation 93 95 96 Oxygen O2 Source Room air I&O (Last 24 Hrs): Intake and Output Totals x24h 02/04/24 02/05/24 02/07/24 23:59 23:59 00:59 Intake Total 8907.901 5479 120 Balance 6905.952 4317 120 General: Alert, Cooperative HEENT: PERRLA, EOMI Neck: Supple Neuro: Alert, Non Focal Cardiovascular: Regular rate Respiratory: Chest non-tender, No respiratory distress Abdomen: Soft Extremities: No edema - Results Results: Laboratory Results WBC 6.1 x10^3/uL (4.8-10.8) 02/06/24 05:27 RBC 3.89 10^6/uL (4.20-5.40) L 02/06/24 05:27 Hgb 11.1 g/dL (12.0-16.0) L 02/06/24 05:27 Hct 33.3 % (37.0-47.0) L 02/06/24 05:27 MCV 85.6 fL (81.0-99.0) 02/06/24 05:27 MCH 28.5 pg (27.0-31.0) 02/06/24 05:27 MCHC 33.3 g/dL (32.0-36.0) 02/06/24 05:27 RDW 12.5 % (12.0-15.0) 02/06/24 05:27 Plt Count 190 10^3/uL (130-450) 02/06/24 05:27 MPV 9.1 fL (7.9-10.8) 02/06/24 05:27 Neut # (Auto) 3.3 10^3/uL (1.5-6.6) 02/06/24 05:27 Lymph # (Auto) 2.3 10^3/uL (1.5-3.5) 02/06/24 05:27 Beckham # (Auto) 0.4 10^3/uL (0.0-1.0) 02/06/24 05:27 Eos # (Auto) 0.0 10^3/uL (0.0-0.7) 02/06/24 05:27 Baso # (Auto) 0.0 10^3/uL (0.0-0.1) 02/06/24 05:27 Absolute Nucleated RBC 0.00 x10^3/uL 02/06/24 05:27 Nucleated RBC % 0.0 /100WBC 02/06/24 05:27 Sodium 138 mmol/L (135-145) 02/06/24 05:27 Potassium 3.9 mmol/L (3.5-4.5) 02/06/24 05:27 Chloride 107 mmol/L (101-111) 02/06/24 05:27 Carbon Dioxide 23 mmol/L (21-32) 02/06/24 05:27 Anion Gap 8.0 (6-13) 02/06/24 05:27 BUN 24 mg/dL (6-20) H 02/06/24 05:27 Creatinine 1.0 mg/dL (0.6-1.3) 02/06/24 05:27 Estimated GFR (MDRD) 55 (>89) L 02/06/24 05:27 Glucose 96 mg/dL (74-104) 02/06/24 05:27 Lactic Acid 0.9 mmol/L (0.5-2.2) 01/23/24 19:03 Calcium 9.2 mg/dL (8.5-10.3) 02/06/24 05:27 Phosphorus 4.8 mg/dL (2.5-5.0) 01/31/24 05:54 Magnesium 2.0 mg/dL (1.7-2.3) 01/31/24 05:54 Total Bilirubin 0.5 mg/dL (0.2-1.0) 02/05/24 14:46 AST 17 IU/L (10-42) 02/05/24 14:46 ALT 16 IU/L (10-60) 02/05/24 14:46 Alkaline Phosphatase 64 IU/L (42-121) 02/05/24 14:46 Total Protein 6.7 g/dL (6.4-8.9) 02/05/24 14:46 Albumin 3.8 g/dL (3.2-5.5) 02/05/24 14:46 Globulin 2.9 g/dL (2.1-4.2) 02/05/24 14:46 Albumin/Globulin Ratio 1.3 (1.0-2.2) 02/05/24 14:46 Lipase 38 U/L (11-82) 01/23/24 19:03 Cortisol AM Sample 10.9 ug/dL 02/04/24 07:23 Urine Color YELLOW 01/23/24 19:27 Urine Clarity CLOUDY (CLEAR) 01/23/24 19: Urine pH 8.5 PH (5.0-7.5) H 01/23/24 19:27 Ur Specific [place] 1.015 (1.002-1.030) 01/23/24 19:27 Urine Protein TRACE mg/dL (NEGATIVE) 01/23/24 19:27 Urine Glucose (UA) NEGATIVE mg/dL (NEGATIVE) 01/23/24 19: Urine Ketones NEGATIVE mg/dL (NEGATIVE) 01/23/24 19:27 Urine Occult Blood MODERATE (NEGATIVE) H 01/23/24 19:27 Urine Nitrite POSITIVE (NEGATIVE) H 01/23/24 19: Urine Bilirubin NEGATIVE (NEGATIVE) 01/23/24 19:27 Urine Urobilinogen 0.2 (NORMAL) E.U./dL (NORMAL) 01/23/24 19:27 Ur Leukocyte Esterase TRACE (NEGATIVE) H 01/23/24 19:27 Urine RBC 6-10 /HPF (0-5) H 01/23/24 19:27 Urine WBC 4-5 /HPF (0-5) 01/23/24 19:27 Ur Squamous Epith Cells RARE Squamous (<= Few) 01/23/24 19:27 Amorphous Sediment Few /LPF 01/23/24 19:27 Urine Bacteria Many /HPF (None Seen) H 01/23/24 19:27 Ur Microscopic Review INDICATED 01/23/24 19:27 Urine Culture Comments INDICATED 01/23/24 19:27 Nasal Adenovirus (PCR) NOT DETECTED 01/23/24 20:07 Nasal B. parapertussis DNA (PCR) NOT DETECTED 01/23/24 20:07 Nasal Coronavir 229E PCR NOT DETECTED 01/23/24 20:07 Nasal Coronavir HKU1 PCR NOT DETECTED 01/23/24 20:07 Nasal Coronavir NL63 PCR NOT DETECTED 01/23/24 20:07 Nasal Coronavir OC43 PCR NOT DETECTED 01/23/24 20:07 Nasal Enterovir/Rhinovir PCR NOT DETECTED 01/23/24 20:07 Nasal Influenza B PCR NOT DETECTED 01/23/24 20:07 Nasal Influenza A PCR NOT DETECTED 01/23/24 20:07 Nasal Parainfluen 1 PCR NOT DETECTED 01/23/24 20:07 Nasal Parainfluen 2 PCR NOT DETECTED 01/23/24 20:07 Nasal Parainfluen 3 PCR NOT DETECTED 01/23/24 20:07 Nasal Parainfluen 4 PCR NOT DETECTED 01/23/24 20:07 Nasal RSV (PCR) NOT DETECTED 01/23/24 20:07 Nasal B.pertussis DNA PCR NOT DETECTED 01/23/24 20:07 Nasal C.pneumoniae (PCR) NOT DETECTED 01/23/24 20:07 [place] Human Metapneumo PCR NOT DETECTED 01/23/24 20:07 Nasal M.pneumoniae (PCR) NOT DETECTED 01/23/24 20:07 Nasal SARS-CoV-2 (PCR) DETECTED A 01/23/24 20:07 - Procedures Procedures: Procedures ING HERNIA REP-GRAFT NOS (05/18/13) UNIL FEMOR HRN REP-GRFT (05/18/13) Sepsis Event Note (H) - Evaluation Current Stage of Sepsis: Resolved ABX Reporting Has patient been on IV antibiotics over the past 48 hours?: No
[2024-02-07 06:40] LABS: BASOPHILS % (AUTO) 0.5 %; HCT - HEMATOCRIT 33.8 % (37.0-47.0); HGB - HEMOGLOBIN 11.1 g/dL (12.0-16.0); LYMPHOCYTES # (AUTO) 1.5 10^3/uL (1.5-3.5); LYMPHOCYTES % (AUTO) 34.7 %; MEAN CORPUSCULAR HEMOGLOBIN 28.2 pg (27.0-31.0); MEAN CORPUSCULAR HGB CONC 32.8 g/dL (32.0-36.0); MEAN PLATELET VOLUME 9.4 fL (7.9-10.8); MONOCYTES # (AUTO) 0.4 10^3/uL (0.0-1.0); MONOCYTES % (AUTO) 9.8 %; NEUTROPHILS # (AUTO) 2.4 10^3/uL (1.5-6.6); NEUTROPHILS % (AUTO) 54.8 %; PLT - PLATELET COUNT 194 10^3/uL (130-450); RED BLOOD COUNT 3.93 10^6/uL (4.20-5.40); RED CELL DISTRIBUTION WIDTH 12.5 % (12.0-15.0); WHITE BLOOD COUNT 4.4 x10^3/uL (4.8-10.8)
[2024-02-07 06:52] LABS: CALCIUM 9.1 mg/dL (8.5-10.3); POTASSIUM 3.7 mmol/L (3.5-4.5)
--- NOTE | 2024-02-07 11:28 | Discharge Plan ---
"Discharge Plan for SNF / [facility] - Discharge Plan And Transition Orders Problem Reviewed?: Yes Disposition: 03 SNF DC/Xfer Condition: Stable Allergies and Adverse Reactions: Allergies Allergy/AdvReac Type Severity Reaction Status Date / Time cefaclor [From Ceclor] Allergy Intermediate Itching Verified 01/23/24 18:54 cephradine [From Velosef] Allergy Intermediate Itching Verified 01/23/24 18:54 erythromycin base Allergy Intermediate Nausea Verified 01/23/24 18:54 [Erythromycin Base] naproxen [From Naprosyn] Allergy Intermediate Rash Verified 01/23/24 18:54 sulfamethoxazole Allergy Intermediate Rash Verified 01/23/24 18:54 [From Septra] trimethoprim [From Septra] Allergy Intermediate Rash Verified 01/23/24 18:54 erythromycin estolate * Allergy Mild Nausea Verified 01/23/24 18:54 [From Ilosone] Penicillins Allergy Mild Rash Verified 01/23/24 18:54 ibuprofen [From Motrin] AdvReac Intermediate Itching Verified 01/23/24 18:54 meperidine HCl * AdvReac Intermediate Headache Verified 01/23/24 18:54 [From Demerol] bp Allergy Intermediate Edema Uncoded 01/23/24 18:54 Health Concerns: Urine culture grew E. coli and Proteus, Your UTI was treated during hospital sta y with Ceftriaxone, your fever and leukocytosis resolved. You are tested COVID-positive on 01/23/2024, your oxygen saturation has remained in the upper 90s on room air, no Antiviral treatment Indicated, you received only supportive care Regarding your falls at half-way, imaging results showed no fracture or dislocation of your facial bones, head CT no acute injury. Chest x-ray showed no fracture or other pathology. Plan of Treatment: continue PT OT to improve function the goal is to maintain your baseline function is much as possible Care Goals: Resume baseline independent ADLs Assessment: During hospital stay orthostatic hypotension noted while patient is on 60 mg of Cardizem. Decrease the dose to 30 mg. Also instructed patient to hold Cardizem if systolic blood pressure less than 130 With further PT eval, patient is recommended to discharge to SNF - SNF / [facility] Transition Orders Admit to (Facility): [facility] Discharge Diagnosis: UTI, resolved Covid-19 infection, resolved BONNY, resolved Frequent fall at home, improved Dementia, unchanged Orthostatic hypotension, persistent Medicare Certification Statement: I certify that Post Hospital snf care is medically necessary on a continuing basis for any of the conditions for which she/he is receiving care during hospitalization. Notify PCP of admission and forward orders to primary provider for signature. Weight on admission and: Weekly Other Notification Orders: Call PCP immediately if patient develops dyspnea, chest pain/tightness or edema. House Bowel Program: Yes Additional Bowel Program Orders: If no BM after 2 days, nurse may give M.O.M. 30ml PO PRN and/or ducolax Supp 1 OK and/or DEMETRIUS 250mg P.O., and/or senna 1-2 tabs PO. On day 3 nurse may give repeat above order until residents constipation is resolved. Medication Orders: PLEASE REFER TO THE DISCHARGE MEDICATION LIST. Insulin Orders?: No - Medications New Prescriptions: traZODone [Desyrel] 25 mg PO QPM 30 Days #15 tab Megestrol [Megace] 400 mg PO DAILY 30 Days ea risperiDONE [RisperDAL] 1 mg PO QPM 30 Days #30 tablet Multivitamin W/Minerals [Theragran M] 1 tab PO DAILYWM 30 Days #30 tab - Diet Type: Geriatric Texture: Regular Liquids: Thin May have monthly special meal: No - Therapies | Activity Therapy: Evaluation | Treat if indicated: PT, OT Rehabilitation Potential: Maximize functional status, Maintain present ADL Functional Activity: Activity as Tolerated Weight Bearing: Full Weight Assistance Devices: Walker Follow Up: PCP"
--- NOTE | 2024-02-07 11:32 | DISCHARGE SUMMARY ---
Discharge Summary Admit Date: 01/23/24 Discharge Date: 02/07/24 Discharging Provider: Shaquille Jorge Code Status: Attempt Resuscitation Condition at Discharge: Stable Discharge Disposition: [facility] DC/Xfer - DIAGNOSES Admission Diagnoses: frequent falls at home sepsis Covid-19 infection UTI Discharge Diagnoses with Status of Each Condition: sepsis, resolved UTI, resolved Covid-19 infection, resolved BONNY, resolved Othostatic hypotension, persistent HTN, liable - HPI History of Present Illness: Is 73 years old female with history of dementia lives at care home facility was brought in 01/23/2024 with complaints of fall, no injury. Patient is confused. History was obtained from daughter at bedside by [employer]. EMS responded to call, patient was found to be febrile of 101, tachycardia of 115, urinary urgency reported. As per ED, patient was soft to sepsis, received IV antibiotics, imaging negative for bleed. Hospitalist was consulted for admission. - HOSPITAL COURSE Hospital Course: Patient was given antibiotics after admission for UTI, completed treatment course, symptoms resolved. And COVID-19 infection appears no significant pulmonary involvement, no hypoxia therefore no treatment. Patient was medically cleared for discharge to SNF, however due to 10 days of isolation role of COVID, patient had prolonged hospital stay. Patient noted poor oral intake, developed BONNY, was given IV fluid, BONNY resolved. , To improve patient oral intake, Remeron and Megace was given which appears having positive effect. Patient was able to finish 50% of her meal service. Patient was also noted with orthostatic dizziness, positive orthostatic hypotension, which was not been corrected by IV fluid.Hypertension can be labile,With patient being demented, taking antihypertensive medication without being fully monitored, it can be a factor to compromise significantly blood pressure changes. Recommend patient to hold off antihypertensive medication. Discussed with patient daughter regarding patient medical condition, recommend family consider future long-term plan for patient care and close follow-up with primary care physician - ALLERGIES Allergies/Adverse Reactions: Allergies Allergy/AdvReac Type Severity Reaction Status Date / Time cefaclor [From Ceclor] Allergy Intermediate Itching Verified 01/23/24 18:54 cephradine [From Velosef] Allergy Intermediate Itching Verified 01/23/24 18:54 erythromycin base Allergy Intermediate Nausea Verified 01/23/24 18:54 [Erythromycin Base] naproxen [From Naprosyn] Allergy Intermediate Rash Verified 01/23/24 18:54 sulfamethoxazole Allergy Intermediate Rash Verified 01/23/24 18:54 [From Septra] trimethoprim [From Septra] Allergy Intermediate Rash Verified 01/23/24 18:54 erythromycin estolate * Allergy Mild Nausea Verified 01/23/24 18:54 [From Ilosone] Penicillins Allergy Mild Rash Verified 01/23/24 18:54 ibuprofen [From Motrin] AdvReac Intermediate Itching Verified 01/23/24 18:54 meperidine HCl * AdvReac Intermediate Headache Verified 01/23/24 18:54 [From Demerol] bp Allergy Intermediate Edema Uncoded 01/23/24 18:54 - MEDICATIONS Home Medications: Ambulatory Orders Medication Instructions Recorded Confirmed Atorvastatin [Lipitor] 20 mg PO DAILY 01/23/24 01/23/24 Multivitamin W/Minerals [Theragran 1 tab PO DAILYWM 30 Days #30 tab 02/02/24 M] traZODone [Desyrel] 25 mg PO QPM 30 Days #15 tab 02/02/24 Donepezil [Aricept] 5 mg PO QPM 30 Days #0 02/07/24 01/24/24 Megestrol [Megace] 400 mg PO DAILY 30 Days ea 02/07/24 Mirtazapine 15 mg PO QPM 30 Days #0 02/07/24 01/24/24 risperiDONE [RisperDAL] 1 mg PO QPM 30 Days #30 tablet 02/07/24 traZODone [Desyrel] 25 mg PO QPM 30 Days #15 02/07/24 01/24/24 - PHYSICAL EXAM AT DISCHARGE General Appearance: positive: No acute distress, Alert Eyes Bilateral: positive: PERRL, EOMI ENT: positive: ENT inspection nml Neck: positive: Nml inspection Respiratory: positive: Chest non-tender, No respiratory distress Cardiovascular: positive: Regular rate & rhythm Peripheral Pulses: positive: 2+ Abdomen: positive: Non-tender Neurologic/Psychiatric: positive: CN's nml (2-12), Other (Cognitive function impaired) - LABS Result Diagrams: 02/07/24 06:14 02/07/24 06:14 - SEPSIS Current Stage of Sepsis: Resolved - FOLLOW UP Follow Up: pcp - TIME SPENT Time Spent in Discharge (Minutes): 35
[2024-02-07 14:26] VITALS: BP 114/74; O2SAT 92
== END 2024-02-07 15:00 | DRG 871 ==
LOC: EDUNIT# → ED 18:48 → MS2 20:28
PROVIDERS: ADMIT Internal Medicine; ATTEND Internal Medicine
DX: A41.9 Sepsis, unspecified organism (principal); U07.1 COVID-19; N39.0 Urinary tract infection, site not specified; N17.9 Acute kidney failure, unspecified; E46 Unspecified protein-calorie malnutrition; I10 Essential (primary) hypertension; I95.1 Orthostatic hypotension; F03.90 Unspecified dementia, unspecified severity, without behavioral disturbance, psychotic disturbance, mood disturbance, and anxiety; R41.0 Disorientation, unspecified; R52 Pain, unspecified; B96.20 Unspecified Escherichia coli [E. coli] as the cause of diseases classified elsewhere; B96.4 Proteus (mirabilis) (morganii) as the cause of diseases classified elsewhere; E87.6 Hypokalemia; E83.42 Hypomagnesemia; Z91.81 History of falling; Z68.23 Body mass index [BMI] 23.0-23.9, adult
CPT/HCPCS: 36415; 70450; 70486; 71045; 80048; 80053; 81001; 82533; 83605; 83690; 83735; 84100; 84132; 85025; 87040; 87077; 87086; 87181; 87633; 96361; 96365; 97116; 97161; 97166; 97530; 97535; 99285; A9270; J1650; 81003

== ENCOUNTER 2025-01-02 18:43 | Inpatient (IN) ==
--- NOTE | 2025-01-02 19:33 | ED Physician Documentation ---
History of Present Illness Stated complaint Stated Complaint: AMS Chief complaint Chief Complaint: General History obtained from History obtained from: EMS Additonal information Additional information: 74-year-old woman with severe dementia presents by ambulance accompanied by daughter for worsening mental status, fever. Daughter thought she had a UTI 2 weeks ago. Looking at the chart it looks like she was on a weeks worth of Cipro. That would have finished about a week ago. Patient well off of her baseline, not talking at all, and noted to be febrile and tachycardic. Dolly Coma Scale Assess Eye opening: Spontaneous Verbal response: Inappropriate Motor response: Obeys Commands Total score: 13 Meds/Allgy Home Medications Ambulatory Orders Medication Instructions Recorded Confirmed atorvastatin 20 mg tablet 20 mg PO DAILY 01/23/24 01/23/24 qxuqkgtynuff-qcohqxie-lgfi 1 tab PO DAILYWM 30 days #30 tabs 02/02/24 fumarate 19 mg-folic acid 400 mcg tablet (Therapeutic-M) trazodone 50 mg tablet 25 mg (1/2 x 50 mg) PO QPM 30 days 02/02/24 #15 tabs donepezil 5 mg tablet 5 mg PO QPM 30 days ##0 02/07/24 01/24/24 megestrol 400 mg/10 mL (10 mL) 400 mg (10 mL) PO DAILY 30 days 02/07/24 oral suspension mirtazapine 15 mg tablet 15 mg PO QPM 30 days ##0 02/07/24 01/24/24 risperidone 1 mg tablet 1 mg PO QPM 30 days #30 tabs 02/07/24 trazodone 50 mg tablet 25 mg (1/2 x 50 mg) PO QPM 30 days 02/07/24 01/24/24 ##15 Allergies Allergies Allergy/AdvReac Type Severity Reaction Status Date / Time cefaclor (From Ceclor) Allergy Intermediate Itching Verified 01/02/25 18:50 cephradine (From Velosef) Allergy Intermediate Itching Verified 01/02/25 18:50 erythromycin base Allergy Intermediate Nausea Verified 01/02/25 18:50 (Erythromycin Base) naproxen (From Naprosyn) Allergy Intermediate Rash Verified 01/02/25 18:50 sulfamethoxazole (From Allergy Intermediate Rash Verified 01/02/25 18:50 Septra) trimethoprim (From Septra) Allergy Intermediate Rash Verified 01/02/25 18:50 erythromycin estolate * Allergy Mild Nausea Verified 01/02/25 18:50 (From Ilosone) Penicillins Allergy Mild Rash Verified 01/02/25 18:50 ibuprofen (From Motrin) AdvReac Intermediate Itching Verified 01/02/25 18:50 meperidine HCl * (From AdvReac Intermediate Headache Verified 01/02/25 18:50 Demerol) bp Allergy Intermediate Edema Uncoded 01/23/24 18:54 PFSH Social History Social History Smoking Status: Never smoker Do you dip or chew tobacco?: No Relationship: Child Level: Independent History of Abuse: No POLST Patient has POLST: No Exam Constitutional She appears to be in good spirits and will follow simple commands. She has a right facial twitch that the daughter says is not acute. She will answer some questions but with nonsensical answers. She is febrile and tachycardic and hypertensive. Respiratory breath sounds equal bilaterally and normal respiratory effort Cardiovascular regular rhythm noted Gastrointestinal abdomen soft to palpation and nontender to palpation Neurology GCS calculation - Eye opening: Spontaneous Verbal response: Inappropriate Motor response: Obeys Commands Dolly Coma Scale total score: 13 Results Vitals Vitals: Vital Signs - 24 hr 01/02/25 18:50 01/02/25 18:56 01/02/25 19:42 Temperature 38.2 C H Temperature Source Oral Oral Pulse Rate 118 H 123 H 114 H Respiratory Rate 18 20 18 Blood Pressure 180/100 H 192/107 H 165/97 H O2 Saturation 96 98 96 O2 Source Room air Room air Room air Pain Intensity 5 0 01/02/25 20:40 Temperature 37.8 C Temperature Source Temporal Artery Scan Pulse Rate 106 H Respiratory Rate 16 Blood Pressure 174/92 H O2 Saturation 95 O2 Source Room air Pain Intensity 0 Oxygen O2 Source Room air EKG (time done) 1924: EKG releavant findings:: EKG personally interpreted by author of this note. Relevant findings are: Sinus tachycardia with a rate of 116. No other diagnostic abnormalities. Labs Labs: Laboratory Tests 01/02/25 01/02/25 01/02/25 19:15 19:18 19:40 WBC 8.1 RBC 4.36 Hgb 12.8 Hct 39.0 MCV 89.4 MCH 29.4 MCHC 32.8 RDW 12.9 Plt Count 147 MPV 9.3 Neut # (Auto) 6.6 Lymph # (Auto) 1.0 L Smith # (Auto) 0.5 Eos # (Auto) 0.0 Baso # (Auto) 0.0 Absolute Nucleated RBC 0.00 Nucleated RBC % 0.0 Sodium 136 Potassium 4.3 Chloride 98 L Carbon Dioxide 30 Anion Gap 8.0 BUN 25 H Creatinine 1.0 Estimated GFR (MDRD) 55 L Glucose 136 H Lactic Acid 1.7 Calcium 9.2 Total Bilirubin 0.8 AST 18 ALT 11 Alkaline Phosphatase 89 Total Protein 7.6 Albumin 4.4 Globulin 3.2 Albumin/Globulin Ratio 1.4 Urine Color YELLOW Urine Clarity HAZY Urine pH 6.0 Ur Specific Advance 1.025 Urine Protein TRACE Urine Glucose (UA) NEGATIVE Urine Ketones NEGATIVE Urine Occult Blood MODERATE H Urine Nitrite NEGATIVE Urine Bilirubin NEGATIVE Urine Urobilinogen 0.2 (NORMAL) Ur Leukocyte Esterase NEGATIVE Urine RBC 6-10 H Urine WBC 0-3 Ur Squamous Epith Cells FEW Squamous Urine Bacteria Few Urine Culture Comments NOT INDICATED Nasal Adenovirus (PCR) NOT DETECTED Nasal B. parapertussis DNA (PCR) NOT DETECTED Nasal Coronavir 229E PCR NOT DETECTED Nasal Coronavir HKU1 PCR NOT DETECTED Nasal Coronavir NL63 PCR NOT DETECTED Nasal Coronavir OC43 PCR NOT DETECTED Nasal Enterovir/Rhinovir PCR NOT DETECTED Nasal Influenza B PCR NOT DETECTED Nasal Influenza A PCR NOT DETECTED Nasal Parainfluen 1 PCR NOT DETECTED Nasal Parainfluen 2 PCR NOT DETECTED Nasal Parainfluen 3 PCR NOT DETECTED Nasal Parainfluen 4 PCR NOT DETECTED Nasal RSV (PCR) NOT DETECTED Nasal B.pertussis DNA PCR NOT DETECTED Nasal C.pneumoniae (PCR) NOT DETECTED Aldair Human Metapneumo PCR DETECTED A Nasal M.pneumoniae (PCR) NOT DETECTED Nasal SARS-CoV-2 (PCR) NOT DETECTED Rads (name of study) Single view chest x-ray is normal: Relevant Findings:: Final report received and EMP independent interpretation of test PD Medical Decision Making ED course ED course: She had a UTI 2 weeks ago, now presents febrile, tachycardic, hypertensive with much worse mental status than normal noting that she is demented at baseline. Nothing obvious on exam as far as source. Workup demonstrates an unremarkable CBC with no leukocytosis, CMP also unremarkable. Urine has a bit of blood in it but no infection per se. [employer] respiratory panel showing human metapneumovirus. Chest x-ray clear. She had received a dose of Rocephin on arrival for sepsis physiology and presumed UTI but I will not continue it given the above results. She was identified for needing admission early in her stay, around 8 PM on January 02. Unfortunately no beds are available in the hospital. Daughter very understanding. Will put in boarding orders pending admission. May need PT and OT consults for higher level of care than her current assisted living which does generally require people manage some of their ADLs which she cannot right now. Care to overnight emergency physician at shift change. Discharge Plan Discharge Patient Disposition: 66 [facility] DC/Xfer Condition: Stable Clinical Impression: Sepsis, viral, Toxic metabolic encephalopathy Dementia Qualifiers: Dementia type: unspecified type Dementia severity: severe Dementia behavioral or psychological symptom: unspecified whether behavioral, psychotic, or mood d isturbance or anxiety Qualified Code(s): F03.C0 - Unspecified dementia, severe, without behavioral disturbance, psychotic disturbance, mood disturbance, and anxiety Prescriptions: No Action atorvastatin 20 MG tablet 20 mg PO DAILY Patient Comments: TAKE 1 TABLET BY MOUTH EVERY DAY trazodone 50 MG tablet 25 mg PO QPM 30 Days Qty: 15 0RF otrwuwoi-qbi-vqun fum-folic ac [Therapeutic-M] 1 TAB tablet 1 tab PO DAILYWM 30 Days Qty: 30 0RF megestrol 400 MG/10 ML suspension 400 mg PO DAILY 30 Days 0RF donepezil 5 MG tablet 5 mg PO QPM 30 Days Qty: 0 0RF Patient Comments: TAKE 1 TABLET BY MOUTH EVERY DAY AT BEDTIME trazodone 50 MG tablet 25 mg PO QPM 30 Days Qty: 15 0RF mirtazapine 15 MG tablet 15 mg PO QPM 30 Days Qty: 0 0RF Patient Comments: TAKE 1 TABLET BY MOUTH EVERY DAY AT BEDTIME risperidone 1 MG tablet 1 mg PO QPM 30 Days Qty: 30 0RF Print Language: [place]
[2025-01-02 19:34] LABS: BILIRUBIN,URINE NEGATIVE (NEGATIVE); GLUCOSE, URINE (UA) NEGATIVE (NEGATIVE); KETONES,URINE (UA) NEGATIVE (NEGATIVE); LEUKOCYTE ESTERASE, URINE NEGATIVE (NEGATIVE); NITRITE,URINE NEGATIVE (NEGATIVE); OCCULT BLOOD,URINE MODERATE (NEGATIVE); PROTEIN,URINE TRACE mg/dL (NEGATIVE); UROBILINOGEN,URINE 0.2 (NORMAL) E.U./dL (NORMAL)
[2025-01-02 19:37] LABS: CLARITY,URINE HAZY (CLEAR)
[2025-01-02 19:43] LABS: BASOPHILS % (AUTO) 0.1 %; EOSINOPHILS % (AUTO) 0.2 %; HGB - HEMOGLOBIN 12.8 g/dL (12.0-16.0); LYMPHOCYTES % (AUTO) 11.8 %; MEAN CORPUSCULAR HEMOGLOBIN 29.4 pg (27.0-31.0); MEAN CORPUSCULAR HGB CONC 32.8 g/dL (32.0-36.0); MEAN CORPUSCULAR VOLUME 89.4 fL (81.0-99.0); MEAN PLATELET VOLUME 9.3 fL (7.9-10.8); MONOCYTES # (AUTO) 0.5 10^3/uL (0.0-1.0); MONOCYTES % (AUTO) 6.6 %; NEUTROPHILS # (AUTO) 6.6 10^3/uL (1.5-6.6); NEUTROPHILS % (AUTO) 81.1 %; PLT - PLATELET COUNT 147 10^3/uL (130-450); RED BLOOD COUNT 4.36 10^6/uL (4.20-5.40); RED CELL DISTRIBUTION WIDTH 12.9 % (12.0-15.0); WHITE BLOOD COUNT 8.1 x10^3/uL (4.8-10.8)
[2025-01-02 19:48] LABS: BACTERIA,URINE Few /HPF (None Seen); SQUAMOUS EPITHELIAL CELL,UR FEW Squamous (<= Few); WBC,URINE 0-3 /HPF (0-5)
[2025-01-02 20:00] LABS: ALBUMIN 4.4 g/dL (3.2-5.5); ALBUMIN/GLOBULIN RATIO 1.4 (1.0-2.2); BILIRUBIN,TOTAL 0.8 mg/dL (0.2-1.0); CALCIUM 9.2 mg/dL (8.5-10.3); POTASSIUM 4.3 mmol/L (3.5-4.5); TOTAL PROTEIN 7.6 g/dL (6.4-8.9)
[2025-01-02] MEDS: cefTRIAXone 1 GM VIAL IVP STA (20:00)
[2025-01-02] MEDS: SODIUM CHLORIDE 1 GM TABLET PO STA (20:00)
[2025-01-02] MEDS: MAGNESIUM SULFATE 2 GRAM 2 GM/50 ML BAG IV ONE (20:13)
[2025-01-02] MEDS: CALCIUM GLUC 1,000MG/50ML-NACL 1,000 MG/50 ML BAG IV STA (20:13)
--- NOTE | 2025-01-02 20:18 | XRAY Report ---
PROCEDURE: XR Chest 1V INDICATIONS: Sepsis TECHNIQUE: One view of the chest was acquired. COMPARISON: Chest radiographs 01/24/2024 FINDINGS: Surgical changes and devices: None. Lungs and pleura: No pleural effusions or pneumothorax. No consolidation. Mediastinum: Mediastinal contours appear normal. Heart size is borderline, unchanged. Bones and chest wall: No suspicious bony lesions. Overlying soft tissues appear unremarkable. IMPRESSION: No acute cardiopulmonary process. Reviewed by: Cornell Zacarias MD on 01/02/2025 8:16 PM PST Approved by: Cornell Zacarias MD on 01/02/2025 8:16 PM PST Station ID: [id number]
[2025-01-02] MEDS: SODIUM CHLORIDE 0.9% 1,000 ML IV STA (20:45)
[2025-01-02 20:57] LABS: B. PARAPERTUSSIS- RESP PCR PAN NOT DETECTED; B. PERTUSSIS- RESP PCR PANEL NOT DETECTED; C. PNEUMONIAE- RESP PCR PANEL NOT DETECTED; CORONAVIRUS 229E-RESP PCR NOT DETECTED; CORONAVIRUS HKU1-RESP PCR NOT DETECTED; CORONAVIRUS NL63-RESP PCR NOT DETECTED; CORONAVIRUS OC43-RESP PCR NOT DETECTED; HUMAN METAPNEUMOVIRUS DETECTED; INFLUENZA A- RESP PCR PANEL NOT DETECTED; INFLUENZA B - RESP PCR PANEL NOT DETECTED; M. PNEUMONIAE- RESP PCR PANEL NOT DETECTED; PARAINFLUENZA VIRUS 1 NOT DETECTED; PARAINFLUENZA VIRUS 2 NOT DETECTED; PARAINFLUENZA VIRUS 4 NOT DETECTED; RHINOVIRUS/ENTEROVIRUS NOT DETECTED; RSV- RESP PCR PANEL NOT DETECTED; SARS-CoV-2 -RESP PCR PANEL NOT DETECTED
[2025-01-02] MEDS ORDERED: ONDANSETRON 4 MG/2 ML VIAL IVP PRN (21:09)
[2025-01-02] MEDS ORDERED: ACETAMINOPHEN 500 MG TABLET PO PRN (21:09)
--- NOTE | 2025-01-02 22:42 | ED Physician Documentation ---
ED Addendum Addendum Addendum: Patient endorsed to me by Dr. Henderson at 10 PM shift change awaiting admission for human metapneumovirus in the setting of altered mental status. No beds available overnight. Plan to endorse to incoming daytime EDMD at 7 AM shift change. Discharge Plan Discharge Patient Disposition: 66 [facility] DC/Xfer Condition: Stable Clinical Impression: Sepsis, viral, Toxic metabolic encephalopathy Dementia Qualifiers: Dementia type: unspecified type Dementia severity: severe Dementia behavioral or psychological symptom: unspecified whether behavioral, psychotic, or mood disturbance or anxiety Qualified Code(s): F03.C0 - Unspecified dementia, severe, without behavioral disturbance, psychotic disturbance, mood disturbance, and anxiety Prescriptions: No Action atorvastatin 20 MG tablet 20 mg PO DAILY Patient Comments: TAKE 1 TABLET BY MOUTH EVERY DAY trazodone 50 MG tablet 25 mg PO QPM 30 Days Qty: 15 0RF qucvthnv-eio-qcdo fum-folic ac [Therapeutic-M] 1 TAB tablet 1 tab PO DAILYWM 30 Days Qty: 30 0RF megestrol 400 MG/10 ML suspension 400 mg PO DAILY 30 Days 0RF donepezil 5 MG tablet 5 mg PO QPM 30 Days Qty: 0 0RF Patient Comments: TAKE 1 TABLET BY MOUTH EVERY DAY AT BEDTIME trazodone 50 MG tablet 25 mg PO QPM 30 Days Qty: 15 0RF mirtazapine 15 MG tablet 15 mg PO QPM 30 Days Qty: 0 0RF Patient Comments: TAKE 1 TABLET BY MOUTH EVERY DAY AT BEDTIME risperidone 1 MG tablet 1 mg PO QPM 30 Days Qty: 30 0RF Print Language: Wallisian
[2025-01-03 06:26] LABS: BASOPHILS % (AUTO) 0.6 %; EOSINOPHILS # (AUTO) 0.1 10^3/uL (0.0-0.7); EOSINOPHILS % (AUTO) 1.5 %; HCT - HEMATOCRIT 37.4 % (37.0-47.0); HGB - HEMOGLOBIN 12.2 g/dL (12.0-16.0); LYMPHOCYTES # (AUTO) 1.9 10^3/uL (1.5-3.5); LYMPHOCYTES % (AUTO) 29.6 %; MEAN CORPUSCULAR HEMOGLOBIN 29.7 pg (27.0-31.0); MEAN CORPUSCULAR HGB CONC 32.6 g/dL (32.0-36.0); MEAN PLATELET VOLUME 10.1 fL (7.9-10.8); MONOCYTES # (AUTO) 0.7 10^3/uL (0.0-1.0); NEUTROPHILS # (AUTO) 3.8 10^3/uL (1.5-6.6); NEUTROPHILS % (AUTO) 58.1 %; PLT - PLATELET COUNT 116 10^3/uL (130-450); RED BLOOD COUNT 4.11 10^6/uL (4.20-5.40); RED CELL DISTRIBUTION WIDTH 12.9 % (12.0-15.0); WHITE BLOOD COUNT 6.5 x10^3/uL (4.8-10.8)
[2025-01-03] MEDS: PANTOPRAZOLE 40 MG TABLET PO SCH (06:30)
[2025-01-03 06:35] LABS: CALCIUM 8.7 mg/dL (8.5-10.3); CREATININE 0.9 mg/dL (0.6-1.3); POTASSIUM 3.7 mmol/L (3.5-4.5)
[2025-01-03] MEDS: ENOXAPARIN 40 MG/0.4 ML SYRINGE SUBQ SCH (10:36)
--- NOTE | 2025-01-03 14:24 | ED Physician Documentation ---
ED Addendum Addendum Addendum: Reassessing the patient, she seems to have unlabored breathing. Oxygenation is adequate. She still seems a bit confused and is oriented to person and place unclear a little bit on recent events. I think she still has issues apparently with new onset confusion and weakness associated with acute viral illness. No particular headache or neck stiffness to suggest meningitis. Still waiting on bed availability for discharges. Discharge Plan Discharge Patient Disposition: [facility] DC/Xfer Condition: Stable Clinical Impression: Sepsis, viral, Toxic metabolic encephalopathy Dementia Qualifiers: Dementia type: unspecified type Dementia severity: severe Dementia behavioral or psychological symptom: unspecified whether behavioral, psychotic, or mood disturbance or anxiety Qualified Code(s): F03.C0 - Unspecified dementia, severe, without behavioral disturbance, psychotic disturbance, mood disturbance, and anxiety Prescriptions: No Action atorvastatin 20 MG tablet 20 mg PO DAILY Patient Comments: TAKE 1 TABLET BY MOUTH EVERY DAY trazodone 50 MG tablet 25 mg PO QPM 30 Days Qty: 15 0RF aktivimc-ngs-gopf fum-folic ac [Therapeutic-M] 1 TAB tablet 1 tab PO DAILYWM 30 Days Qty: 30 0RF megestrol 400 MG/10 ML suspension 400 mg PO DAILY 30 Days 0RF donepezil 5 MG tablet 5 mg PO QPM 30 Days Qty: 0 0RF Patient Comments: TAKE 1 TABLET BY MOUTH EVERY DAY AT BEDTIME trazodone 50 MG tablet 25 mg PO QPM 30 Days Qty: 15 0RF mirtazapine 15 MG tablet 15 mg PO QPM 30 Days Qty: 0 0RF Patient Comments: TAKE 1 TABLET BY MOUTH EVERY DAY AT BEDTIME risperidone 1 MG tablet 1 mg PO QPM 30 Days Qty: 30 0RF Print Language: Mauritian
--- NOTE | 2025-01-03 17:23 | PHARMACY PROGRESS NOTE ---
Best Possible Medication History Admit Date and Time: Home Medications Medication Instructions Recorded Confirmed Type atorvastatin 20 mg tablet 20 mg PO QPM 01/23/24 01/03/25 History qrvtghrbpkqc-otvbwuyv-xxrj 1 tab PO DAILYWM 30 days #30 tabs 02/02/24 01/03/25 Rx fumarate 19 mg-folic acid 400 mcg tablet (Therapeutic-M) donepezil 5 mg tablet 5 mg PO QPM 30 days ##0 02/07/24 01/03/25 Rx mirtazapine 15 mg tablet 15 mg PO QPM 30 days ##0 02/07/24 01/03/25 Rx risperidone 1 mg tablet 1 mg PO QPM 30 days #30 tabs 02/07/24 01/03/25 Rx acetaminophen 500 mg tablet 500 mg PO Q6H PRN fever or pain 01/03/25 01/03/25 History bisacodyl 10 mg rectal suppository 10 mg NV PRN PRN constipation 01/03/25 01/03/25 History cholecalciferol (vitamin D3) 25 25 mcg PO DAILY 01/03/25 01/03/25 History mcg (1,000 unit) tablet (Vitamin D3) mineral oil (Fleet Mineral Oil 118 ml NV PRN PRN constipation 01/03/25 01/03/25 History enema) polyethylene glycol 3350 17 17 g PO PRN PRN constipation 01/03/25 01/03/25 History gram/dose oral powder (Miralax) sennosides 8.6 mg tablet (senna) 17.2 mg PO PRN PRN constipation 01/03/25 01/03/25 History Processed by: Pharmacy Medications reviewed in ED?: Yes Medication History completed: Yes Secondary Source(s): Insurance records and Facility MAR as ONLY source [place] Statement: As the person ultimately responsible for medication therapy, providers are able to order a medication from an existing home medication list in [facility] via the "Reconcile Routine" prior to Confirmation of that medication by wan support specialist. Such practice is discouraged except when the physician, in their clinical judgment, deems that a medical need exists for a medication without regard to previous use.
--- NOTE | 2025-01-03 17:36 | HISTORY & PHYSICAL EXAMINATION ---
History of Present Illness Admitted From Admitted From:: [facility] assisted living History Obtained From Records Reviewed: sepsis hospitalization over one year ago. History obtained from: daughter Aida. Exam Limitations: Patient unable to give a history. History of Present Illness HPI Comment/Other: 2 weeks ago, had UTI and was treated. much worse at some time in the last 2 weeks. Daughter is unsure when her mental status has declined. At baseline, she uses a walker, feeds herself. Came into ED last night with worsening mental status. Staff at [facility] called 911 last evening for altered mental status. Shares a room at with her sister. Baseline orientation is to self, and to her daughter intermittently, and to her sister who she lives with . at baseline she is not oriented to time, or location. Meds/Allgy Home Medications Ambulatory Orders Medication Instructions Recorded Confirmed atorvastatin 20 mg tablet 20 mg PO QPM 01/23/24 01/03/25 aqmuafdilidt-cxeddedo-trhu 1 tab PO DAILYWM 30 days #30 tabs 02/02/24 01/03/25 fumarate 19 mg-folic acid 400 mcg tablet (Therapeutic-M) donepezil 5 mg tablet 5 mg PO QPM 30 days ##0 02/07/24 01/03/25 mirtazapine 15 mg tablet 15 mg PO QPM 30 days ##0 02/07/24 01/03/25 risperidone 1 mg tablet 1 mg PO QPM 30 days #30 tabs 02/07/24 01/03/25 acetaminophen 500 mg tablet 500 mg PO Q6H PRN fever or pain 01/03/25 01/03/25 bisacodyl 10 mg rectal suppository 10 mg KS PRN PRN constipation 01/03/25 01/03/25 cholecalciferol (vitamin D3) 25 25 mcg PO DAILY 01/03/25 01/03/25 mcg (1,000 unit) tablet (Vitamin D3) mineral oil (Fleet Mineral Oil 118 ml KS PRN PRN constipation 01/03/25 01/03/25 enema) polyethylene glycol 3350 17 17 g PO PRN PRN constipation 01/03/25 01/03/25 gram/dose oral powder (Miralax) sennosides 8.6 mg tablet (senna) 17.2 mg PO PRN PRN constipation 01/03/25 01/03/25 Allergies Allergies Allergy/AdvReac Type Severity Reaction Status Date / Time cefaclor (From Ceclor) Allergy Intermediate Itching Verified 01/02/25 18:50 cephradine (From Velosef) Allergy Intermediate Itching Verified 01/02/25 18:50 erythromycin base Allergy Intermediate Nausea Verified 01/02/25 18:50 (Erythromycin Base) naproxen (From Naprosyn) Allergy Intermediate Rash Verified 01/02/25 18:50 sulfamethoxazole (From Allergy Intermediate Rash Verified 01/02/25 18:50 Septra) trimethoprim (From Septra) Allergy Intermediate Rash Verified 01/02/25 18:50 erythromycin estolate * Allergy Mild Nausea Verified 01/02/25 18:50 (From Ilosone) Penicillins Allergy Mild Rash Verified 01/02/25 18:50 ibuprofen (From Motrin) AdvReac Intermediate Itching Verified 01/02/25 18:50 meperidine HCl * (From AdvReac Intermediate Headache Verified 01/02/25 18:50 Demerol) bp Allergy Intermediate Edema Uncoded 01/23/24 18:54 PFSH Social History Social History Smoking Status: Former smoker Do you dip or chew tobacco?: No Relationship: Level: Assisted Home Mobility Equipment: Walker Do you feel safe in your home environment?: Yes Suffered physical, verbal, emotional, or financial abuse?: No History of Abuse: No POLST Patient has POLST: Yes POLST Status: POLST at natue. Review of Systems Status of ROS: unobtainable due to mental status Prior Level of Functionality: ambulatory with a walker, oriented to meal times and herself and those close to her. not to time, and probably not to location Exam Constitutional normal general appearance and no apparent distress HENMT normocephalic, external ears normal, nasal mucous membranes normal and oropharynx normal Eyes conjunctivae normal Neck/C-Spine visual inspection normal Lymph no lymphadenopathy noted Chest inspection of chest normal and palpation of chest normal Respiratory breath sounds equal bilaterally, normal respiratory effort, no retractions and no use of accessory muscles Cardiovascular normal heart rate noted, regular rhythm noted, no murmur and peripheral pulses 2+ throughout Gastrointestinal abdomen normal to inspection and abdomen soft to palpation Genitourinary no CVA tenderness Extremities normal to inspection Neurology profiling machine set up operator tool II-XII intact and speech normal Psychiatry cooperative pleasantly demented. Skin skin color normal and no rash Conclusion/Plan Problem List (1) Toxic metabolic encephalopathy: Plan: 74 year old female, pleasantly demented at baseline with worsening mental status and human metapneumovirus infection. She is not hypoxic, she does not have a urinary tract infection. discussed with Dr Pulliam and decision was made to admit her due to worsening mental status and inability to meet her care need in her current environment due to this acute decompensation. I will admit her to observation status. I have discussed her HPI and PMHx with her daughter, as patient is unable to give a history. Her home medications have been started in the ED, these are continued on admission. (2) Sepsis, viral: Plan: human metapneumovirus infection causing AMS. she has some tachycardia early in her ED course, which has improved with hydration. I will continue IVF overnight. 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 She has had an acute decline since her birthday on [birth year]. She was treated for a urinary tract infection around this time and it is unclear if she improved after this. Her daughter saw her for her birthday but they did not see her for some time and did not get any reports from the staff at [facility] that the patient was any worse or any better. The next report that the daughter received on her mother's health was when EMS was called yesterday evening leading to this emergency department visit and admission. I will request PT and OT evaluations to assess patient's ability to return to her home versus the need for any rehabilitation if she is indeed skillable Daughter tells me that her mother is DNR. She states there is a POLST form at [facility]. I will request copy of this tomorrow. Daughter TRISH is Windy's surrogate medical decision maker. Qualifiers: Dementia behavioral or psychological symptom: unspecified whether behavioral, psychotic, or mood disturbance or anxiety Dementia severity: severe Dementia type: unspecified type Qualified Code(s): F03.C0 - Unspecified dementia, severe, without behavioral disturbance, psychotic disturbance, mood disturbance, and anxiety Plan I have spent 76 minutes in the care of this patient today. This includes time [id number], review and ordering of diagnostic imaging and laboratory studies and consultation with other providers.. Lab Results 01/03/25 06:15 01/03/25 06:15
[2025-01-03] MEDS: dexAMETHasone 4 MG TABLET PO STA (17:44)
[2025-01-03] MEDS: LACTATED RINGERS 1,000 ML IV SCH (18:36)
[2025-01-03] MEDS ORDERED: SODIUM CHLORIDE FLUSH 0.9% 10 ML SYRINGE IVP PRN (18:45)
[2025-01-03] MEDS ORDERED: ONDANSETRON ODT 4 MG TABLET TL PRN (18:45)
[2025-01-03] MEDS ORDERED: ACETAMINOPHEN 500 MG TABLET PO PRN (18:45)
[2025-01-03] MEDS: CHERRY SYRUP 10 ML UDC PO ONE (18:50)
[2025-01-03] MEDS: MIRTAZAPINE 15 MG TABLET PO SCH (21:01)
[2025-01-03] MEDS: ATORVASTATIN 40 MG TABLET PO SCH (21:02)
[2025-01-03] MEDS: DONEPEZIL 5 MG TABLET PO SCH (21:02)
[2025-01-03] MEDS: risperiDONE 1 MG TABLET PO SCH (21:02)
[2025-01-03] MEDS: guaiFENesin 600 MG TABLET PO SCH (21:02)
[2025-01-03] MEDS: SODIUM CHLORIDE FLUSH 0.9% 10 ML SYRINGE IVP SCH (23:58)
[2025-01-04 06:31] LABS: CALCIUM 9.2 mg/dL (8.5-10.3); CREATININE 0.8 mg/dL (0.6-1.3)
[2025-01-04 06:44] LABS: HCT - HEMATOCRIT 40.7 % (37.0-47.0); HGB - HEMOGLOBIN 13.4 g/dL (12.0-16.0); MEAN CORPUSCULAR HEMOGLOBIN 29.4 pg (27.0-31.0); MEAN CORPUSCULAR HGB CONC 32.9 g/dL (32.0-36.0); MEAN CORPUSCULAR VOLUME 89.3 fL (81.0-99.0); RED BLOOD COUNT 4.56 10^6/uL (4.20-5.40); RED CELL DISTRIBUTION WIDTH 12.6 % (12.0-15.0)
[2025-01-04 06:45] LABS: BASOPHILS % (AUTO) 0.3 %; LYMPHOCYTES % (AUTO) 22.7 %; MEAN PLATELET VOLUME 10.2 fL (7.9-10.8); MONOCYTES % (AUTO) 1.8 %; NEUTROPHILS % (AUTO) 74.7 %; PLT - PLATELET COUNT 121 10^3/uL (130-450)
[2025-01-04 06:46] LABS: ABNORMAL LYMPHS % (MANUAL) 0 %
[2025-01-04 06:55] LABS: BAND NEUTROPHILS % (MANUAL) 1 %; DIFFERENTIAL COMMENT MANUAL DIFFERENTIAL; LYMPHOCYTES # (MANUAL) 0.6 10^3/uL (1.5-3.5); LYMPHOCYTES % (MANUAL) 16 %; NEUTROPHILS # (MANUAL) 3.3 10^3/uL (1.5-6.6); PLATELET ESTIMATE, MANUAL DECREASED (<130,000) (NORMAL); PLATELET MORPHOLOGY NORMAL APPEARANCE (NORMAL); RBC MORPHOLOGY (MULTIPLE) NORMAL APPEARANCE (NORMAL); WBC MORPHOLOGY (MULTIPLE) NORMAL APPEARANCE (NORMAL)
[2025-01-04] MEDS: hydrALAZINE INJ 20 MG/ML VIAL IVP ONE (07:29)
[2025-01-04] MEDS: dexAMETHasone 4 MG TABLET PO SCH (09:09)
[2025-01-04] MEDS: HEPARIN 5,000 UNIT/ML VIAL SUBQ SCH (09:10)
--- NOTE | 2025-01-04 09:48 | PROVIDER PROGRESS NOTE ---
Subjective Prog Note Date Prog Note Date: 01/04/25 Subjective Subjective: She is doing well. taking an after lunch nap, she awakens easily. oriented to self only and does not have complaints today. Current Medications Current Medications Current Medications: Current Medications Generic Name Dose Route Start Last Admin Trade Name Freq PRN Reason Stop Dose Admin Acetaminophen 500 mg 01/03/25 18:45 Acetaminophen 500 Mg Tablet PO Q6H PRN fever or pain Atorvastatin Calcium 20 mg 01/03/25 21:00 01/03/25 21:02 Atorvastatin 40 Mg Tablet PO 20 mg QPM RENETTA Administration Dexamethasone 6 mg 01/04/25 09:00 01/04/25 09:09 Dexamethasone 4 Mg Tablet PO 01/07/25 09:01 6 mg DAILY RENETTA Administration Donepezil HCl 5 mg 01/03/25 21:00 01/03/25 21:02 Donepezil 5 Mg Tablet PO 5 mg QPM RENETTA Administration Guaifenesin 1,200 mg 01/03/25 21:00 01/04/25 09:10 Guaifenesin 600 Mg Tablet PO 1,200 mg BID RENETTA Administration Heparin Sodium (Porcine) 5,000 unit 01/04/25 09:00 01/04/25 09:10 Heparin 5,000 Unit/Ml Vial SUBQ 5,000 unit BID RENETTA Administration Lactated Ringer's 1,000 mls @ 100 mls/hr 01/03/25 18:00 01/04/25 05:08 Lr IV 100 mls/hr .Q10H RENETTA Administration Mirtazapine 30 mg 01/03/25 21:00 01/03/25 21:01 Mirtazapine 15 Mg Tablet PO 30 mg QPM RENETTA Administration Ondansetron HCl 4 mg 01/02/25 21:09 Ondansetron 4 Mg/2 Ml Vial IVP Q6HR PRN Nausea / Vomiting Ondansetron HCl 4 mg 01/03/25 18:45 Ondansetron Odt 4 Mg Tablet TL Q6HR PRN Nausea / Vomiting Pantoprazole Sodium 40 mg 01/03/25 07:00 01/04/25 05:09 Pantoprazole 40 Mg Tablet PO 40 mg QDAC RENETTA Administration Risperidone 1 mg 01/03/25 21:00 01/03/25 21:02 Risperidone 1 Mg Tablet PO 1 mg QPM RENETTA Administration Sodium Chloride 10 ml 01/03/25 18:45 Sodium Chloride Flush 0.9% 10 Ml Syringe IVP PRN PRN NEEDED PER PROVIDER ORDERS Sodium Chloride 10 ml 01/04/25 01:00 01/04/25 09:10 Sodium Chloride Flush 0.9% 10 Ml Syringe IVP 10 ml 0100,0900,1700 RENETTA Administration Objective Vital Signs/Intake & Output Vital Signs: Vital Signs x48h Temp Pulse Resp BP BP Pulse Ox 01/04/25 07:29 136/87 H 01/04/25 07:29 36.5 C 87 18 136/87 H 98 01/04/25 05:15 36.7 C 83 20 188/106 H 98 Intake & Output: Intake & Output 01/01/25 01/02/25 01/03/25 01/04/25 23:59 23:59 23:59 23:59 Intake Total 1000 / 1000 50 / 50 1240 / 1240 Output Total 800 / 800 Balance 1000 / 1000 -750 / -750 1240 / 1240 Weight (kg) 68.039 kg 62.5 kg Objective General Appearance: positive No acute distress Eyes Bilateral: positive Normal inspection and Conjunctivae nml ENT: positive ENT inspection nml Neck: positive Nml inspection Respiratory: positive No respiratory distress and Breath sounds nml Cardiovascular: positive Regular rate & rhythm Abdomen: positive No distention Skin: positive Color nml and No rash Extremities: positive No pedal edema Neurologic/Psychiatric: positive Oriented x3 Lab Results 01/04/25 05:09 01/04/25 05:09 Other Labs: Lab Results x24hrs 01/04/25 Range/Units 05:09 WBC 4.0 L (4.8-10.8) x10^3/uL RBC 4.56 (4.20-5.40) 10^6/uL Hgb 13.4 (12.0-16.0) g/dL Hct 40.7 (37.0-47.0) % MCV 89.3 (81.0-99.0) fL MCH 29.4 (27.0-31.0) pg MCHC 32.9 (32.0-36.0) g/dL RDW 12.6 (12.0-15.0) % Plt Count 121 L (130-450) 10^3/uL MPV 10.2 (7.9-10.8) fL Neut # (Auto) Not Reportable Lymph # (Auto) Not Reportable [place] # (Auto) Not Reportable Eos # (Auto) Not Reportable Baso # (Auto) Not Reportable Absolute Nucleated RBC Not Reportable Total Counted 100 Band Neuts % (Manual) 1 (0 - 10) % Abnorm Lymph % (Manual) 0 % Nucleated RBC % Not Reportable Neutrophils # (Manual) 3.3 (1.5-6.6) 10^3/uL Lymphocytes # (Manual) 0.6 L (1.5-3.5) 10^3/uL Monocytes # (Manual) 0.0 (0.0-1.0) 10^3/uL Eosinophils # (Manual) 0.0 (0-0.7) 10^3/uL Basophils # (Manual) 0.0 (0-0.1) 10^3/uL Differential Comment MANUAL DIFFERENTIAL WBC Morphology NORMAL APPEARANCE (NORMAL) Platelet Estimate DECREASED (<130,000) (NORMAL) Platelet Morphology NORMAL APPEARANCE (NORMAL) RBC Morph Micro Appear NORMAL APPEARANCE (NORMAL) Sodium 138 (135-145) mmol/L Potassium 4.0 (3.5-4.5) mmol/L Chloride 104 (101-111) mmol/L Carbon Dioxide 26 (21-32) mmol/L Anion Gap 8.0 (6-13) BUN 18 (6-20) mg/dL Creatinine 0.8 (0.6-1.3) mg/dL Estimated GFR (MDRD) 71 L (>89) Glucose 149 H (74-104) mg/dL Calcium 9.2 (8.5-10.3) mg/dL Assessment/Plan Problem List (1) Toxic metabolic encephalopathy: Impression: 01/04/25: She seems to be at baseline, or close to it. it is hard to know what her baseline is, as it seems to have changed recently. it seem that her dementia may be worsening. 01/03/25:74 year old female, pleasantly demented at baseline with worsening mental status and human metapneumovirus infection. She is not hypoxic, she does not have a urinary tract infection. discussed with Dr Pulliam and decision was made to admit her due to worsening mental status and inability to meet her care need in her current environment due to this acute decompensation. I will admit her to observation status. I have discussed her HPI and PMHx with her daughter, as patient is unable to give a history. Her home medications have been started in the ED, these are continued on admission. (2) Sepsis, viral: Impression: human metapneumovirus infection causing AMS. she has some tachycardia early in her ED course, which has improved with hydration. Continued IVF for overnight, stopped this afternoon. She appears well, albiet confused, which may be her new baseline, has not required oxygen. . (3) Dementia: Impression: 2 weeks ago, had UTI and was treated. much worse at some time in the last 2 weeks. Daughter is unsure when her mental status has declined. At baseline, she uses a walker, feeds herself. Baseline orientation is to self, and to her daughter intermittently, and to her sister who she lives with . at baseline she is not oriented to time, or location. Baseline mobility, with a walker, which she uses for fall prevention. I think that her dementia is worsening. She has been able to feed herself while here, and has been getting up with standby assist. She is clear by PT and OT to return to [facility], which she will do in the AM. I have spent 26 minutes in the care of this patient today. This includes time [id number], review and ordering of diagnostic imaging and laboratory studies. Qualifiers: Dementia behavioral or psychological symptom: unspecified whether behavioral, psychotic, or mood disturbance or anxiety Dementia severity: severe Dementia type: unspecified type Qualified Code(s): F03.C0 - Unspecified dementia, severe, without behavioral disturbance, psychotic disturbance, mood disturbance, and anxiety
--- NOTE | 2025-01-04 11:59 | PT Plan of Care ---
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 Admitted with human metapneumovirus; recent UTI and h/o dementia. Pt lives in [place] with her sister and is reportedly Jorge Luis at baseline. Upon PT eval, pt seated in b/s chair and agreeable to participate. A&O to self only. Transfers to standing with FWW and CGAx1. Requires multimodal cueing for pathfinding, walker management and safe gait pattern. OT present and assisting with line management and pt cueing. Overall, pt presenting at or near baseline which includes minor deficits in balance and strength and mod to severe cognitive deficits. When medically clear, PT recommend dc back to memory care with continued walker use and HHPT as needed. PT Plan of Care Frequency Evaluation only, no further P.T. Discharge Recommendations Discharge Location Previous Living Situation Support/Services Needed Home Health P.T. DC Equipment Recommended Front wheeled walker Other has walker Transport Needs at Discharge Wheelchair van
--- NOTE | 2025-01-04 13:22 | OT Plan of Care ---
OT Plan of Care OT Plan of Care: Diagnosis Diagnosis human metapneumovirus Chief Complaint weak, tired Onset of Chief Complaint WIRE THREADER Assessment Assessment Pt is a 73 yo female who was referred for OT evaluation secondary to generalized weakness 2/2 HMV. Baseline dementia - A &O to self only. Met sitting in chair, directable to participate with therapy. Performed ADL's and functional mobility CG using RW. Pt presents at her baseline level of function. Rec return to [facility] with services. Nor further skilled OT needed at acute level of care. Plan Treatment Frequency Evaluation only, no further O.T. Duration Until goals are met -Discharge Recommendations Discharge Location Assisted Living Facility Transport Needs at Discharge Wheelchair van
[2025-01-05 05:30] LABS: BASOPHILS % (AUTO) 0.1 %; HCT - HEMATOCRIT 37.3 % (37.0-47.0); HGB - HEMOGLOBIN 12.5 g/dL (12.0-16.0); LYMPHOCYTES % (AUTO) 15.4 %; MEAN CORPUSCULAR HEMOGLOBIN 29.5 pg (27.0-31.0); MEAN CORPUSCULAR HGB CONC 33.5 g/dL (32.0-36.0); MEAN PLATELET VOLUME 9.6 fL (7.9-10.8); NEUTROPHILS % (AUTO) 79.1 %; PLT - PLATELET COUNT 156 10^3/uL (130-450); RED BLOOD COUNT 4.24 10^6/uL (4.20-5.40); RED CELL DISTRIBUTION WIDTH 12.7 % (12.0-15.0); WHITE BLOOD COUNT 10.9 x10^3/uL (4.8-10.8)
[2025-01-05 05:48] LABS: CALCIUM 8.9 mg/dL (8.5-10.3); CREATININE 0.9 mg/dL (0.6-1.3); POTASSIUM 3.7 mmol/L (3.5-4.5)
[2025-01-05 06:30] LABS: ABNORMAL LYMPHS % (MANUAL) 2 %; BAND NEUTROPHILS % (MANUAL) 2 %; LYMPHOCYTES # (MANUAL) 1.9 10^3/uL (1.5-3.5); LYMPHOCYTES % (MANUAL) 15 %; MONOCYTES # (MANUAL) 0.7 10^3/uL (0.0-1.0); NEUTROPHILS # (MANUAL) 8.4 10^3/uL (1.5-6.6)
[2025-01-05 06:31] LABS: DIFFERENTIAL COMMENT MANUAL DIFFERENTIAL; PLATELET ESTIMATE, MANUAL NORMAL (130-450,000) (NORMAL); PLATELET MORPHOLOGY NORMAL APPEARANCE (NORMAL); RBC MORPHOLOGY (MULTIPLE) NORMAL APPEARANCE (NORMAL); WBC MORPHOLOGY (MULTIPLE) NORMAL APPEARANCE (NORMAL)
[2025-01-05 07:50] VITALS: O2SAT 96
[2025-01-05 08:04] VITALS: BP 131/79; TEMP 98.1
--- NOTE | 2025-01-05 09:56 | Discharge Summary ---
"Discharge Summary Admit Date: 01/03/25 Discharge Date: 01/05/25 Discharging Provider: Tanya Ma PA-C Primary Care Provider: Satnam Longo MD Code Status: Do Not Attempt Resuscitation DIAGNOSES Discharge Diagnoses with Status of Each Condition: Encephalopathy, resolved Viral sepsis secondary to human metapneumovirus, resolved Chronic Alzheimer's dementia HPI History of Present Illness: 2 weeks ago, had UTI and was treated. much worse at some time in the last 2 weeks. Daughter is unsure when her mental status has declined. At baseline, she uses a walker, feeds herself. Came into ED last night with worsening mental status. Staff at [facility] called 911 last evening for altered mental status. Shares a room at with her sister. Baseline orientation is to self, and to her daughter intermittently, and to her sister who she lives with . at baseline she is not oriented to time, or location. CONSULTS | PROCEDURES Procedures: Chest x-ray: No acute cardiopulmonary process. HOSPITAL COURSE Hospital Course: (1) Toxic metabolic encephalopathy: 01/05/2025: Daughter at bedside. States that her mother is indeed at her baseline level function. Encephalopathy is resolved. 01/04/25: She seems to be at baseline, or close to it. it is hard to know what her baseline is, as it seems to have changed recently. it seem that her dementia may be worsening. 01/03/25:74 year old female, pleasantly demented at baseline with worsening mental status and human metapneumovirus infection. She is not hypoxic, she does not have a urinary tract infection. discussed with Dr Pulliam and decision was made to admit her due to worsening mental status and inability to meet her care need in her current environment due to this acute decompensation. I will admit her to observation status. I have discussed her HPI and PMHx with her daughter, as patient is unable to give a history. Her home medications have been started in the ED, these are continued on admission. (2) Sepsis, viral: human metapneumovirus infection causing AMS. she has some tachycardia early in her ED course, which has improved with hydration. Continued IVF for overnight, stopped On hospital day 2. She appears well, albiet confused, which may be her new baseline, has not required oxygen . . 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 much worse at some time in the last 2 weeks. Daughter is unsure when her mental status has declined. At baseline, she uses a walker, feeds herself. Baseline orientation is to self, and to her daughter intermittently, and to her sister who she lives with . at baseline she is not oriented to time, or location. Baseline mobility, with a walker, which she uses for fall prevention. I think that her dementia is worsening. She has been able to feed herself while here, and has been getting up with standby assist. She is clear by PT and OT to return to [facility]. ALLERGIES Allergies Allergy/AdvReac Type Severity Reaction Status Date / Time cefaclor (From Ceclor) Allergy Intermediate Itching Verified 01/02/25 18:50 cephradine (From Velosef) Allergy Intermediate Itching Verified 01/02/25 18:50 erythromycin base Allergy Intermediate Nausea Verified 01/02/25 18:50 (Erythromycin Base) naproxen (From Naprosyn) Allergy Intermediate Rash Verified 01/02/25 18:50 sulfamethoxazole (From Allergy Intermediate Rash Verified 01/02/25 18:50 Septra) trimethoprim (From Septra) Allergy Intermediate Rash Verified 01/02/25 18:50 erythromycin estolate * Allergy Mild Nausea Verified 01/02/25 18:50 (From Ilosone) Penicillins Allergy Mild Rash Verified 01/02/25 18:50 ibuprofen (From Motrin) AdvReac Intermediate Itching Verified 01/02/25 18:50 meperidine HCl * (From AdvReac Intermediate Headache Verified 01/02/25 18:50 Demerol) bp Allergy Intermediate Edema Uncoded 01/23/24 18:54 MEDICATIONS Ambulatory Orders Medication Instructions Recorded Confirmed atorvastatin 20 mg tablet 20 mg PO QPM 01/23/24 01/03/25 [id number] 1 tab PO DAILYWM 30 days #30 tabs 02/02/24 01/03/25 fumarate 19 mg-folic acid 400 mcg tablet (Therapeutic-M) donepezil 5 mg tablet 5 mg PO QPM 30 days ##0 02/07/24 01/03/25 mirtazapine 15 mg tablet 15 mg PO QPM 30 days ##0 02/07/24 01/03/25 risperidone 1 mg tablet 1 mg PO QPM 30 days #30 tabs 02/07/24 01/03/25 acetaminophen 500 mg tablet 500 mg PO Q6H PRN fever or pain 01/03/25 01/03/25 bisacodyl 10 mg rectal suppository 10 mg GA PRN PRN constipation 01/03/25 01/03/25 cholecalciferol (vitamin D3) 25 25 mcg PO DAILY 01/03/25 01/03/25 mcg (1,000 unit) tablet (Vitamin D3) mineral oil (Fleet Mineral Oil 118 ml GA PRN PRN constipation 01/03/25 01/03/25 enema) polyethylene glycol 3350 17 17 g PO PRN PRN constipation 01/03/25 01/03/25 gram/dose oral powder (Miralax) sennosides 8.6 mg tablet (senna) 17.2 mg PO PRN PRN constipation 01/03/25 01/03/25 PHYSICAL EXAM AT DISCHARGE Physical Exam Other/Comments: General Appearance: positive No acute distress Eyes Bilateral: positive Normal inspection and Conjunctivae nml ENT: positive ENT inspection nml Neck: positive Nml inspection Respiratory: positive No respiratory distress and Breath sounds nml Cardiovascular: positive Regular rate & rhythm Abdomen: positive No distention Skin: positive Color nml and No rash Extremities: positive No pedal edema Neurologic/Psychiatric: positive Oriented to self only LABS 01/05/25 05:23 01/05/25 05:23 FOLLOW UP Follow Up: PCP shlomo Longo about a week. TIME SPENT Time Spent in Discharge (Minutes): 45 Discharge Plan Discharge Patient Disposition: 01 VETO, Self Care Condition: Stable Prescriptions: Continued atorvastatin 20 MG tablet 20 mg PO QPM Patient Comments: TAKE 1 TABLET BY MOUTH EVERY EVENING Therapeutic-M 1 TAB tablet 1 tab PO DAILYWM 30 Days Qty: 30 0RF donepezil 5 MG tablet 5 mg PO QPM 30 Days Qty: 0 0RF Patient Comments: TAKE 1 TABLET BY MOUTH EVERY DAY AT BEDTIME mirtazapine 15 MG tablet 15 mg PO QPM 30 Days Qty: 0 0RF Patient Comments: TAKE 1 TABLET BY MOUTH EVERY DAY AT BEDTIME risperidone 1 MG tablet 1 mg PO QPM 30 Days Qty: 30 0RF cholecalciferol (vitamin D3) [Vitamin D3] 25 mcg (1,000 unit) tablet 25 mcg PO DAILY acetaminophen 500 mg tablet 500 mg PO Q6H PRN (Reason: fever or pain) bisacodyl 10 mg suppository 10 mg GA PRN PRN (Reason: constipation) Rx Instructions: insert 1 Suppository rectally as needed for constipation if Senna not effective initiate on the 4th day of no BM sennosides [senna] 8.6 mg tablet 17.2 mg PO PRN PRN (Reason: constipation) Rx Instructions: Take 2 tabs by mouth as needed for bowel care if miralax not effective polyethylene glycol 3350 [Miralax] 17 gram/dose powder 17 g PO PRN PRN (Reason: constipation) Rx Instructions: Dissolve 1 capful (17gm) in 8 oz. of liquid and take by mouth as needed for constipation after 3 days of no BM mineral oil [Fleet Mineral Oil] Enema 118 ml GA PRN PRN (Reason: constipation) Rx Instructions: discard any unused portion. insert 1 unit rectally as needed for bowel care if supp. not effective, notify MD if no results. Activity Restrictions: Activity as Tolerated Diet: Regular Health Concerns: You are a 74-year-old female with dementia. It seems that you have declined somewhat since her birthday on [birth year]. You were treated for a urinary tract infection but you have not really bounced back since that time. You came into the hospital because there were concerns at your assisted living facility about you being ill. When you came into the hospital you tested positive for an upper respiratory infection called human metapneumovirus. This is probably the cause of your altered mental status. You have not required any oxygen since you have been here. You remain confused and oriented to yourself only. You have been seen by physical therapy and Occupational Therapy and they feel that you are safe to return to your previous living environment. I am not changing your medications at all as I am sending you back to the assisted living facility. I want you to continue your previous medications. Care Plan Goals: Return to your home living environment. Familiarity often helps in people with dementia. Assessment: Altered mental status due to human metapneumovirus Plan of Treatment: Rest Drink plenty of fluids Recovering from this virus will take time Print Language: Trinid[place] Patient Instructions: ED URI Viral Follow-up Care: Satnam Longo MD [Provider Admit Priv/Credential] -"
== END 2025-01-05 10:15 | disposition home or self-care (01) | DRG 871 ==
LOC: ED 18:43 → MS2 18:43
PROVIDERS: ADMIT Physician Assistant Medical; ATTEND Physician Assistant Medical
DX: F02.C0 Dementia in other diseases classified elsewhere, severe, without behavioral disturbance, psychotic disturbance, mood disturbance, and anxiety; G92.8 Other toxic encephalopathy; Z20.822 Contact with and (suspected) exposure to COVID-19; Z20.818 Contact with and (suspected) exposure to other bacterial communicable diseases; Z79.899 Other long term (current) drug therapy; Z87.440 Personal history of urinary (tract) infections; I10 Essential (primary) hypertension; G30.9 Alzheimer's disease, unspecified; A41.89 Other specified sepsis; Z20.828 Contact with and (suspected) exposure to other viral communicable diseases; Z87.891 Personal history of nicotine dependence; B97.81 Human metapneumovirus as the cause of diseases classified elsewhere; R31.9 Hematuria, unspecified